=== PATIENT | female | born 1945 | race African-American/Black ===

== ENCOUNTER 2017-08-19 14:19 | Emergency (ER) | payer MEDICARE, MEDICAID ==
[2017-08-19 14:57] LABS: Bilirubin Negative (Negative); Blood, Urine Negative (Negative); Glucose, Urine (Dipstick) Negative (Negative); Ketone, Urine Trace mg/dL (Negative); Nitrite Negative (Negative); Protein, Urine (Dipstick) Negative (Neg-Trace); Urobilinogen 0.2 mg/dL (0.2-1.0)
[2017-08-19 14:58] LABS: Bacteria/HPF None Seen HPF (None Seen); Hyaline Casts/LPF 0-3 HYALINE CAST LPF (0-3 Hyaline); RBC/HPF 0-3 HPF (0-3); Squamous Epithelial 0-3 HPF (0-3)
[2017-08-19 15:06] LABS: Amphetamine Not Detected (NotDetected); Methadone Not Detected (NotDetected); Methamphetamine Not Detected (NotDetected)
[2017-08-19 15:55] LABS: #Eosinphils 0.1 thou/uL (0.0-0.7); #Lymphocytes 1.8 thou/uL (1.20-3.40); #Monocytes 0.4 thou/uL (0.11-0.59); #Neutrophils 5.1 thou/uL (1.40-6.50); %Basophils 0.2 % (0.0-1.0); %Eosinophils 0.9 % (0.0-10.0); %Lymphocytes 23.8 % (21.0-51.0); %Monocytes 5.8 % (0.0-10.0); Hematocrit 41.5 % (36.0-47.0); Red Blood Cell (RBC) Count 4.74 mill/uL (4.20-5.40); White Blood Cell (WBC) Count 7.3 thou/uL (4.8-10.8)
[2017-08-19 16:17] LABS: ALT (SGPT) 14 U/L (8-55); AST (SGOT) 18 U/L (5-34); Alkaline Phosphatase 111 U/L (40-150); Anion Gap 14 mmol/L (10-20); BUN (Urea Nitrogen) 24 mg/dL (9.8-20.1); Bilirubin, Total 0.3 mg/dL (0.2-1.2); Calc. Creatinine Clearance 0 mL/min (70-130); Calcium 9.4 mg/dL (7.8-10.44); Carbon Dioxide 25 mmol/L (23-31); Chloride 107 mmol/L (98-107); Estimated GFR-MDRD 85; Globulin 3.1 g/dL (2.4-3.5); Lipase 16 U/L (8-78); Protein, Total 7.2 g/dL (6.0-8.3)
== END 2017-08-19 18:54 | disposition home or self-care (01) ==
LOC: ERS 14:19
DX: R41.0 Disorientation, unspecified (principal); R44.3 Hallucinations, unspecified; I10 Essential (primary) hypertension; Z87.891 Personal history of nicotine dependence
CPT/HCPCS: 36415; 80053; 80306; 81003; 81015; 83690; 85025; 99284

== ENCOUNTER 2017-09-16 11:43 | Day surgery (SDC) | payer MEDICARE, MEDICAID ==
[2017-09-15 15:06] VITALS: BMI 28.3
[2017-09-16 12:58] LABS: Anion Gap 13 mmol/L (10-20); BUN (Urea Nitrogen) 19 mg/dL (9.8-20.1); Calc. Creatinine Clearance 90 mL/min (70-130); Calcium 9.7 mg/dL (7.8-10.44); Carbon Dioxide 26 mmol/L (23-31); Chloride 109 mmol/L (98-107); Estimated GFR-MDRD Greater than 90; Glucose 109 mg/dL (83-110); Potassium 3.5 mmol/L (3.5-5.1); Sodium 144 mmol/L (136-145)
--- NOTE | 2017-09-16 15:37 | MRI ---
BRAIN MRI WITH AND WITHOUT CONTRAST: DATE: 09/16/17. COMPARISON: None. HISTORY: Hallucinations. TECHNIQUE: Multiplanar, multisequence MR imaging of the brain obtained with and without contrast. FINDINGS: The diffusion weighted imaging demonstrates no evidence for acute infarction. The axial gradient echo imaging demonstrates no evidence for intracranial hemorrhage. There are numerous prominent Virchow-Robbin spaces noted throughout the supratentorial brain parenchy ma with a frontal predominance. There is associated diffuse mild degree of cerebral volume loss. Postcontrast imaging demonstrates no abnormal enhancement within the brain parenchyma. The imaged paranasal sinuses and mastoid air cells demonstrate normal T2 signal intensity. Arterial flow voids at axial level of skull base appear unremarkable. On the T2 weighted imaging. IMPRESSION: 1. Cerebral volume loss with numerous prominent Virchow-Robbin spaces seen throughout the supratento rial brain parenchyma. No intracranial hemorrhage, evidence of acute infarction, ventriculomegaly, m ass effect, or abnormal enhancement seen. 2. The prominence of the Virchow-Bull space is consistent with etat crible. POS: [facility]
[2017-09-16] MEDS ORDERED: Gadobenate Dimeglumine 529 MG/1 ML (20ML VIAL) ONE (15:59)
--- NOTE | 2017-09-18 00:50 | EKG ---
Test Reason : PREOP Blood Pressure : / mmHG Vent. Rate : 057 BPM Atrial Rate : 057 BPM P-R Int : 148 ms QRS Dur : 092 ms QT Int : 410 ms P-R-T Axes : 049 040 011 degrees QTc Int : 399 ms Sinus bradycardia Otherwise normal ECG No previous ECGs available Confirmed by POLLO AVALOS, DR. Ruggiero ([id number]) on 09/18/2017 12:49:46 AM Referred By: HUMBLE Confirmed By:DR. Bahman ABAD MD
== END 2017-09-16 15:55 | disposition home or self-care (01) ==
LOC: SDC/OP 11:43 → EDSTATUS 14:00 → SDC/OP 15:55
PROVIDERS: ATTEND Psychiatry & Neurology Neurology
DX: R44.3 Hallucinations, unspecified (principal); G31.83 Neurocognitive disorder with Lewy bodies; Z79.84 Long term (current) use of oral hypoglycemic drugs; Z79.899 Other long term (current) drug therapy; Z88.0 Allergy status to penicillin
CPT/HCPCS: 36415; 70553; 80048; 93005; 93010; A9579

== ENCOUNTER 2017-09-24 07:59 | Outpatient (CLI) | payer MEDICARE, MEDICAID ==
--- NOTE | 2017-09-24 15:25 | NM ---
NUCLEAR MEDICINE CHELSI SCAN: DATE: 09/24/17. 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 4.7 mCi of I-123 of Ioflupane injected IV 1 hour later. 3-hour delayed scintigraphy of the brain performed. FINDINGS: There is uptake in the bilateral caudate nuclei, but no uptake in the bilateral putamina. This patte rn is typically seen with Parkinsonism, such as idiopathic Parkinson's disease, multiple-system atrop hy (MSA), and progressive supranuclear palsy (PSP). This pattern can sometimes also be seen with Deyvi y body disease, although not consistently. 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 POS: [facility]
== END 2017-09-24 08:00 | disposition home or self-care (01) ==
LOC: NM 07:59
PROVIDERS: ATTEND Psychiatry & Neurology Neurology
DX: R44.3 Hallucinations, unspecified (principal); G31.89 Other specified degenerative diseases of nervous system; R94.09 Abnormal results of other function studies of central nervous system
CPT/HCPCS: 78607; A9584

== ENCOUNTER 2017-10-22 07:56 | Observation (INO) | payer MEDICARE, MEDICAID ==
[2017-10-22 08:34] LABS: #Monocytes 0.3 thou/uL (0.11-0.59); #Neutrophils 2.7 thou/uL (1.40-6.50); %Basophils 0.4 % (0.0-1.0); %Eosinophils 0.4 % (0.0-10.0); %Lymphocytes 24.8 % (21.0-51.0); %Monocytes 7.3 % (0.0-10.0); %Neutrophils 67.1 % (42.0-75.0); Hemoglobin 13.9 g/dL (12.0-16.0); Mean Corpuscular HGB CONC 33.4 g/dL (32.0-36.0); Mean Corpuscular Hemoglobin 28.5 pg (27.0-31.0); Mean Corpuscular Volume 85.3 fl (81.0-99.0); Mean Platelet Volume 7.3 fL (7.4-10.4); Platelet Count 166 thou/uL (130-400); RBC Distribution Width 13.2 % (11.5-14.5)
[2017-10-22 08:55] LABS: ALT (SGPT) 18 U/L (8-55); AST (SGOT) 19 U/L (5-34); Albumin 3.9 g/dL (3.4-4.8); Alkaline Phosphatase 118 U/L (40-150); Anion Gap 12 mmol/L (10-20); BUN (Urea Nitrogen) 12 mg/dL (9.8-20.1); Bilirubin, Total 0.8 mg/dL (0.2-1.2); CK (CPK) 94 U/L (29-168); Calc. Creatinine Clearance 0 mL/min (70-130); Calcium 9.4 mg/dL (7.8-10.44); Carbon Dioxide 29 mmol/L (23-31); Chloride 103 mmol/L (98-107); Estimated GFR-MDRD 88; Globulin 2.9 g/dL (2.4-3.5); Glucose 107 mg/dL (83-110); Potassium 3.6 mmol/L (3.5-5.1); Protein, Total 6.8 g/dL (6.0-8.3); Sodium 140 mmol/L (136-145)
[2017-10-22 09:02] LABS: CKMB 1.6 ng/mL (0-6.6); Troponin I Less than 0.010 ng/mL (< 0.028)
--- NOTE | 2017-10-22 09:35 | RAD ---
PORTABLE CHEST ONE VIEW: Date: 10-22-17 Time: 9:11 a.m. History: Syncope. FINDINGS/IMPRESSION: The heart size is normal. No confluent areas of consolidation, pneumothorax, or large effusions are s een. POS: [facility]
--- NOTE | 2017-10-22 09:42 | CT ---
CT BRAIN WITHOUT CONTRAST: HISTORY: Syncope. FINDINGS: No evidence of acute infarct, hemorrhage, midline shift, or abnormal extraaxial fluid collections are seen. The ventricular size is normal and the basilar cisterns patent. Findings in the supratentori al brain parenchyma with frontal predominance, consistent with numerous prominent Virchow-Keven space s seen on brain MRI of 09/16/17 are demonstrated. The bony calvarium is intact. IMPRESSION: No CT evidence of acute intracranial process. POS: [facility]
[2017-10-22] MEDS ORDERED: HumaLOG 300 UNITS/3 ML VIAL SC PRN ×2 (11:41)
[2017-10-22] MEDS ORDERED: Dextrose 50% Abboject 50 ML SYRINGE SLOW IVP PRN (11:41)
[2017-10-22] MEDS ORDERED: Dextrose 5% in Water 1,000 ML IV PRN (11:41)
[2017-10-22] MEDS ORDERED: Ondansetron ODT 4 MG TAB PO PRN (11:41)
[2017-10-22] MEDS ORDERED: Ondansetron HCl/PF 4 MG/2 ML Vial IVP PRN (11:41)
[2017-10-22] MEDS ORDERED: Loperamide HCl 2 MG CAP PO PRN (11:41)
[2017-10-22] MEDS ORDERED: Diabetic Tussin 200 MG/10 ML UDCUP PO PRN (11:41)
[2017-10-22] MEDS ORDERED: HYDROcodone/Acetaminophen 5/325 mg Tablet PO PRN ×2 (11:41)
[2017-10-22] MEDS ORDERED: Zolpidem Tartrate 5 MG TAB PO PRN (11:41)
[2017-10-22] MEDS ORDERED: Sodium Chloride 0.65% Nasal 44 ML BOT EA NARE PRN (11:41)
[2017-10-22] MEDS ORDERED: Senokot 8.6 MG TAB PO PRN (11:41)
[2017-10-22] MEDS ORDERED: Chloraseptic Spray 180 ml Bottle PO PRN (11:41)
[2017-10-22] MEDS ORDERED: Mag-Al 1200 mg/1200 mg/30 ML UDCUP PO PRN ×2 (11:41)
[2017-10-22] MEDS ORDERED: Milk Of Magnesia 30 ML UDCUP PO PRN (11:41)
[2017-10-22] MEDS ORDERED: Loratadine 10 MG TAB PO PRN (11:41)
[2017-10-22] MEDS ORDERED: hydrALAZINE 20 MG/ML VIAL SLOW IVP PRN (11:41)
[2017-10-22] MEDS ORDERED: Acetaminophen 325 MG TAB PO PRN ×2 (11:41)
[2017-10-22] MEDS ORDERED: Lorazepam 2 MG/ML VIAL ONE (12:20)
--- NOTE | 2017-10-22 13:27 | ULT ---
BILATERAL CAROTID DUPLEX ULTRASOUND: HISTORY: Syncope. TECHNIQUE: Sanchez scale ultrasound with color flow and spectral Doppler imaging of the extracranial carotid artery systems was performed bilaterally. FINDINGS: Mild plaque formation is seen. The peak systolic velocity in the right ICA measures 66 cm/s with an end-diastolic velocity of 13 cm/ s and a systolic ratio of 0.75. The peak systolic velocity in the left ICA measures 96 cm/s with an end-diastolic velocity of 19 cm/s and a systolic ratio of 1.11. Flow in both vertebral arteries remains antegrade. IMPRESSION: No evidence of hemodynamically significant stenosis. POS: [facility]
--- NOTE | 2017-10-22 13:28 | MRI ---
MRI BRAIN WITHOUT CONTRAST: HISTORY: Syncope. Weakness. COMPARISON: MRI from 09/16/2017. CORRELATION: CT scan from earlier today. FINDINGS: No restricted diffusion is seen. The numerous prominent Virchow-Keven spaces noted throughout the neri pratentorial brain parenchyma, with a frontal predominance on the previous exam, are redemonstrated. Associated diffuse mild degree of cerebral volume loss is stable. No evidence of infarct, hemorrhage, midline shift, or abnormal extraaxial fluid collections is seen. There is mild mucosal disease of the paranasal sinuses. IMPRESSION: No evidence of acute intracranial process. POS: [facility]
--- NOTE | 2017-10-22 14:14 | SS ---
PRIMARY CARE PHYSICIAN: Lashell Matthews M.D. REASON FOR ADMISSION: Unwitnessed fall. HISTORY OF PRESENT ILLNESS: A 72-year-old -[place] female with a history of Parkinson's dise ase who had yesterday fall which was unwitnessed. She reports that she felt weakness on her left low er extremity and she was feeling numb in both lower extremities below waist. She was not able to con trol herself and she fell down on the floor. She did not lose any consciousness. With help, she was able to stand up. She was not having any pain. She did not injure anywhere. She did not have any fever, chills, chest pain, palpitation, dizziness. She denies any orthopnea or PND, but she does hav e bilateral lower extremity pitting edema especially over foot. Patient also noticed that for last c ouple of days she was dragging her left lower extremity. Currently, patient is able to move all 4 limbs. She does not have any pain anywhere in her body. Wi th these symptoms, she presented in the emergency room and emergency room physician did CT brain whic h was normal, but there was concern of underlying stroke versus syncope that is why the ER physician decided to keep this patient in hospital for observation. After admission, we did MRI brain. MRI brain came back normal. Carotid Doppler came back normal wit hout any stenosis and when I saw this patient in the emergency room, patient did not have any focal n eurological deficit. She was normal. She denies any UTI symptoms. She denies any constipation, genet rrhea, melena, hematochezia. She denies any flu-like illness. ALLERGIES: PENICILLIN. CURRENT HOME MEDICATIONS: The patient does not have any medications with her at this point, so unabl e to review, but based on our previous hospitalization and discharge summary, patient is on the follo wing medications: Amlodipine 5 mg p.o. daily, Celexa 10 mg p.o. daily, Lasix 20 mg p.o. b.i.d., metf ormin 500 mg p.o. daily, oxybutynin 5 mg p.o. daily, potassium chloride 10 mEq p.o. daily, and Seroqu el 50 mg p.o. at bedtime. REVIEW OF SYSTEMS: The following complete review of systems was negative, unless otherwise mentioned in the HPI or below: Constitutional: Weight loss or gain, ability to conduct usual activities. Skin: Rash, itching. Eyes: Double vision, pain. ENT/Mouth: Nose bleeding, neck stiffness, pain, tenderness. Cardiovascular: Palpitations, dyspnea on exertion, orthopnea. Respiratory: Shortness of breath, wheezing, cough, hemoptysis, fever or night sweats. Gastrointestinal: Poor appetite, abdominal pain, heartburn, nausea, vomiting, constipation, or diarr hea. Genitourinary: Urgency, frequency, dysuria, nocturia. Musculoskeletal: Pain, swelling. Neurologic/Psychiatric: Anxiety, depression. Allergy/Immunologic: Skin rash, bleeding tendency. Please see my HPI for pertinent positive and negative. All other review of systems reviewed and nega tive except as mentioned in HPI. PAST MEDICAL HISTORY: Diabetes type 2, hypertension, Parkinson's disease, recurrent urinary tract in fection. PAST PSYCHIATRIC HISTORY: Anxiety and depression. PAST SURGICAL HISTORY: Recent colonoscopy and polypectomy. SOCIAL HISTORY: Patient drinks alcohol socially and occasionally. She is a former smoker. She quit smoking in 1974. She lives at home with her . FAMILY HISTORY: No strong family history of premature coronary artery disease, stroke or cancer. No family history of sudden cardiac . EMERGENCY ROOM COURSE: Reviewed. PHYSICAL EXAMINATION: VITAL SIGNS: On arrival, blood pressure 162/69, pulse 72, respiratory rate 16, temperature 99.3, sat uration 94% on room air, weight 72 kilograms. GENERAL: Patient is currently alert, awake, no obvious acute distress. HEAD: Normocephalic, atraumatic. EYES: Pupils round and reactive to light. Extraocular muscle intact. No nystagmus. ENT: Oropharynx within normal limits. Moist mucous membranes, no oral lesion, no pharyngeal erythem a, no exudate. NECK: Supple, no JVD, no thyromegaly, no carotid bruit. No jugular venous distention. LUNGS: Clear to auscultation without any rhonchi or rales. CARDIAC: S1 and S2 regular. No murmur, no gallop, no rub. ABDOMEN: Soft, bowel sounds present, nontender, nondistended. No organomegaly, no mass, no suprapub ic tenderness. BACK: Examination unremarkable. No CVA tenderness. EXTREMITIES: Upper extremity passive movements of all joints are normal. Lower extremity; patient i s slightly weak on the left side, but she is very hard to determine because she is not cooperative co mpletely with strength phipps. Sensation is intact. Reflexes symmetrical. No cerebellar sign. NEUROLOGIC: Patient is alert and oriented x3. Cranial nerves II-XII intact. I am not able to find any focal neurological deficit on neurologic examination. SKIN: No skin rash. PSYCHIATRIC: Normal affect. IMAGING DATA AND SIGNIFICANT LABORATORY DATA: 1. EKG showing normal sinus rhythm. 2. CT brain based on my review, no acute intracranial process. 3. Chest x-ray based on my review, no acute cardiopulmonary process. 4. MRI brain based on my review and reported as no acute CVA. 5. Carotid Doppler based on my review and reported as no stenosis. 6. CBC: WBC 4.0, hemoglobin 13.9, platelets 166. 7. BMP: Sodium 140, potassium 3.6, chloride 103, carbon dioxide 29, anion gap 12, BUN 12, creatinin e 0.78, glucose 107, calcium 9.4. 8. LFT: AST 19, ALT 18, alkaline phosphatase 118, and albumin 3.9. CK 94, CK-MB 1.6, troponin I le ss than 0.010. ASSESSMENT AND PLAN/IMPRESSION: 1. Unwitnessed mechanical fall. Based on history, I am not suspecting syncope given there is no los s of consciousness. I am not suspecting any acute CVA given symptoms started about 4 days ago of monique gging leg and fall yesterday and negative CT scan and MRI brain is also normal and carotid Doppler is also unremarkable. Her electrocardiogram was normal and monitor in the emergency room not showing a ny arrhythmia and patient does not have any palpitations, so arrhythmia unlikely. We will keep this patient in the hospital for few more hours and later on today we will consider discharging her home i f continued to be stable. 2. Hypertension. Continue amlodipine 5 mg p.o. daily and Lasix 20 mg p.o. b.i.d. 3. Diabetes type 2. Continue metformin 500 mg p.o. daily. Watch for hyperglycemia protocol treatme nt. 4. Recurrent urinary tract infection. I will check urinalysis just to make sure there is no urinary tract infection going on. If her urinalysis is suggestive of urinary tract infection, then I will g rissa her oral antibiotic therapy. We will continue Ditropan 5 mg p.o. daily. 5. Anxiety and depression. Continue Celexa 10 mg p.o. daily and Seroquel 50 mg p.o. at bedtime. 6. Parkinson's disease. The patient is not on any specific treatment for Parkinson's disease at thi s point. 7. Deep venous thrombosis prophylaxis not needed because we are expecting discharge maybe later on t . 8. Gastrointestinal prophylaxis, Pepcid 20 mg p.o. b.i.d. CODE STATUS: Patient is FULL CODE. Patient's is surrogate decision maker. Disposition plan based on clinical course. We may cancel echocardiography if it is not done today. DATE OF ADMISSION: 10/22/2017 DATE OF DISCHARGE: 10/22/2017 DISCHARGE DISPOSITION: Home. PRIMARY DISCHARGE DIAGNOSES: Mechanical fall, ruled out syncope, CVA and cardiac etiology. SECONDARY DISCHARGE DIAGNOSES: Hypertension, recurrent urinary tract infection, Parkinson's disease, diabetes type 2, anxiety and depression. PRIMARY PROCEDURES/OPERATIONS: None. RADIOLOGICAL INVESTIGATIONS: Chest x-ray, CT brain, MRI brain, carotid Doppler. SIGNIFICANT LABORATORY DATA: Please see above. CONTRAINDICATIONS: None. CODE STATUS: FULL CODE. INPATIENT CONSULTANTS: None. ALLERGIES: PENICILLIN. DISCHARGE PLAN: Post hospital, patient is advised to follow up with primary care physician in 1 week . HOSPITAL COURSE: The patient was having unwitnessed mechanical fall at home and subsequently we susp ected syncope versus CVA and that is why we are going to keep in hospital. She was admitted at 10:50 a.m. and we will observe for few more hours in hospital on telemetry floor. We have already ruled o ut CVA, cardiac etiology and arrhythmia so far. We will consider discharging this patient around 7:0 0 p.m. The patient is admitted and discharged on the same day.
[2017-10-22 16:03] VITALS: BMI 27.3
[2017-10-22 17:39] LABS: Bilirubin Negative (Negative); Blood, Urine Negative (Negative); Clarity CLEAR (Clear); Glucose, Urine (Dipstick) Negative (Negative); Leukocyte Negative (Negative); Nitrite Negative (Negative); Protein, Urine (Dipstick) Negative (Neg-Trace); Specific Gravity, Urine 1.016 (1.002-1.036); pH, Urine 5.5 (5.0-9.0)
[2017-10-22 17:48] LABS: Bacteria/HPF None Seen HPF (None Seen); Hyaline Casts/LPF 0-3 HYALINE CAST LPF (0-3 Hyaline); Squamous Epithelial None Seen HPF (0-3); WBC/HPF 0-3 HPF (0-3)
[2017-10-22] MEDS: Furosemide 20 MG TAB PO SCH ×2 (20:37→21:20)
[2017-10-22] MEDS: Famotidine 20 MG TAB PO SCH (20:37)
[2017-10-22] MEDS ORDERED: Non-Formulary Item 1 EACH (Quetiapine Fumarate [Seroquel] 50 MG) PO SCH (21:00)
[2017-10-22] MEDS ORDERED: Famotidine 20 MG TAB PO SCH (21:00)
[2017-10-23 04:47] LABS: Cardiac Risk 4.6 (Less than 4.5)
[2017-10-23] MEDS ORDERED: metFORMIN 500 MG TAB PO SCH (08:00)
[2017-10-23] MEDS: Furosemide 20 MG TAB PO SCH (08:43)
[2017-10-23] MEDS: Famotidine 20 MG TAB PO SCH (08:43)
[2017-10-23] MEDS ORDERED: Oxybutynin 5 MG TAB PO SCH (09:00)
[2017-10-23] MEDS ORDERED: Citalopram 10 MG TAB PO SCH (09:00)
[2017-10-23] MEDS ORDERED: Amlodipine 5 MG TAB PO SCH (09:00)
[2017-10-23] MEDS ORDERED: Potassium Chloride 10 MEQ TAB PO SCH (09:00)
[2017-10-23] MEDS ORDERED: Prevnar 13-Val Conj/PF 0.5 ML SYRINGE IM ONE (09:00)
--- NOTE | 2017-10-23 09:46 | PDOC.PN ---
- Subjective Encounter Start Date: 10/23/17 Encounter Start Time: 07:30 Patient seen and examined. No new complaints. No overnight events - Objective Resuscitation Status: Resuscitation Status FULL:Full Resuscitation MAR Reviewed: Yes Vital Signs & Weight: Vital Signs (12 hours) Temp Pulse Pulse Pulse Resp BP BP 10/23/17 08:42 70 10/23/17 08:15 64 68 133/60 10/23/17 07:55 98.8 F 70 18 10/23/17 07:39 98.8 F 70 18 10/23/17 04:01 98.9 F 68 16 151/67 H 10/22/17 23:52 98.8 F 62 20 BP BP Pulse Ox 10/23/17 08:42 10/23/17 08:15 115/57 L 10/23/17 07:55 10/23/17 07:39 153/67 H 94 L 10/23/17 04:01 94 L 10/22/17 23:52 151/67 H 96 Weight Weight 164 lb I&O: 10/22/17 10/23/17 10/24/17 06:59 06:59 06:59 Intake Total 240 Output Total 500 300 Balance -500 -60 Result Diagrams: 10/22/17 08:19 10/22/17 08:19 Additional Labs: Accuchecks 10/23/17 10/22/17 10/22/17 05:47 20:44 17:15 POC Glucose 95 150 H 104 Radiology Reviewed by me: Yes (mri and carotid us) EKG Reviewed by me: Yes (nsr) Phys Exam - Physical Examination Constitutional: NAD HEENT: PERRLA, moist MMs, sclera anicteric Neck: no JVD, supple Respiratory: no wheezing, no rales, no rhonchi Cardiovascular: RRR, no significant murmur, no rub Gastrointestinal: soft, non-tender, no distention, positive bowel sounds Musculoskeletal: no edema, pulses present Neurological: non-focal, normal sensation Lymphatic: no nodes Psychiatric: normal affect, A&O x 3 Skin: no rash, normal turgor Dx/Plan (1) Fall Code(s): W19.XXXA - UNSPECIFIED FALL, INITIAL ENCOUNTER Status: Acute (2) Anxiety and depression Code(s): F41.8 - OTHER SPECIFIED ANXIETY DISORDERS Status: Chronic (3) Diabetes type 2, controlled Code(s): E11.9 - TYPE 2 DIABETES MELLITUS WITHOUT COMPLICATIONS Status: Chronic (4) Hypertension Code(s): I10 - ESSENTIAL (PRIMARY) HYPERTENSION Status: Chronic - Plan cont current plan of care, plan discussed w/ family, PT/OT, psychosocial rehabilitation counselor * CVA and cardiac etiology ruled out * needs rehab * so once rehab accept will consider discharge * medication reviewed as below * symptomatic treatment. Review of Systems - Review of Systems Constitutional: negative: fever, chills, sweats, weakness, malaise, other ENT: negative: Ear Pain, Ear Discharge, Nose Pain, Nose Discharge, Nose Congestion, Mouth Pain, Mouth Swelling, Throat Pain, Throat Swelling, Other Respiratory: negative: Cough, Dry, Shortness of Breath, Hemoptysis, SOB with Excertion, Pleuritic Pain, Sputum, Wheezing Cardiovascular: negative: chest pain, palpitations, orthopnea, paroxysmal nocturnal dyspnea, edema, light headedness, other Gastrointestinal: negative: Nausea, Vomiting, Abdominal Pain, Diarrhea, Constipation, Melena, Hematochezia, Other Genitourinary: negative: Dysuria, Frequency, Incontinence, Hematuria, Retention , Other Musculoskeletal: negative: Neck Pain, Shoulder Pain, Arm Pain, Back Pain, Hand Pain, Leg Pain, Foot Pain, Other Skin: negative: Rash, Lesions, May[place], Bruising, Other - Medications/Allergies Allergies/Adverse Reactions: Allergies Allergy/AdvReac Type Severity Reaction Status Date / Time Penicillins Allergy Intermediate Rash Verified 09/15/17 14:51 Medications: Current Medications Acetaminophen (Tylenol) 650 mg PO Q4H PRN PRN Reason: Headache/Fever or Pain Hydrocodone Bitart/Acetaminophen (Sachse 5/325) 1 tab PO Q4H PRN PRN Reason: Moderate Pain (4-6) Al Hydroxide/Mg Hydroxide (Maalox) 30 ml PO Q6H PRN PRN Reason: Heartburn or Indigestion Al Hydroxide/Mg Hydroxide (Maalox) 15 ml PO Q4H PRN PRN Reason: Heartburn or Indigestion Amlodipine Besylate (Norvasc) 5 mg PO DAILY [facility] Last Admin: 10/23/17 08:42 Dose: 5 mg Aspirin (Aspirin Chewable) 81 mg PO DAILY [facility] Last Admin: 10/23/17 08:42 Dose: 81 mg Citalopram Hydrobromide (Celexa) 10 mg PO DAILY [facility] Last Admin: 10/23/17 08:43 Dose: 10 mg Dextrose/Water (Dextrose 50%) 25 gm SLOW IVP PRN PRN PRN Reason: Hypoglycemia Famotidine (Pepcid) 20 mg PO BID [facility] Last Admin: 10/23/17 08:43 Dose: 20 mg Furosemide (Lasix) 20 mg PO BID [facility] Last Admin: 10/23/17 08:43 Dose: 20 mg Glucagon (Glucagon) 1 mg IM PRN PRN PRN Reason: Hypoglycemia Guaifenesin (Robitussin Sf) 200 mg PO Q4H PRN PRN Reason: Cough Hydralazine HCl (Apresoline) 10 mg SLOW IVP Q4H PRN PRN Reason: Systolic BP > 180 Dextrose/Water (D5w) 1,000 mls @ 0 mls/hr IV .Q0M PRN; As Directed PRN Reason: Hypoglycemia Insulin Human Lispro (Humalog) 0 units SC .MODERATE SLIDING SC PRN PRN Reason: Moderate Correctional Scale Insulin Human Lispro (Humalog) 0 units SC .BEDTIME SLIDING SC PRN PRN Reason: Bedtime Correctional Scale Loperamide HCl (Imodium) 2 mg PO PRN PRN PRN Reason: Diarrhea/Loose Stools Loratadine (Claritin) 10 mg PO DAILYPRN PRN PRN Reason: Sinus Symptoms Magnesium Hydroxide (Milk Of Magnesium) 30 ml PO DAILYPRN PRN PRN Reason: Constipation Metformin HCl (Glucophage) 500 mg PO [facility] Last Admin: 10/23/17 08:42 Dose: 500 mg Ondansetron HCl (Zofran Odt) 4 mg PO Q6H PRN PRN Reason: Nausea/Vomiting Ondansetron HCl (Zofran) 4 mg IVP Q6H PRN PRN Reason: Nausea/Vomiting Oxybutynin Chloride (Ditropan) 5 mg PO DAILY [facility] Last Admin: 10/23/17 08:43 Dose: 5 mg Phenol (Chloraseptic [place] 180 Ml Bot) 0 ml PO PRN PRN PRN Reason: Sore Throat Potassium Chloride (Klor-Con 10) 10 meq PO DAILY [facility] Last Admin: 10/23/17 08:43 Dose: 10 meq Quetiapine Fumarate (Seroquel) 50 mg PO [facility] Last Admin: 10/22/17 20:37 Dose: 50 mg Senna (Senokot) 2 tab PO HSPRN PRN PRN Reason: Constipation Sodium Chloride ([place] Nasal [place] 0.65%) 0 ml EA NARE QIDPRN PRN PRN Reason: Nasal Congestion Sodium Chloride (Flush - Normal Saline) 10 ml IVF Q12HR [facility] Last Admin: 10/23/17 08:43 Dose: 10 ml Sodium Chloride (Flush - Normal Saline) 10 ml IVF PRN PRN PRN Reason: Saline Flush Zolpidem Tartrate (Ambien) 5 mg PO HSPRN PRN PRN Reason: Insomnia
--- NOTE | 2017-10-23 10:59 | DIS ---
PRIMARY CARE PHYSICIAN: Lashell Matthews M.D. DATE OF ADMISSION: 10/22/2017 DATE OF DISCHARGE: 10/23/2017 DISCHARGE DISPOSITION: Rehabilitation if accepted. PRIMARY DISCHARGE DIAGNOSES: 1. Mechanical fall. 2. Physical deconditioning. 3. Cerebrovascular accident and cardiac etiology ruled out. SECONDARY DISCHARGE DIAGNOSES: Anxiety, depression, diabetes type 2, hypertension. PRIMARY PROCEDURE/OPERATION: None. RADIOLOGICAL INVESTIGATION: MRI brain normal. Carotid Doppler normal. CT brain normal. Chest x-ra y normal. SIGNIFICANT LABS: WBC 4.0, hemoglobin 13.9, platelets 166, sodium 140, creatinine 0.78. Electrolyte s and LFT normal. Cardiac enzymes negative. LDL 93. Urinalysis normal. DISCHARGE MEDICATIONS: Amlodipine 5 mg p.o. daily, Celexa 20 mg p.o. daily, Glucophage 500 mg p.o. d aily, Ditropan 5 mg p.o. daily, potassium chloride 10 mEq p.o. daily, Seroquel 50 mg p.o. at bedtime. CONTRAINDICATIONS: None. CODE STATUS: FULL CODE. INPATIENT CONSULTANTS: None. ALLERGIES: PENICILLIN. DISCHARGE PLAN: Post hospital, the patient is planned for discharge to rehab if accepted. HOSPITAL COURSE: A 72-year-old female with above-mentioned medical problems who had a mechanical fal l at home and subsequently she was feeling weak. She was brought to the ER. There was concern of st roke and that is why we did a CT brain in the emergency room which was normal. Subsequently, after a dmission, we did MRI brain and carotid Doppler that was also normal. All routine blood tests were un remarkable. The patient was experiencing generalized weakness and that is why we kept this patient i n the hospital overnight and we started PT, OT and rehab screen. If this patient is accepted for fazal abilitation, then we will consider this patient is discharged to rehab later on today. So far, echocardiography was ordered, but was not done. We will follow up on it if it is done. The patient was seen and examined at bedside today. The patient and her requesting rehab jonathan cement and that is why we have rehab screen today. Please see my progress note from today for furthe r details.
[2017-10-23 15:40] VITALS: BP 146/66; TEMP 98.4
== END 2017-10-23 18:25 ==
LOC: ERS 07:56 → ERHOLD 10:50 → 2SW 15:35
PROVIDERS: ADMIT Internal Medicine; ATTEND Internal Medicine
DX: R53.81 Other malaise (principal); F32.9 Major depressive disorder, single episode, unspecified; F41.9 Anxiety disorder, unspecified; R55 Syncope and collapse; E11.9 Type 2 diabetes mellitus without complications; I10 Essential (primary) hypertension; Z88.0 Allergy status to penicillin; Z79.84 Long term (current) use of oral hypoglycemic drugs; Z79.899 Other long term (current) drug therapy; W19.XXXA Unspecified fall, initial encounter
CPT/HCPCS: 70450; 70551; 71045; 80053; 80061; 81001; 82550; 82553; 82962 ×2; 84484; 85025; 93005; 93880; 94760; 96374; 97116; 97139 ×2; 97530; 99285; G0378 ×2; G8978; G8979; G8987; G8988; 36415; 36416; A4216; J2060

== ENCOUNTER 2019-09-28 17:34 | Inpatient (IN) | payer MEDICARE, MEDICAID ==
[2019-09-28 18:07] LABS: Bacteria/HPF None Seen HPF (None Seen); Bilirubin Negative (Negative); Blood, Urine Trace (Negative); Clarity Clear (Clear); Glucose, Urine (Dipstick) Normal (Negative); Leukocyte Negative Leu/uL (Negative); Nitrite Negative (Negative); Protein, Urine (Dipstick) 10 mg/dL (Neg-Trace); RBC/HPF 0-3 HPF (0-3); Squamous Epithelial 0-3 HPF (0-3); Urobilinogen Normal mg/dL (Less than 2); WBC/HPF 0-3 HPF (0-3)
[2019-09-28 18:46] LABS: #Basophils 0.1 thou/uL (0.0-0.2); #Lymphocytes 1.1 thou/uL (1.20-3.40); #Monocytes 0.6 thou/uL (0.11-0.59); #Neutrophils 9.3 thou/uL (1.40-6.50); %Basophils 0.6 % (0.0-1.0); %Eosinophils 0.2 % (0.0-10.0); %Lymphocytes 9.9 % (21.0-51.0); %Monocytes 5.7 % (0.0-10.0); %Neutrophils 83.6 % (42.0-75.0); Hemoglobin 14.7 g/dL (12.0-16.0); Mean Corpuscular HGB CONC 32.6 g/dL (32.0-36.0); Mean Corpuscular Hemoglobin 27.5 pg (27.0-31.0); Mean Corpuscular Volume 84.3 fL (78.0-98.0); Mean Platelet Volume 7.2 fL (7.4-10.4); Platelet Count 265 thou/uL (130-400); RBC Distribution Width 12.6 % (11.5-14.5); Red Blood Cell (RBC) Count 5.36 mill/uL (4.20-5.40); White Blood Cell (WBC) Count 11.1 thou/uL (4.8-10.8)
--- NOTE | 2019-09-28 18:51 | RAD ---
PORTABLE CHEST: 09/28/19 HISTORY: Fever. COMPARISON: 10/27/17 study. The film is of suboptimal inspiration. The heart size is within normal limits concerning the portable technique. There is some linear changes in the lung bases probably related to atelectasis or scarrin g. IMPRESSION: Subsegmental atelectatic changes in the lung bases. POS: [facility]
--- NOTE | 2019-09-28 19:00 | CT ---
CT OF BRAIN PERFORMED WITHOUT CONTRAST ENHANCEMENT: 09/28/19 HISTORY: Altered mental status with fever. History of Parkinson's and dementia. COMPARISON: A 10/22/17 study. Ventricular and cisternal system shows some fairly age appropriate change. There is decreased attenua tion of the periventricular white matter consistent with chronic white matter change. This is similar to the previous exam. No hemorrhage or mass effect. Mastoid air cells and visualized sinuses are cl ear. IMPRESSION: No acute intracranial abnormalities. POS: [facility]
[2019-09-28 19:02] LABS: ALT (SGPT) 7 U/L (8-55); AST (SGOT) 12 U/L (5-34); Albumin 4.2 g/dL (3.4-4.8); Alkaline Phosphatase 145 U/L (40-110); Anion Gap 16 mmol/L (10-20); BUN (Urea Nitrogen) 25 mg/dL (9.8-20.1); Bilirubin, Total 0.7 mg/dL (0.2-1.2); Calc. Creatinine Clearance 0 mL/min (70-130); Calcium 9.9 mg/dL (7.8-10.44); Carbon Dioxide 28 mmol/L (23-31); Chloride 99 mmol/L (98-107); Estimated GFR-MDRD 67; Globulin 3.4 g/dL (2.4-3.5); Glucose 126 mg/dL (83-110); Potassium 4.5 mmol/L (3.5-5.1); Protein, Total 7.6 g/dL (6.0-8.3); Sodium 138 mmol/L (136-145)
[2019-09-29 00:19] VITALS: BMI 24.5
[2019-09-29] MEDS: Acetaminophen 650 MG Suppository PR PRN (00:40)
[2019-09-29 01:26] LABS: Lactic Acid 1.5 mmol/L (0.5-2.2)
[2019-09-29] MEDS ORDERED: Dextrose 5% in Water 1,000 ML IV PRN (07:42)
[2019-09-29] MEDS ORDERED: Dextrose 50% Abboject 50 ML SYRINGE SLOW IVP PRN (07:42)
[2019-09-29] MEDS: Sodium Chloride 0.9% 1,000 ML IV SCH ×3 (08:33→22:00)
[2019-09-29] MEDS ORDERED: Prevnar 13-Val Conj/PF 0.5 ML SYRINGE IM ONE (09:00)
[2019-09-29] MEDS ORDERED: FLU VACC TS2019-20(65YR UP)/PF 180 MCG/0.5 ML SYRINGE IM ONE (09:00)
[2019-09-29] MEDS: Enoxaparin Sodium 40 MG/0.4 ML SYRINGE SC SCH (09:40)
[2019-09-29] MEDS: cefTRIAXone\\ROCEPHIN 2 GM in Sodium Chloride 0.9% 100 ML IVPB SCH (11:30)
--- NOTE | 2019-09-29 12:18 | HP ---
CHIEF COMPLAINT: Altered mental status and fever. HISTORY OF PRESENT ILLNESS: The patient is a 74-year-old female, who is admitted to the hospital with 2-day history of altered mental status, not taking her medications properly, not eating properly. Apparently, she was brought to the emergency room, found that she has fever of 101. She does not complain of anything, but she has Parkinson disease and she is quite severely demented. There was no fever or chills at home. There is no cough. PAST MEDICAL HISTORY: Positive for; 1. Hypertension. 2. Parkinson disease. 3. Diabetes mellitus type 2. 4. Dementia. 5. Frequent UTIs. PAST SURGICAL HISTORY: Unable to obtain. SOCIAL HISTORY: No history of cigarette smoking or alcohol intake as far as we know. No illicit drug user. FAMILY HISTORY: Unobtainable secondary to the patient's mental status. MEDICATIONS: 1. Spironolactone 25 mg once a day. 2. Amlodipine 5 mg once a day. 3. Aspirin 81 mg once a day. 4. Citalopram 10 mg once a day. 5. Aricept 5 mg once a day. 6. Namenda 20 mg once a day. 7. Furosemide 20 mg twice a day. 8. Metformin 500 mg twice a day. 9. Oxybutynin 5 mg once a day. 10. Risperidone 1 mg twice a day. REVIEW OF SYSTEMS: Unobtainable secondary to the patient's mental condition. PHYSICAL EXAMINATION: VITAL SIGNS: Temperature 98.6, pulse is 80, respiratory rate is 16, O2 saturations is 98% on room air, blood pressure is 139/62. GENERAL: The patient is calm and quiet. She is communicating with me in a very limited form. She follows my commands sporadically. She says that she knows that she is in the hospital, but she does not know the time or any other questions. She is not able to answer. She speaks sporadically. HEENT: Her pupils are very narrow and not very responsive to light. Oral mucosa is somewhat dry. NECK: Supple. LUNGS: Clear. HEART: S1 and S2 normal. No S3. No S4. ABDOMEN: Soft, nontender, nondistended. EXTREMITIES: 1+ peripheral edema similar bilaterally on both lower extremities. NEUROLOGIC: She tries to follow my simple commands, but this is just a sporadic response, most of the time she does not follow. She is able to move her all 4 extremities. There are no any focal deficits. LABORATORY DATA: Labs showed white count of 11.1, hemoglobin of 14.7, hematocrit 45.2, platelet count is 265,000. Normal electrolytes. BUN of 25, creatinine 0.98, glucose 126. Lactic acid 1.5, ALT 7, alkaline phosphatase 145. Procalcitonin 0.07. Urine showed trace of ketone and trace of blood. Otherwise, urinalysis within normal limits. IMAGING STUDIES: Electrocardiogram personally reviewed by me showed normal sinus rhythm, no ischemic changes. Brain CT personally reviewed by me showed no acute intracranial abnormalities. Chest x-ray personally reviewed by me showed some subsegmental atelectatic changes in the lung bases. IMPRESSION: 1. Altered mental status with fever, unclear etiology. 2. Dehydration. 3. Parkinson disease. 4. Diabetes mellitus type 2. 5. History of frequent urinary tract infections. 6. Dementia. 7. Hypertension. PLAN: Admission, full. Condition is guarded. Full code. IV fluids, normal saline at 100 mL/hour, and Tylenol p.r.n. for fever. LP. Consult with ID, Dr. Rodarte, case was discussed with him. Coverage with an acyclovir IV, vancomycin, and Rocephin for possible meningitis/encephalitis. We are going to hold her home medications for now. DVT prophylaxis with SCDs and Lovenox, and we will do Accu-Cheks q.6 hours. Job ID: [id number]
[2019-09-29] MEDS: Vancomycin HCl 1 GM in Premix Bag 1 BAG IVPB SCH (14:22)
--- NOTE | 2019-09-29 16:25 | CON ---
DATE OF CONSULTATION: 09/29/2019 REASON FOR CONSULTATION: Altered mental state. HISTORY OF PRESENT ILLNESS: A 74-year-old, who has a history of striatonigral degeneration, associated with Lewy body dementia according to , who had been followed by Dr. Mesa. She was on donepezil, Namenda, and Risperdal, and was staying at home, and according to the , she still was able to walk from time to time, but for the past 2 days, there was worsening of her functional state and he brought her in for evaluation. He did not notice any fever or chills. No respiratory symptoms. She did not complain of any pain. PAST MEDICAL HISTORY: Includes: 1. Lewy body dementia. 2. Parkinson disease. 3. Type 2 diabetes. 4. UTIs. 5. Hypertension. SOCIAL HISTORY: Lives with in [place]. Former smoker, quit in 1974. ALLERGIES: PENICILLIN WITH RASH. CURRENT MEDICATIONS: 1. Vancomycin. 2. Aldactone. 3. Risperidal. 4. Ditropan. 5. Glucophage. 6. Namenda. 7. Insulin. 8. Glucose. 9. Lasix. 10. Lovenox. 11. Aricept. 12. Ceftriaxone. 13. Ecotrin. PHYSICAL EXAMINATION: VITAL SIGNS: T-max 101 on arrival and she is now 98.3, blood pressure 140/60, pulse 70, respirations 16 to 25, and O2 saturation 93. SKIN: With a ridge of ulceration along the intergluteal area with surrounding hyperpigmentation and shallow blistering, probably from pressure damage. The patient has a peripheral IV access and is voiding in the diaper. No lymphadenopathy. HEENT: Ocular movements appeared to be conjugate. She has generalized hypomotility and rigidity. The pupils are equal. Conjunctivae normal. She does open her mouth. There are some white patches in the dorsum of her tongue, probably from bacterial colonization. She has quite a few teeth still remaining in place. NECK: Diffuse stiffness including the neck in all directions. No jugular vein distention. LUNGS: Symmetric. Clear breath sounds. CARDIAC: S1 and S2. Regular rate without murmurs. ABDOMEN: Not distended or tender. No organomegaly. No ascites. Question of bladder distention. EXTREMITIES: No joint inflammatory process. NEUROLOGIC: Again, she has rigidity with resting tremor in the upper extremities. Plantar responses are indifferent. No clonus. She is able to establish eye contact after a while and she will follow commands with a very delayed onset of response. She did know she was in the hospital, but it took quite a while for her to verbally reply to our question, probably from the Parkinson disease. She denies she had pain when I asked her. LABORATORY DATA: White cell count 11.1, hemoglobin 14.7, and platelets 265 with 82% neutrophils. Sodium 138, creatinine 0.98, alkaline phosphatase 145, transaminases normal, and albumin 4.2. Urinalysis with 0 wbc's. IMAGING STUDIES: A chest x-ray, which did not show any obvious infiltrates, but there are some atelectatic changes in the lung bases. Brain CT with no acute intracranial abnormalities noted. ASSESSMENT: 1. Lewy body disease with Parkinson disease with worsening mental state changes. 2. Diabetes. 3. Fever with mild leukocytosis. DISCUSSION: Differential diagnosis includes early respiratory tract infection including viral versus bacterial or an alternate site, for example urinary tract, that appears to be less likely in view of the normal urinalysis. An intraabdominal inflammatory process is less likely. 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 I do not think there is evidence to suggest bacterial meningitis or encephalitis at this point in time. She may benefit from additional Parkinson's treatment, but that would require a consultation with her neurologist, Dr. Mesa, and I will go ahead and place a consult for him. Continue antimicrobial therapy as treatment for presumptive early respiratory tract infection. Monitor blood cultures and urine culture. In view of the above, we will go ahead and cancel the spinal fluid evaluation and MRI of the brain. Job ID: [id number]
[2019-09-29] MEDS: Furosemide 20 MG TAB PO SCH (20:27)
[2019-09-29] MEDS: metFORMIN 500 MG TAB PO SCH (20:27)
[2019-09-29] MEDS: RisperDAL M-TAB 1 MG TAB PO SCH (20:27)
[2019-09-29] MEDS: Carbidopa/Levodopa 25-100 mg Tablet PO SCH (20:43)
[2019-09-30 04:14] LABS: #Lymphocytes 1.4 thou/uL (1.20-3.40); #Monocytes 0.6 thou/uL (0.11-0.59); #Neutrophils 6.1 thou/uL (1.40-6.50); %Basophils 0.2 % (0.0-1.0); %Eosinophils 0.2 % (0.0-10.0); %Lymphocytes 17.4 % (21.0-51.0); %Monocytes 6.9 % (0.0-10.0); %Neutrophils 75.3 % (42.0-75.0); Hemoglobin 13.2 g/dL (12.0-16.0); Mean Corpuscular HGB CONC 32.5 g/dL (32.0-36.0); Mean Corpuscular Hemoglobin 27.5 pg (27.0-31.0); Mean Corpuscular Volume 84.6 fL (78.0-98.0); Mean Platelet Volume 7.4 fL (7.4-10.4); Platelet Count 228 thou/uL (130-400); RBC Distribution Width 12.5 % (11.5-14.5); White Blood Cell (WBC) Count 8.1 thou/uL (4.8-10.8)
[2019-09-30 04:36] LABS: Anion Gap 11 mmol/L (10-20); BUN (Urea Nitrogen) 13 mg/dL (9.8-20.1); Calc. Creatinine Clearance 66 mL/min (70-130); Calcium 8.8 mg/dL (7.8-10.44); Carbon Dioxide 24 mmol/L (23-31); Chloride 105 mmol/L (98-107); Estimated GFR-MDRD Greater than 90; Glucose 94 mg/dL (83-110); Sodium 136 mmol/L (136-145)
[2019-09-30] MEDS: Spironolactone 25 MG TAB PO SCH ×2 (08:10→08:47)
[2019-09-30] MEDS: Aspirin 81 mg Enteric Coated Tablet PO SCH ×2 (08:46→09:10)
[2019-09-30] MEDS: Furosemide 20 MG TAB PO SCH ×3 (08:46→20:02)
[2019-09-30] MEDS: Oxybutynin 5 MG TAB PO SCH ×2 (08:46→09:11)
[2019-09-30] MEDS: metFORMIN 500 MG TAB PO SCH ×3 (08:46→20:01)
[2019-09-30] MEDS: Donepezil HCl 5 MG TAB PO SCH ×2 (08:47→09:11)
[2019-09-30] MEDS: RisperDAL M-TAB 1 MG TAB PO SCH ×3 (08:47→20:02)
[2019-09-30] MEDS: Carbidopa/Levodopa 25-100 mg Tablet PO SCH ×2 (08:47→17:27)
[2019-09-30] MEDS: Enoxaparin Sodium 40 MG/0.4 ML SYRINGE SC SCH ×2 (08:47→09:07)
[2019-09-30] MEDS: Sodium Chloride 0.9% 1,000 ML IV SCH ×2 (10:05→15:35)
[2019-09-30] MEDS: cefTRIAXone\\ROCEPHIN 2 GM in Sodium Chloride 0.9% 100 ML IVPB SCH (10:05)
[2019-09-30] MEDS: Vancomycin HCl 1 GM in Premix Bag 1 BAG IVPB SCH (11:38)
--- NOTE | 2019-09-30 14:31 | PRG ---
DATE OF SERVICE: 09/30/2019 SUBJECTIVE: The patient is seen and examined at bedside. Her is present in the room during my visit. He fed her. She did not take any medications this morning from the nurse. She asked the nurse to leave the room. OBJECTIVE: VITAL SIGNS: Blood pressure is 137/62, pulse is 66, temperature is 98.4, respirations 22, O2 saturation is 93% on room air. GENERAL: She does not follow my commands. She keeps her eyes closed. LUNGS: Breath sounds somewhat diminished at both bases. HEART: S1, S2 normal. No S3. No S4. ABDOMEN: Soft, nontender, nondistended. EXTREMITIES: No clubbing, cyanosis, or edema. NEUROLOGICAL: She keeps her eyes closed. She does not follow my commands. LABORATORY DATA: Normal CBC, normal chemistry. Glycemia is ranging from 96 to 138. Microbiology, two blood cultures negative. IMPRESSION: 1. Altered mental status with fever. The fever is improved. She was found to be dehydrated and she received fluids. 2. Dehydration, resolved. 3. Parkinson disease. Neuro consult pending. 4. Diabetes mellitus type 2. 5. Fever, unclear etiology, resolved. 6. History of frequent urinary tract infection with normal UA. 7. Dementia. 8. Hypertension. PLAN: We will continue her Rocephin. We will stop her vancomycin and acyclovir was stopped yesterday per Dr. Rodarte. Also he stopped MRI and LP. We are waiting for neurologist to come and see her. came to feed her and she eats. She ate some lunch as we speak. We will continue caring for this lady for the next 24 hours and tomorrow we will make decision whether she can be sent back home. We started on PT and OT if she will participate in those session. Job ID: [id number]
[2019-09-30] MEDS: HumaLOG 300 UNITS/3 ML VIAL SC PRN (16:39)
--- NOTE | 2019-09-30 17:02 | PRG ---
DATE OF SERVICE: 09/30/2019 Ms. Savage has a history of Lewy body dementia. She has had some progressive decline in her gait. She was getting around with the use of a walker prior to admission. Since admission, she has been very obstinate. She for the most part refused food and medication. They were only able to get one dose of medication down this morning. Try to start her on Sinemet yesterday. She might benefit from physical therapy and occupational therapy consultation. Overall, the situation is difficult. She continues to refuse food and we could consider a PEG tube placement. There are no other options for improving her mobility other than the Sinemet. Job ID: [id number]
[2019-09-30] MEDS: Acetaminophen 650 MG Suppository PR PRN (17:27)
[2019-10-01 04:49] LABS: #Basophils 0.1 thou/uL (0.0-0.2); #Eosinphils 0.1 thou/uL (0.0-0.7); #Lymphocytes 1.9 thou/uL (1.20-3.40); #Monocytes 0.5 thou/uL (0.11-0.59); #Neutrophils 4.2 thou/uL (1.40-6.50); %Basophils 0.8 % (0.0-1.0); %Eosinophils 1.2 % (0.0-10.0); %Lymphocytes 28.5 % (21.0-51.0); %Neutrophils 61.6 % (42.0-75.0); Hemoglobin 11.9 g/dL (12.0-16.0); Mean Corpuscular HGB CONC 32.4 g/dL (32.0-36.0); Mean Corpuscular Hemoglobin 27.9 pg (27.0-31.0); Mean Corpuscular Volume 86.1 fL (78.0-98.0); Mean Platelet Volume 7.8 fL (7.4-10.4); Platelet Count 206 thou/uL (130-400); RBC Distribution Width 12.6 % (11.5-14.5); Red Blood Cell (RBC) Count 4.25 mill/uL (4.20-5.40); White Blood Cell (WBC) Count 6.8 thou/uL (4.8-10.8)
[2019-10-01 05:09] LABS: Anion Gap 9 mmol/L (10-20); BUN (Urea Nitrogen) 9 mg/dL (9.8-20.1); Calc. Creatinine Clearance 74 mL/min (70-130); Calcium 8.5 mg/dL (7.8-10.44); Carbon Dioxide 25 mmol/L (23-31); Chloride 109 mmol/L (98-107); Estimated GFR-MDRD Greater than 90; Glucose 75 mg/dL (83-110); Potassium 3.7 mmol/L (3.5-5.1); Sodium 139 mmol/L (136-145)
[2019-10-01] MEDS: Sodium Chloride 0.9% 1,000 ML IV SCH (05:42)
[2019-10-01] MEDS: Aspirin 81 mg Enteric Coated Tablet PO SCH (08:38)
[2019-10-01] MEDS: metFORMIN 500 MG TAB PO SCH ×2 (08:38→20:40)
[2019-10-01] MEDS: Spironolactone 25 MG TAB PO SCH (08:38)
[2019-10-01] MEDS: Oxybutynin 5 MG TAB PO SCH (08:39)
[2019-10-01] MEDS: Enoxaparin Sodium 40 MG/0.4 ML SYRINGE SC SCH (08:39)
[2019-10-01] MEDS: RisperDAL M-TAB 1 MG TAB PO SCH ×2 (08:39→20:40)
[2019-10-01] MEDS: Carbidopa/Levodopa 25-100 mg Tablet PO SCH ×2 (08:39→20:40)
[2019-10-01] MEDS: Furosemide 20 MG TAB PO SCH (08:39)
[2019-10-01] MEDS: Donepezil HCl 5 MG TAB PO SCH (08:39)
[2019-10-01] MEDS: cefTRIAXone\\ROCEPHIN 2 GM in Sodium Chloride 0.9% 100 ML IVPB SCH (10:16)
--- NOTE | 2019-10-01 13:10 | PRG ---
DATE OF SERVICE: 10/01/2019 SUBJECTIVE: The patient is seen and examined at the bedside. She seems to be improving. She is able to talk to me first time since the time of admission. She opens her eyes and communicate with me in limited way. OBJECTIVE: VITAL SIGNS: Blood pressure is 160/68, pulse is 50, respiratory rate is 16, and O2 saturation is 94% on room air. HEENT: Her head is atraumatic and normocephalic. Sclerae are nonicteric. Pupils are responding to light properly. Oral mucosa is moist. NECK: Supple. LUNGS: Clear. HEART: S1 and S2 normal. No S3. No S4. ABDOMEN: Soft and nontender. Bowel sounds are present. EXTREMITIES: No clubbing, cyanosis, or edema. NEUROLOGIC: She is alert and oriented x1 only to place. She is able to follow my commands. She moves her all 4 extremities. She is slow in response. She does not have any tremor. LABORATORY DATA: Labs showed normal CBC. Sodium of 139, potassium 3.7, chloride 109, CO2 of 25, BUN 9, creatinine 0.66. Glycemia is ranging from 78 to 171, calcium is 8.5. Microbiology; 1/2 cultures growing coagulase-negative Staphylococcus, which is most likely contamination. IMPRESSION: 1. Altered mental status with fever, improved. The fever is gone. Her mental status improved. She is able to communicate with me now. 2. Lewy body dementia. 3. Parkinson disease. The patient was seen by Dr. Mesa. He recommends to start her on Sinemet and put the PEG tube in case she does not start eating. 4. Diabetes mellitus type 2, controlled. 5. Fever, unclear etiology. 1/2 cultures on her blood samples are positive for Staphylococcus coagulase negative, which is most likely contamination. 6. History of frequent urinary tract infections with normal UA during this admission. 7. Hypertension. PLAN: Plan to continue her Rocephin at this point. Continue very gentle hydration with fluids at 50 mL/h since she has not been eating for few days. Also, we will continue PT and OT and she agreed to take medications and participate with PT and OT sessions. We will continue her aspirin. We will continue DVT prophylaxis. Job ID: [id number]
[2019-10-02] MEDS: Sodium Chloride 0.9% 1,000 ML IV SCH (00:44)
[2019-10-02 04:24] LABS: #Basophils 0.1 thou/uL (0.0-0.2); #Eosinphils 0.1 thou/uL (0.0-0.7); #Lymphocytes 1.7 thou/uL (1.20-3.40); #Monocytes 0.5 thou/uL (0.11-0.59); #Neutrophils 4.5 thou/uL (1.40-6.50); %Basophils 0.8 % (0.0-1.0); %Eosinophils 1.3 % (0.0-10.0); %Lymphocytes 24.6 % (21.0-51.0); %Monocytes 6.8 % (0.0-10.0); %Neutrophils 66.5 % (42.0-75.0); Hemoglobin 11.8 g/dL (12.0-16.0); Mean Corpuscular HGB CONC 31.8 g/dL (32.0-36.0); Mean Corpuscular Hemoglobin 27.5 pg (27.0-31.0); Mean Corpuscular Volume 86.5 fL (78.0-98.0); Mean Platelet Volume 7.5 fL (7.4-10.4); Platelet Count 232 thou/uL (130-400); RBC Distribution Width 12.5 % (11.5-14.5); Red Blood Cell (RBC) Count 4.29 mill/uL (4.20-5.40); White Blood Cell (WBC) Count 6.7 thou/uL (4.8-10.8)
[2019-10-02 04:40] LABS: Anion Gap 13 mmol/L (10-20); BUN (Urea Nitrogen) 9 mg/dL (9.8-20.1); Calc. Creatinine Clearance 73 mL/min (70-130); Calcium 8.4 mg/dL (7.8-10.44); Carbon Dioxide 21 mmol/L (23-31); Chloride 110 mmol/L (98-107); Estimated GFR-MDRD Greater than 90; Glucose 103 mg/dL (83-110); Potassium 3.7 mmol/L (3.5-5.1); Sodium 140 mmol/L (136-145)
[2019-10-02] MEDS: cefTRIAXone\\ROCEPHIN 2 GM in Sodium Chloride 0.9% 100 ML IVPB SCH (08:55)
[2019-10-02] MEDS: RisperDAL M-TAB 1 MG TAB PO SCH ×2 (09:15→20:19)
[2019-10-02] MEDS: Enoxaparin Sodium 40 MG/0.4 ML SYRINGE SC SCH (09:15)
[2019-10-02] MEDS: Aspirin 81 mg Enteric Coated Tablet PO SCH (09:16)
[2019-10-02] MEDS: metFORMIN 500 MG TAB PO SCH ×2 (09:16→20:18)
[2019-10-02] MEDS: Spironolactone 25 MG TAB PO SCH (09:16)
[2019-10-02] MEDS: Carbidopa/Levodopa 25-100 mg Tablet PO SCH ×2 (09:16→20:19)
[2019-10-02] MEDS: Oxybutynin 5 MG TAB PO SCH (09:16)
[2019-10-02] MEDS: Donepezil HCl 5 MG TAB PO SCH (09:16)
--- NOTE | 2019-10-02 13:16 | PRG ---
DATE OF SERVICE: 10/02/2019 SUBJECTIVE: The patient is seen and examined at the bedside. She looks significantly better, and she feels better. She is able to communicate with me in full sentences. OBJECTIVE: VITAL SIGNS: Blood pressure is 169/72, pulse is 52, respiratory rate is 18, O2 saturation is 94% on room air, and temperature is 98.3. HEENT: Head is atraumatic and normocephalic. Eyes are PERRLA. Sclerae are nonicteric. Conjunctivae are reddish. Oral mucosa is moist. NECK: Supple. LUNGS: Breath sounds diminished at both bases. HEART: S1 and S2 normal. No S3. No S4. ABDOMEN: Soft, nontender, nondistended. EXTREMITIES: No clubbing, cyanosis, or edema. NEUROLOGICAL: She follows my commands. She moves her all 4 extremities. She has some generalized weakness in upper and lower extremities. LABORATORY DATA: Labs showed white count of 6.7, hemoglobin 11.8, hematocrit 37.1, and platelet count is 232,000. Chemistry showed sodium of 140, potassium 3.7, chloride 110, CO2 of 21, BUN 9, and creatinine 0.69. Glycemia is ranging from 108 to 136, calcium is 8.4. Microbiology, no new findings. Still 1/2 blood cultures positive for coagulase-negative Staphylococcus, which is most likely contamination. IMPRESSION: 1. Altered mental status with fever, improved. 2. Lewy body dementia. 3. Parkinson disease. 4. Diabetes mellitus, type 2, controlled. 5. Fever of unclear etiology. 6. History of frequent urinary tract infection with normal UA during this admission. 7. Hypertension. PLAN: The patient will continue on Rocephin. She started eating, and her mental condition improved to the point that she is participating in care. She takes medications, and she does PT and OT. The [facility], and we will continue her aspirin. We will continue her DVT prophylaxis, and we will stop her IV fluids. Job ID: [id number]
[2019-10-03] MEDS: cefTRIAXone\\ROCEPHIN 2 GM in Sodium Chloride 0.9% 100 ML IVPB SCH (08:48)
[2019-10-03] MEDS: Oxybutynin 5 MG TAB PO SCH (08:49)
[2019-10-03] MEDS: Donepezil HCl 5 MG TAB PO SCH (08:49)
[2019-10-03] MEDS: Aspirin 81 mg Enteric Coated Tablet PO SCH (08:49)
[2019-10-03] MEDS: Enoxaparin Sodium 40 MG/0.4 ML SYRINGE SC SCH (08:49)
[2019-10-03] MEDS: RisperDAL M-TAB 1 MG TAB PO SCH ×2 (08:49→20:12)
[2019-10-03] MEDS: metFORMIN 500 MG TAB PO SCH ×2 (08:49→20:13)
[2019-10-03] MEDS: Carbidopa/Levodopa 25-100 mg Tablet PO SCH ×2 (08:49→20:13)
[2019-10-03] MEDS: Spironolactone 25 MG TAB PO SCH (08:49)
--- NOTE | 2019-10-03 11:47 | PRG ---
DATE OF SERVICE: 10/03/2019 SUBJECTIVE: The patient is seen and examined at the bedside. Her is at the bedside feeding her. She is very responsive. She looks good. She is taking her medications, and she is participating in PT sessions. OBJECTIVE: VITAL SIGNS: Blood pressure is 163/68, pulse is 53, temperature is 98.4, respirations 18, O2 saturation is 94% on room air. HEENT: Head is atraumatic and normocephalic. Eyes are PERRLA. Sclerae are nonicteric. Oral mucosa is moist. NECK: Supple. LUNGS: Clear. HEART: S1 and S2 normal. ABDOMEN: Soft, nontender, nondistended. EXTREMITIES: No clubbing, cyanosis, or edema. NEUROLOGIC: She follows my commands. She moves her all 4 extremities, but there is generalized weakness in upper and lower extremities present. There is some dementia and mild tremor of the left upper extremity. LABORATORY DATA: Glycemia is ranging from 93 to 133. Microbiology, nothing new. IMPRESSION: 1. Fever of unclear etiology, resolved. 2. Altered mental status, improved. 3. Lewy body dementia. 4. Parkinson disease. 5. Diabetes mellitus, type 2, controlled. 6. History of frequent urinary tract infection with normal UA during this admission. 7. Hypertension. PLAN: We will stop Rocephin. Switch her to Cipro. She will continue PT and OT. She will continue current regimen, and she will be transferred to care home facility for PT and OT as soon as this is arranged and the bed is available. Job ID: [id number]
[2019-10-03] MEDS: HumaLOG 300 UNITS/3 ML VIAL SC PRN (13:07)
[2019-10-04] MEDS: cefTRIAXone\\ROCEPHIN 2 GM in Sodium Chloride 0.9% 100 ML IVPB SCH (08:45)
[2019-10-04] MEDS: Enoxaparin Sodium 40 MG/0.4 ML SYRINGE SC SCH (08:45)
[2019-10-04] MEDS: Aspirin 81 mg Enteric Coated Tablet PO SCH (08:45)
[2019-10-04] MEDS: metFORMIN 500 MG TAB PO SCH ×2 (08:45→20:04)
[2019-10-04] MEDS: RisperDAL M-TAB 1 MG TAB PO SCH ×2 (08:46→20:04)
[2019-10-04] MEDS: Donepezil HCl 5 MG TAB PO SCH (08:46)
[2019-10-04] MEDS: Spironolactone 25 MG TAB PO SCH (08:46)
[2019-10-04] MEDS: Oxybutynin 5 MG TAB PO SCH (08:46)
[2019-10-04] MEDS: Carbidopa/Levodopa 25-100 mg Tablet PO SCH ×2 (08:46→20:04)
--- NOTE | 2019-10-04 14:20 | PDOC.HOSPP ---
- Subjective Encounter Date: 10/04/19 Encounter Time: 14:15 Subjective: f/u for deconditioning, Parkinson's with dementia awaiting disposition for SNF vs . Received Rocephin for suspected UTI but no cx available. - Objective Vital Signs & Weight: Vital Signs (12 hours) Temp Pulse Resp BP Pulse Ox 10/04/19 08:44 160/68 H 10/04/19 08:15 98.3 F 69 18 189/100 H 96 Weight Admit Weight 138 lb 5 oz Weight 138 lb 5 oz I&O: 10/03/19 10/04/19 10/05/19 06:59 06:59 06:59 Intake Total 3351 500 Output Total 1250 750 Balance 2101 -250 Result Diagrams: 10/02/19 03:50 10/02/19 03:50 Additional Labs: Accuchecks 10/04/19 10/04/19 10/03/19 12:04 05:37 21:01 POC Glucose 89 86 116 H Microbiology 09/29/19 00:58 Venous blood - Left Arm Blood Culture - Final NO GROWTH IN 5 DAYS 09/29/19 00:48 Venous blood - Right Arm Blood Culture - Final Coagulase Neg Staphylococcus Hospitalist ROS - Medication Medications: Active Medications Generic Name Dose Route Start Last Admin Trade Name Freq PRN Reason Stop Dose Admin Acetaminophen 650 mg 09/29/19 00:32 09/30/19 17:27 Tylenol [place] 650 mg Q4H PRN Administration Headache/Fever/Mild Pain (1-3) Aspirin 81 mg 09/30/19 09:00 10/04/19 08:45 Ecotrin PO 81 mg DAILY CARLOS Administration Carbidopa/Levodopa 1 tab 09/29/19 21:00 10/04/19 08:46 Sinemet 25-100 PO 1 tab BID CARLOS Administration Donepezil HCl 5 mg 09/30/19 09:00 10/04/19 08:46 Aricept PO 5 mg DAILY CARLOS Administration Enoxaparin Sodium 40 mg 09/29/19 09:00 10/04/19 08:45 Lovenox SC 40 mg 0900 CARLOS Administration Ceftriaxone Sodium 2 gm/ 100 mls @ 200 mls/hr 09/29/19 09:00 10/04/19 08:45 Sodium Chloride IVPB 100 mls Q24HR CARLOS Administration Insulin Human Lispro 0 units 09/29/19 07:42 10/03/19 13:07 Humalog SC 2 unit .MILD SLIDING SCALE PRN Administration Mild Correctional Scale Memantine 20 mg 09/30/19 09:00 10/04/19 08:46 Namenda PO 20 mg DAILY CARLOS Administration Metformin HCl 500 mg 09/29/19 21:00 10/04/19 08:45 Glucophage PO 500 mg BID CARLOS Administration Oxybutynin Chloride 5 mg 09/30/19 09:00 10/04/19 08:46 Ditropan PO 5 mg DAILY CARLOS Administration Risperidone 1 mg 09/29/19 21:00 10/04/19 08:46 Risperdal M-Tab PO 1 mg BID CARLOS Administration Spironolactone 25 mg 09/30/19 08:00 10/04/19 08:46 Aldactone PO 25 mg QAM-WM CARLOS Administration - Exam General - other findings: lethargic, stares blankly Eye: PERRL, anicteric sclera ENT: normocephalic atraumatic, no oropharyngeal lesions Neck: supple, symmetric, no JVD, no thyromegaly Heart: RRR, no gallops, no rubs, normal peripheral pulses Respiratory: CTAB, no wheezes, no rales, no ronchi Gastrointestinal: soft, non-tender, non-distended, normal bowel sounds Extremities: no cyanosis, no clubbing Skin: normal turgor, no lesions Neurological - other findings: resting tremor, pill rolling Musculoskeletal: generalized weakness Psychiatric: oriented to person, oriented to place, flat affect, lethargic Hosp A/P (1) UTI (urinary tract infection) Status: Acute Plan: Suspected, completed Rocephin course (2) Dementia Code(s): F03.90 - UNSPECIFIED DEMENTIA WITHOUT BEHAVIORAL DISTURBANCE Status: Chronic Qualifiers: Dementia type: Alzheimer's disease Plan: Continue supportive mgmt, re-orientation techniques (3) Parkinson disease Code(s): G20 - PARKINSON'S DISEASE Status: Chronic Plan: Continue Sinemet, PT/OT (4) Physical deconditioning Code(s): R53.81 - OTHER MALAISE Status: Chronic Plan: PT/OT, SNF options pending (5) Hypertension Code(s): I10 - ESSENTIAL (PRIMARY) HYPERTENSION Status: Chronic Qualifiers: Hypertension type: essential hypertension Qualified Code(s): I10 - Essential (primary) hypertension Plan: Labile, resume Amlodipine 5mg daily, serial BP monitoring - Plan PT/OT, social services technician, out of bed/ambulate, DVT proph w/SCDs Stable currently D/C Rocephin Continue Sinemet CM for SNF options Continue Namenda/Aricept
[2019-10-04] MEDS ORDERED: Amlodipine 5 MG TAB PO SCH (14:30)
[2019-10-05] MEDS: Spironolactone 25 MG TAB PO SCH (09:40)
[2019-10-05] MEDS: Amlodipine 5 MG TAB PO SCH (09:40)
[2019-10-05] MEDS: Aspirin 81 mg Enteric Coated Tablet PO SCH (09:40)
[2019-10-05] MEDS: metFORMIN 500 MG TAB PO SCH ×2 (09:41→20:03)
[2019-10-05] MEDS: Enoxaparin Sodium 40 MG/0.4 ML SYRINGE SC SCH (09:41)
[2019-10-05] MEDS: Oxybutynin 5 MG TAB PO SCH (09:41)
[2019-10-05] MEDS: Donepezil HCl 5 MG TAB PO SCH (09:42)
[2019-10-05] MEDS: Carbidopa/Levodopa 25-100 mg Tablet PO SCH ×2 (09:42→20:03)
[2019-10-05] MEDS: RisperDAL M-TAB 1 MG TAB PO SCH ×2 (09:50→20:03)
--- NOTE | 2019-10-05 19:00 | PDOC.HOSPP ---
- Subjective Encounter Date: 10/05/19 Encounter Time: 18:50 Subjective: f/u for UTI tx with Rocephin completing therapy. Advanced Parkinson's on Sinemet. Awaiting SNF options. - Objective Vital Signs & Weight: Vital Signs (12 hours) Temp Pulse Pulse Pulse Resp BP BP 10/05/19 14:14 58 L 62 131/61 10/05/19 09:40 52 L 147/61 H 10/05/19 08:13 97.9 F 52 L 16 10/05/19 08:00 BP BP Pulse Ox 10/05/19 14:14 116/56 L 10/05/19 09:40 10/05/19 08:13 147/61 H 94 L 10/05/19 08:00 94 L Weight Admit Weight 138 lb 5 oz Weight 138 lb 5 oz I&O: 10/04/19 10/05/19 10/06/19 06:59 06:59 06:59 Intake Total 500 650 300 Output Total 750 450 250 Balance -250 200 50 Result Diagrams: 10/02/19 03:50 10/02/19 03:50 Additional Labs: Accuchecks 10/05/19 10/05/19 10/05/19 18:03 11:42 05:46 POC Glucose 119 H 98 92 10/05/19 00:15 POC Glucose 95 Microbiology 09/29/19 00:58 Venous blood - Left Arm Blood Culture - Final NO GROWTH IN 5 DAYS 09/29/19 00:48 Venous blood - Right Arm Blood Culture - Final Coagulase Neg Staphylococcus Hospitalist ROS - Medication Medications: Active Medications Generic Name Dose Route Start Last Admin Trade Name Robbieq PRN Reason Stop Dose Admin Acetaminophen 650 mg 09/29/19 00:32 09/30/19 17:27 Tylenol [place] 650 mg Q4H PRN Administration Headache/Fever/Mild Pain (1-3) Amlodipine Besylate 5 mg 10/05/19 09:00 10/05/19 09:40 Norvasc PO 5 mg DAILY CARLOS Administration Aspirin 81 mg 09/30/19 09:00 10/05/19 09:40 Ecotrin PO 81 mg DAILY CARLOS Administration Carbidopa/Levodopa 1 tab 09/29/19 21:00 10/05/19 09:42 Sinemet 25-100 PO 1 tab BID CARLOS Administration Donepezil HCl 5 mg 09/30/19 09:00 10/05/19 09:42 Aricept PO 5 mg DAILY CARLOS Administration Enoxaparin Sodium 40 mg 09/29/19 09:00 10/05/19 09:41 Lovenox SC 40 mg 0900 CARLOS Administration Insulin Human Lispro 0 units 09/29/19 07:42 10/03/19 13:07 Humalog SC 2 unit .MILD SLIDING SCALE PRN Administration Mild Correctional Scale Memantine 20 mg 09/30/19 09:00 10/05/19 09:41 Namenda PO 20 mg DAILY CARLOS Administration Metformin HCl 500 mg 09/29/19 21:00 10/05/19 09:41 Glucophage PO 500 mg BID CARLOS Administration Oxybutynin Chloride 5 mg 09/30/19 09:00 10/05/19 09:41 Ditropan PO 5 mg DAILY CARLOS Administration Risperidone 1 mg 09/29/19 21:00 10/05/19 09:50 Risperdal M-Tab PO 1 mg BID CARLOS Administration Spironolactone 25 mg 09/30/19 08:00 10/05/19 09:40 Aldactone PO 25 mg QAM-WM CARLOS Administration - Exam General Appearance: NAD Eye: PERRL, anicteric sclera ENT: normocephalic atraumatic, no oropharyngeal lesions Neck: supple, symmetric, no JVD, no thyromegaly Heart: RRR, no gallops, no rubs, normal peripheral pulses Respiratory: CTAB, no wheezes, no rales, no ronchi Gastrointestinal: soft, non-tender, non-distended, normal bowel sounds, no palpable masses Extremities: no cyanosis, no clubbing Skin: normal turgor, no lesions Neurological: no new deficit Neurological - other findings: resting tremor in hands Musculoskeletal: generalized weakness Psychiatric: oriented to person, flat affect, somnolent Hosp A/P (1) UTI (urinary tract infection) Status: Acute Plan: Completed course of Rocephin (2) Dementia Code(s): F03.90 - UNSPECIFIED DEMENTIA WITHOUT BEHAVIORAL DISTURBANCE Status: Chronic Qualifiers: Dementia type: Alzheimer's disease Plan: Continue medical therapy, re-orientation techniques (3) Parkinson disease Code(s): G20 - PARKINSON'S DISEASE Status: Chronic Plan: Continue Sinemet BID (4) Physical deconditioning Code(s): R53.81 - OTHER MALAISE Status: Chronic (5) Hypertension Code(s): I10 - ESSENTIAL (PRIMARY) HYPERTENSION Status: Chronic Qualifiers: Hypertension type: essential hypertension Qualified Code(s): I10 - Essential (primary) hypertension - Plan PT/OT, renal social worker, DVT proph w/SCDs Stable currently D/C Rocephin Continue Sinemet CM for SNF options Continue Namenda/Aricept
[2019-10-06] MEDS: Amlodipine 5 MG TAB PO SCH (08:40)
[2019-10-06] MEDS: Spironolactone 25 MG TAB PO SCH (08:40)
[2019-10-06] MEDS: metFORMIN 500 MG TAB PO SCH ×2 (08:40→20:38)
[2019-10-06] MEDS: Oxybutynin 5 MG TAB PO SCH (08:41)
[2019-10-06] MEDS: Carbidopa/Levodopa 25-100 mg Tablet PO SCH ×2 (08:41→20:38)
[2019-10-06] MEDS: Enoxaparin Sodium 40 MG/0.4 ML SYRINGE SC SCH (08:41)
[2019-10-06] MEDS: Donepezil HCl 5 MG TAB PO SCH (08:42)
[2019-10-06] MEDS: RisperDAL M-TAB 1 MG TAB PO SCH ×2 (08:42→20:38)
[2019-10-06] MEDS: Aspirin 81 mg Enteric Coated Tablet PO SCH (09:05)
--- NOTE | 2019-10-06 17:15 | PDOC.HOSPP ---
- Subjective Encounter Date: 10/06/19 Encounter Time: 16:05 Subjective: f/u for AMS, deconditioning, dementia and Parkinson's dz. Remains weak and frail , needs assistance with eating. - Objective Vital Signs & Weight: Vital Signs (12 hours) Temp Pulse Resp BP Pulse Ox 10/06/19 08:40 60 10/06/19 08:00 98.4 F 60 16 136/61 94 L Weight Admit Weight 138 lb 5 oz Weight 138 lb 5 oz I&O: 10/05/19 10/06/19 10/07/19 06:59 06:59 06:59 Intake Total 650 420 360 Output Total 450 850 Balance 200 -430 360 Result Diagrams: 10/02/19 03:50 10/02/19 03:50 Additional Labs: Accuchecks 10/06/19 10/06/19 10/06/19 16:10 11:16 05:16 POC Glucose 83 139 H 83 10/06/19 10/05/19 01:36 18:03 POC Glucose 87 119 H Microbiology 09/29/19 00:58 Venous blood - Left Arm Blood Culture - Final NO GROWTH IN 5 DAYS 09/29/19 00:48 Venous blood - Right Arm Blood Culture - Final Coagulase Neg Staphylococcus Hospitalist ROS - Medication Medications: Active Medications Generic Name Dose Route Start Last Admin Trade Name Freq PRN Reason Stop Dose Admin Acetaminophen 650 mg 09/29/19 00:32 09/30/19 17:27 Tylenol KS 650 mg Q4H PRN Administration Headache/Fever/Mild Pain (1-3) Amlodipine Besylate 5 mg 10/05/19 09:00 10/06/19 08:40 Norvasc PO 5 mg DAILY CARLOS Administration Carbidopa/Levodopa 1 tab 09/29/19 21:00 10/06/19 08:41 Sinemet 25-100 PO 1 tab BID CARLOS Administration Donepezil HCl 5 mg 09/30/19 09:00 10/06/19 08:42 Aricept PO 5 mg DAILY CARLOS Administration Enoxaparin Sodium 40 mg 09/29/19 09:00 10/06/19 08:41 Lovenox SC 40 mg 0900 CARLOS Administration Insulin Human Lispro 0 units 09/29/19 07:42 10/03/19 13:07 Humalog SC 2 unit .MILD SLIDING SCALE PRN Administration Mild Correctional Scale Memantine 20 mg 09/30/19 09:00 10/06/19 08:41 Namenda PO 20 mg DAILY CARLOS Administration Metformin HCl 500 mg 09/29/19 21:00 10/06/19 08:40 Glucophage PO 500 mg BID CARLOS Administration Oxybutynin Chloride 5 mg 09/30/19 09:00 10/06/19 08:41 Ditropan PO 5 mg DAILY CARLOS Administration Risperidone 1 mg 09/29/19 21:00 10/06/19 08:42 Risperdal M-Tab PO 1 mg BID CARLOS Administration Spironolactone 25 mg 09/30/19 08:00 10/06/19 08:40 Aldactone PO 25 mg QAM-WM CARLOS Administration - Exam General Appearance: NAD, ill appearing General - other findings: opens eyes and speaks one word response Eye: PERRL, anicteric sclera ENT: normocephalic atraumatic, no oropharyngeal lesions Neck: supple, symmetric, no JVD, no thyromegaly Heart: RRR, no gallops, no rubs, normal peripheral pulses Respiratory: CTAB, no wheezes, no rales, no ronchi Gastrointestinal: soft, non-tender, non-distended, normal bowel sounds Extremities: no cyanosis, no clubbing Skin: normal turgor, no lesions Neurological: cranial nerve grossly intact, no new deficit Neurological - other findings: + resting tremors Musculoskeletal: generalized weakness Psychiatric: oriented to person, oriented to place Hosp A/P (1) UTI (urinary tract infection) Status: Acute Plan: Completed therapy with Rocephin (2) Dementia Code(s): F03.90 - UNSPECIFIED DEMENTIA WITHOUT BEHAVIORAL DISTURBANCE Status: Chronic Qualifiers: Dementia type: Alzheimer's disease (3) Parkinson disease Code(s): G20 - PARKINSON'S DISEASE Status: Chronic Plan: Continue Sinemet, fall risk precautions, PT/OT (4) Physical deconditioning Code(s): R53.81 - OTHER MALAISE Status: Chronic Plan: See above, SNF options pending (5) Hypertension Code(s): I10 - ESSENTIAL (PRIMARY) HYPERTENSION Status: Chronic Qualifiers: Hypertension type: essential hypertension Qualified Code(s): I10 - Essential (primary) hypertension - Plan PT/OT, clinical social work therapist, out of bed/ambulate, DVT proph w/SCDs Stable currently D/C Rocephin Continue Sinemet CM for SNF option Continue Namenda/Aricept Likely d/c to [facility] 10/07/19
[2019-10-07 07:13] VITALS: BP 152/67; TEMP 98.3
[2019-10-07] MEDS: RisperDAL M-TAB 1 MG TAB PO SCH (08:40)
[2019-10-07] MEDS: Enoxaparin Sodium 40 MG/0.4 ML SYRINGE SC SCH (08:40)
[2019-10-07] MEDS: Oxybutynin 5 MG TAB PO SCH (08:40)
[2019-10-07] MEDS: metFORMIN 500 MG TAB PO SCH (08:41)
[2019-10-07] MEDS: Spironolactone 25 MG TAB PO SCH (08:42)
[2019-10-07] MEDS: Amlodipine 5 MG TAB PO SCH (08:42)
[2019-10-07] MEDS: Aspirin 81 mg Enteric Coated Tablet PO SCH (08:42)
[2019-10-07] MEDS: Carbidopa/Levodopa 25-100 mg Tablet PO SCH (08:53)
[2019-10-07] MEDS: Donepezil HCl 5 MG TAB PO SCH (08:53)
[2019-10-07] MEDS ORDERED: Magnesium Citrate 300 ML BOT PO SCH (09:15)
--- NOTE | 2019-10-07 13:06 | DIS ---
DATE OF ADMISSION: 09/28/2019 DATE OF DISCHARGE: 10/07/2019 DISCHARGE DIAGNOSES: 1. Urinary tract infection without identified organism, resolved. 2. Advanced dementia, likely Alzheimer's type. 3. Parkinson disease, chronic. 4. Physical deconditioning. 5. Hypertension stable. 6. Diabetes mellitus, type 2, stable. CONSULTATIONS: 1. Dr. Jovani Mesa with Neurology Service. 2. Dr. Ravinder Rodarte with Infectious Disease Service. PERTINENT LABORATORY AND X-RAY FINDINGS: Lactic acid level 1.5. Procalcitonin 0.07. CBC showed white blood cell count ranging between 6.7 to 11.1, hemoglobin ranged between 11.8 to 14.7. Blood cultures x2 dated 09/29/2019, showed 1/2 positive for coagulase-negative Staphylococcus skin contaminant. CT of the brain without contrast dated 09/28/2019, showed no acute intracranial process. Portable chest x-ray dated 09/28/2019, showed atelectasis at lung bases. HOSPITAL COURSE: The patient was initially admitted after presenting with altered mental status and fever with concern for underlying infectious process. The patient with history of recurrent urinary tract infections, initially treated with IV Rocephin, vancomycin, and acyclovir. The patient was initially managed for potential meningitis/encephalitis picture, however, no specific evidence to corroborate this theory. The patient was evaluated by the Infectious Disease Service during her hospital course with recommendations for general supportive management in addition to Rocephin for suspected urinary tract infection. The patient completed IV Rocephin during her hospital course and all antibiotics have since been discontinued. The patient was also initiated on treatment for her Parkinson's disease and given general supportive management including physical therapy. Due to the patient's overall comorbid status and deconditioning with limited mobility, the patient was deemed an appropriate candidate for ongoing half-way care. The patient has been approved to transfer to [facility] [place] on 10/07/2019. I have examined the patient at the time of discharge and discussed followup instructions. The patient verbalized understanding and in agreement and ready for discharge on 10/07/2019. DISCHARGE MEDICATIONS: 1. Amlodipine 5 mg p.o. daily. 2. Metformin 500 mg p.o. b.i.d. 3. Oxybutynin 5 mg p.o. daily. 4. Enteric-coated aspirin 81 mg p.o. daily. 5. Carbidopa/levodopa 25/100 mg one tablet p.o. b.i.d. 6. Aricept 5 mg p.o. daily. 7. Namenda 20 mg p.o. daily. 8. Risperdal 1 mg p.o. b.i.d. 9. Aldactone 25 mg p.o. q.a.m. FOLLOWUP: The patient to follow up with Dr. Lashell Matthews after discharge. The patient may follow up with Dr. Jovani Mesa with Urology Service. CONDITION ON DISCHARGE: Fair. ACTIVITY: Ad danie, rolling walker with contact guard assistance. High fall risk precautions. DIET: ADA. CODE STATUS: Full. DISPOSITION: Discharged to [facility] on 10/07/2019. TIME SPENT: Total time preparing and coordinating discharge is 33 minutes. Job ID: [id number]
== END 2019-10-07 12:44 | DRG 690 ==
LOC: ERS 17:34 → OBSVTOIN 23:47 → ONC 23:47
PROVIDERS: ADMIT Internal Medicine; ATTEND Internal Medicine
DX: N39.0 Urinary tract infection, site not specified (principal); J98.11 Atelectasis; G30.9 Alzheimer's disease, unspecified; F02.80 Dementia in other diseases classified elsewhere, unspecified severity, without behavioral disturbance, psychotic disturbance, mood disturbance, and anxiety; G20 Parkinson's disease; R53.81 Other malaise; I10 Essential (primary) hypertension; E11.9 Type 2 diabetes mellitus without complications; E86.0 Dehydration; G31.83 Neurocognitive disorder with Lewy bodies; Z79.82 Long term (current) use of aspirin; Z79.84 Long term (current) use of oral hypoglycemic drugs; Z88.0 Allergy status to penicillin; Z87.891 Personal history of nicotine dependence
CPT/HCPCS: 36415; 36416; 51701; 70450; 71045; 80048; 80053; 81003; 81015; 83605; 84145; 84484; 85025; 87040; 87149; 93005; J0133; J0696; J1650; J3370; J3490

== ENCOUNTER 2019-12-14 18:11 | Inpatient (IN) | payer MEDICARE, MEDICAID ==
[2019-12-14 19:10] LABS: #Lymphocytes 1.7 thou/uL (1.20-3.40); #Monocytes 0.5 thou/uL (0.11-0.59); #Neutrophils 4.6 thou/uL (1.40-6.50); %Eosinophils 0.2 % (0.0-10.0); %Lymphocytes 25.2 % (21.0-51.0); %Monocytes 7.7 % (0.0-10.0); Hemoglobin 16.3 g/dL (12.0-16.0); Mean Corpuscular HGB CONC 31.1 g/dL (32.0-36.0); Mean Corpuscular Hemoglobin 27.5 pg (27.0-31.0); Mean Corpuscular Volume 88.3 fL (78.0-98.0); Mean Platelet Volume 8.8 fL (7.4-10.4); Platelet Count 173 thou/uL (130-400); RBC Distribution Width 13.4 % (11.5-14.5); Red Blood Cell (RBC) Count 5.95 mill/uL (4.20-5.40); White Blood Cell (WBC) Count 6.9 thou/uL (4.8-10.8)
[2019-12-14 19:23] LABS: ALT (SGPT) 39 U/L (8-55); AST (SGOT) 27 U/L (5-34); Albumin 3.9 g/dL (3.4-4.8); Alkaline Phosphatase 130 U/L (40-110); Anion Gap 19 mmol/L (10-20); BUN (Urea Nitrogen) 33 mg/dL (9.8-20.1); Bilirubin, Total 0.8 mg/dL (0.2-1.2); Calc. Creatinine Clearance 0 mL/min (70-130); Calcium 9.8 mg/dL (7.8-10.44); Carbon Dioxide 26 mmol/L (23-31); Chloride 119 mmol/L (98-107); Estimated GFR-MDRD 84; Globulin 3.7 g/dL (2.4-3.5); Glucose 113 mg/dL (83-110); Potassium 4.5 mmol/L (3.5-5.1); Protein, Total 7.6 g/dL (6.0-8.3); Sodium 159 mmol/L (136-145)
[2019-12-14 20:30] LABS: Bacteria/HPF 4+ HPF (None Seen); Bilirubin Negative (Negative); Blood, Urine Trace (Negative); Clarity Turbid (Clear); Glucose, Urine (Dipstick) Normal (Negative); Leukocyte 500 Leu/uL (Negative); Nitrite Negative (Negative); Protein, Urine (Dipstick) 30 mg/dL (Neg-Trace); RBC/HPF 0-3 HPF (0-3); Squamous Epithelial 0-3 HPF (0-3)
[2019-12-14] MEDS ORDERED: Vancomycin 1 GM/200 ML BAG ONE (21:14)
[2019-12-14] MEDS ORDERED: Ondansetron ODT 4 MG TAB PO PRN (22:48)
[2019-12-14] MEDS ORDERED: Dextrose 50% Abboject 50 ML SYRINGE SLOW IVP PRN (22:48)
[2019-12-14] MEDS ORDERED: HumaLOG 300 UNITS/3 ML VIAL SC PRN ×2 (22:48)
[2019-12-14] MEDS ORDERED: Acetaminophen 325 MG TAB PO PRN (22:48)
[2019-12-14] MEDS ORDERED: Senokot S 8.6-50 MG TAB PO PRN (22:48)
[2019-12-14] MEDS ORDERED: Dextrose 5% in Water 1,000 ML IV PRN (22:48)
[2019-12-14] MEDS ORDERED: Guaifenesin DM 100-10/5 ML UDCUP PO PRN (22:48)
[2019-12-14] MEDS ORDERED: Ondansetron PF 4 MG/2 ML Vial IVP PRN (22:48)
[2019-12-14] MEDS ORDERED: Acetaminophen 650 MG Suppository PR PRN (22:48)
[2019-12-14] MEDS: cefTRIAXone\\ROCEPHIN 2 GM in Sodium Chloride 0.9% 100 ML IVPB SCH (23:26)
[2019-12-14] MEDS: Sodium Chloride 0.9% 1,000 ML IV SCH (23:27)
[2019-12-14] MEDS: Sodium Chloride 0.45% 1,000 ML IV SCH (23:27)
[2019-12-14 23:45] LABS: Lactic Acid 3.2 mmol/L (0.5-2.2)
--- NOTE | 2019-12-15 00:07 | HP ---
PRIMARY CARE PHYSICIAN: Hammad Bailey MD REASON FOR ADMISSION: Hypernatremia and UTI. HISTORY OF PRESENT ILLNESS: This is a 74-year-old female with a history of advanced Parkinson's dementia, nonverbal, who has been a prison resident for the last 3 months since she was admitted here for UTI. The patient reportedly had abnormal labs when she was sent out from the prison, but there was another history included. She was found to be hypernatremic, unknown level at the prison and there was some question about if she had been recently pre-diagnosed with UTI or if her diagnosis was just left over from her previous admission. She is not on any antibiotics. The patient presented to the emergency room and was found to be hypernatremic at 159. She appeared clinically dry, did have evidence of urinary tract infection versus chronic bacteriuria in her urine. No elevated white blood cell count. She did have an elevated lactic acid mildly to 2.5. She was given IV antibiotics and fluids down in the emergency room and is being admitted to the hospital. REVIEW OF SYSTEMS: Unable to obtain secondary to the patient's dementia and altered mental status. PAST MEDICAL HISTORY: All history taken from the chart. 1. Parkinson's with dementia. 2. Hypertension. 3. Diabetes mellitus type 2, on oral hypoglycemics. 4. Frequent UTIs. PAST SURGICAL HISTORY: Previous colonoscopy. SOCIAL HISTORY: The patient currently a resident at [facility]. Previous tobacco user. Smoked cigarettes and quit in the . Rare alcohol intake, none currently. No illicit drug use. FAMILY HISTORY: Unable to obtain secondary to the patient's mental status. ALLERGIES: PENICILLINS, CAN TOLERATE CEPHALOSPORINS. CURRENT MEDICATIONS: 1. Amlodipine 5 mg daily. 2. Aspirin 81 mg daily. 3. Sinemet 1 tablet twice a day. 4. Aricept 5 mg daily. 5. Namenda 20 mg daily. 6. Metformin 500 mg twice a day. 7. Oxybutynin 5 mg daily. 8. Risperdal 1 mg twice a day. 9. Spironolactone 25 mg daily. 10. Enoxaparin 40 mg subcu daily. PHYSICAL EXAMINATION: VITAL SIGNS: Blood pressure 188/75, pulse 79, respirations 18, temperature 100.4, O2 saturation 100% on room air. GENERAL: This is a well-developed, well-nourished white female, who is somnolent, will open her eyes to stimulation, but does not talk or follow commands. HEENT: Pupils are equal, round, and reactive to light. Oropharynx with some dry mucous membranes and excoriated lesion to the left lower lip that has a clotted blood on it. NECK: Supple. No lymphadenopathy. No thyroid nodules or enlargement. HEART: Regular rate and rhythm. No murmurs, rubs, or gallops. LUNGS: Clear to auscultation bilaterally. No wheezes, crackles, or rhonchi. ABDOMEN: Soft. Normoactive bowel sounds. No hepatosplenomegaly or other masses. EXTREMITIES: No clubbing, cyanosis, or edema. She does have some increased warmth and mild increased erythema to the left leg versus the right leg, not cellulitic at all, but just some mildly increased redness and warmth at the right leg compared to the left leg. No tears or lesions noted. The patient is not reactive in pain to palpation of the calf or manipulation of the joints. SKIN: No rashes or lesions noted. NEUROLOGIC: The patient moves minimally, is somnolent, did not appear to have any focal deficits though. LABORATORY DATA: CBC with a white blood cell count 6.9, hemoglobin 16.3, hematocrit 52.5, platelet count 173. Complete metabolic panel is notable for a sodium of 159, chloride of 119, BUN of 33, glucose of 113, alkaline phosphatase of 130. The rest was normal. Lactic acid was 2.5. Urinalysis did show some ketones, trace blood , positive leukocyte esterase, no RBCs, but 11-20 white blood cells, and 4+ bacteria. EKG, I did review the EKG done in the emergency room. It does show normal sinus rhythm with some nonspecific ST and T-wave changes, but no evidence for acute ischemia or arrhythmia. ASSESSMENT: 1. Hypernatremia due to free water deficit. The patient does appear dehydrated on exam, receiving 1 L of lactated Ringer's and 1 L of normal saline in the emergency room. I am going to start her on half-normal saline after that and recheck labs in the morning. This may be due to poor p.o. intake due to progression of her dementia. 2. Urinary tract infection with low-grade fever, but no elevated white blood cell count. She does not currently meet criteria for sepsis. We will treat with Rocephin as she has tolerated that well before and she did get a dose of vancomycin in the emergency room. Cultures are pending and if her cultures grows back mixed sorin, it is likely that she does have some bacteremia from poor bladder emptying. We can reassess the antibiotics at that time. The patient does not have any clinical symptoms or evidence of COVID infection and there was no known COVID infections from her prison, so no indication to send a test at this time. 3. Mild lactic acidosis, likely from volume depletion. We will recheck after fluids. 4. Hypertension. We will resume the patient's home medications. 5. Diabetes mellitus type 2. We will put the patient on low insulin sliding scale. She is not usually on a diabetic diet. We will just monitor blood sugars on a regular diet with low sodium for now. 6. Gastrointestinal prophylaxis. We will put the patient on Pepcid twice a day. 7. Deep venous thrombosis prophylaxis. We will put the patient on Lovenox subcu. 8. Right leg warmth. Will check ultrasound to rule out DVT CODE STATUS: At this point, the patient is a full resuscitation. We will need to identify the patient's medical power of document review attorney. There is some question about this as she is listed as single on her prison chart. There is also listing for her . We will have palliative care workout the medical power of document review attorney tomorrow. Job ID: [id number] MTDD
[2019-12-15 06:32] LABS: #Lymphocytes 1.4 thou/uL (1.20-3.40); #Monocytes 0.5 thou/uL (0.11-0.59); #Neutrophils 4.3 thou/uL (1.40-6.50); %Basophils 0.3 % (0.0-1.0); %Eosinophils 0.5 % (0.0-10.0); %Lymphocytes 22.6 % (21.0-51.0); %Monocytes 7.4 % (0.0-10.0); %Neutrophils 69.1 % (42.0-75.0); Mean Corpuscular HGB CONC 31.1 g/dL (32.0-36.0); Mean Corpuscular Hemoglobin 27.4 pg (27.0-31.0); Platelet Count 172 thou/uL (130-400); RBC Distribution Width 13.2 % (11.5-14.5); White Blood Cell (WBC) Count 6.2 thou/uL (4.8-10.8)
[2019-12-15 06:55] LABS: Anion Gap 12 mmol/L (10-20); BUN (Urea Nitrogen) 25 mg/dL (9.8-20.1); Calc. Creatinine Clearance 63 mL/min (70-130); Carbon Dioxide 27 mmol/L (23-31); Chloride 121 mmol/L (98-107); Estimated GFR-MDRD Greater than 90; Glucose 107 mg/dL (83-110); Potassium 3.5 mmol/L (3.5-5.1); Sodium 156 mmol/L (136-145)
[2019-12-15] MEDS: Sodium Chloride 0.9% 1,000 ML IV SCH (07:44)
--- NOTE | 2019-12-15 07:55 | ULT ---
Exam: Right lower extremity venous ultrasound with Doppler HISTORY: Intermittent erythema. TECHNIQUE: Grayscale, color flow, Doppler imaging and spectral waveform analysis performed the right lower extremity venous system FINDINGS: There is compressibility, presence of flow and augmentation in the common femoral vein, femoral vein and popliteal vein. There is flow and augmentation posterior tibial vein. There is flow in the greater saphenous vein and profunda femoral vein IMPRESSION: No evidence of thrombus in the right lower extremity deep venous system
[2019-12-15] MEDS: Enoxaparin Sodium 40 MG/0.4 ML SYRINGE SC SCH (09:06)
[2019-12-15] MEDS: Sodium Chloride 0.45% 1,000 ML IV SCH (09:06)
--- NOTE | 2019-12-15 10:24 | PDOC.PALFU ---
Palliative Care Follow-up Note Patient has a spouse Dallas Mancilla [phone]. He is currently in dialysis , requested we call back at 3pm.
--- NOTE | 2019-12-15 10:40 | PDOC.PALCO ---
Palliative Care Consult - Consult Details Requesting Physician: Dr Hunter Reason for Consult: advance directives assistance, family support Family Members Present: Spoke with Grover Mancilal over the phone - Pertinent HPI 74 year old female who resides at [facility]. Dependent for all ADL' s, progressing Parkinsons dementia. Recent discharge from hospital, with readmission secondary to UTI. Aphagic, incontinent. - Pertinent PMH Parkinson's dementia, Recurrent UTI, HTN, Diabetes - Social History Smoking Status: Former smoker Smoking: quit greater than 1 year Alcohol Use: none Drug Use History: none Living Situation: , jail resident - Medications MAR Reviewed: Yes - Allergies Allergies/Adverse Reactions: Allergies Allergy/AdvReac Type Severity Reaction Status Date / Time Penicillins Allergy Intermediate Rash Verified 09/29/19 00:38 - Subjective Somnolent, non verbal. Difficult to arouse - ROS Non Response: due to mental status - Objective Vital Signs: Vital Signs - Most Recent Temp Pulse Resp BP Pulse Ox 98.1 F 57 L 16 152/57 H 100 12/15/19 07:58 12/15/19 07:58 12/15/19 07:58 12/15/19 07:58 12/15/19 08:00 Palliative Performance Scale: 30 - Physical Exam Constitutional: encephalitic, ill appearing HEENT: poor dentition Deviation from normal: Dry oral mucous membranes Respiratory: no wheezing, unlabored breathing Cardiovascular: RRR Gastrointestinal: soft, non-tender Genitourinary: sanches catheter Musculoskeletal: no clubbing, diffuse muscle atrophy Neurology: no focal deficits Skin: cap refill <2 seconds, fragile Deviation from normal: Pallor - Problem List (1) Palliative care encounter Code(s): Z51.5 - ENCOUNTER FOR PALLIATIVE CARE Current Visit: Yes Status: Acute (2) UTI (urinary tract infection) Current Visit: No Status: Acute (3) Dementia Code(s): F03.90 - UNSPECIFIED DEMENTIA WITHOUT BEHAVIORAL DISTURBANCE Current Visit: No Status: Chronic Qualifiers: Dementia type: Alzheimer's disease (4) Diabetes type 2, controlled Code(s): E11.9 - TYPE 2 DIABETES MELLITUS WITHOUT COMPLICATIONS Current Visit : No Status: Chronic (5) Parkinson disease Code(s): G20 - PARKINSON'S DISEASE Current Visit: No Status: Chronic (6) Physical deconditioning Code(s): R53.81 - OTHER MALAISE Current Visit: No Status: Chronic - Plan/Recommendations Plan: Assessed patient and reviewed records. Communicated with patient , Dallas Mancilla [phone]. He was in dialysis and requested a return phone call after 3pm. Discuss Goal of Care, if Mrs Savage expressed her wishes and further decisions secondary to decline. Communicated with Dr Kent [] minutes spent on this encounter with >50% of the time in counseling and coordination of care. Thank you for this very appropriate consult.
[2019-12-15] MEDS: metFORMIN 500 MG TAB PO SCH ×2 (10:56→20:04)
[2019-12-15] MEDS: Dextrose 5% in Water 1,000 ML IV SCH ×2 (11:05→23:00)
[2019-12-15 13:12] VITALS: BMI 19.5
[2019-12-15] MEDS: Aspirin 81 mg Enteric Coated Tablet PO SCH (14:24)
[2019-12-15] MEDS: Spironolactone 25 MG TAB PO SCH (14:24)
[2019-12-15] MEDS: Amlodipine 5 MG TAB PO SCH (14:24)
[2019-12-15] MEDS: Donepezil HCl 5 MG TAB PO SCH (14:24)
[2019-12-15] MEDS: Carbidopa/Levodopa 25-100 mg Tablet PO SCH ×2 (14:24→20:04)
[2019-12-15] MEDS: Oxybutynin 5 MG TAB PO SCH (14:25)
[2019-12-15] MEDS: Famotidine 20 MG TAB PO SCH ×2 (14:25→20:04)
[2019-12-15] MEDS: RisperDAL M-TAB 1 MG TAB PO SCH ×2 (14:26→20:04)
--- NOTE | 2019-12-15 15:56 | PDOC.PALFU ---
Palliative Care Follow-up Note Spoke with patient Dallas Mancilla in relation to resuscitation status and goal of care. He is requesting a family meeting via the phone tomorrow. He will communicate time in the morning and we will relay information to Dr Kent.
--- NOTE | 2019-12-15 17:05 | PQF ---
CATRACHITO HONEYCUTT, [facility] [id number] CLINICAL DOCUMENTATION IMPROVEMENT CLARIFICATION FORM: ICD-10 Updated PLEASE DO AN ADDENDUM TO THE PROGRESS NOTE WITH ANY DOCUMENTATION UPDATES OR ADDITIONS AND CARRY THROUGH TO DC SUMMARY. THANK YOU. DATE: 12/15/2019 ATTN: Dr. Kent Please exercise your independent, professional judgment in responding to the clarification form. 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 * H&P 12/13 ([facility]): Physical Examination: Neurologic: The patient moves minimally , is somnolent * Palliative Care Consult 12/14 ([facility]) * care home. Dependent for all ADL's, progressing Parkinson's Dementia ... Aphagic, incontinent * Physical exam: encephalic, ill appearing * Physical deconditioning-chronic * Nursing Assessment 12/13: Musculoskeletal comment- Bedrest with stiffness of extremities * PT Discharge Summary 12/14: Pt was non-verbal and unable to follow commands throughout entire eval * OT Discharge Summary 12/14: ... Pt is requiring total with all aspects of care including basics ADLs and functional mobility/transfers. Pt. appears to be functioning at her baseline level ... RISK FACTORS / RESULTS AND LOCATION IN MR * H&P 12/13 ([facility]): Advanced Parkinsons Dementia, nonverbal, who has been a [facility] for the last 3 months. TREATMENT / RESULTS AND LOCATION IN MR * Consult OT 12/13 ([facility]) * Consult PT 12/13 ([facility] * Consult Speech 12/14 ([facility]) * Ramírez Catheter Order 12/14 ([facility]) * Fall Risk Intervention (High) 12/14: High Fall Risk Intervention Near Nurse Station Patient Safety Alarm Thank you, Irish (This form is maintained as a part of the permanent medical record) 2014 [employer]. All Rights Reserved Irish Griffiths RN, CDS [email or web address] cell phone: [phone] [facility] STATE HOSPITALKarla
--- NOTE | 2019-12-15 17:18 | PDOC.HOSPP ---
- Subjective Encounter Date: 12/15/19 Encounter Time: 12:00 Subjective: The patient is lethargic and not following any commands - Objective Vital Signs & Weight: Vital Signs (12 hours) Temp Pulse Resp BP Pulse Ox 12/15/19 16:26 98.5 F 54 L 16 157/66 H 100 12/15/19 11:50 98.4 F 59 L 16 155/65 H 100 12/15/19 08:00 100 12/15/19 07:58 98.1 F 57 L 16 152/57 H 100 Weight Admit Weight 117 lb 12.8 oz Weight 117 lb 12.8 oz I&O: 12/14/19 12/15/19 12/16/19 06:59 06:59 06:59 Intake Total 800 Output Total 350 800 Balance 450 -800 Result Diagrams: 12/15/19 06:20 12/15/19 06:20 Additional Labs: Accuchecks 12/15/19 12/15/19 12/15/19 16:27 11:59 04:49 POC Glucose 129 H 115 H 117 H Hospitalist ROS - Review of Systems ROS unobtainable: due to mental status Constitutional: denies: fever, chills Respiratory: denies: cough, dry, shortness of breath - Medication Medications: Active Medications Generic Name Dose Route Start Last Admin Trade Name Shay PRN Reason Stop Dose Admin Amlodipine Besylate 5 mg 12/15/19 09:00 12/15/19 14:24 Norvasc PO Not Given DAILY [facility] Aspirin 81 mg 12/15/19 09:00 12/15/19 14:24 Ecotrin PO Not Given DAILY [facility] Carbidopa/Levodopa 1 tab 12/15/19 09:00 12/15/19 14:24 Sinemet 25-100 PO Not Given BID [facility] Donepezil HCl 5 mg 12/15/19 09:00 12/15/19 14:24 Aricept PO Not Given DAILY [facility] Enoxaparin Sodium 40 mg 12/15/19 09:00 12/15/19 09:06 Lovenox SC 40 mg 0900 CARLOS Administration Famotidine 20 mg 12/15/19 09:00 12/15/19 14:25 Pepcid PO Not Given BID [facility] Ceftriaxone Sodium 2 gm/ 100 mls @ 200 mls/hr 12/14/19 22:48 12/14/19 23:26 Sodium Chloride IVPB 100 mls Q24HR CARLOS Administration Dextrose/Water 1,000 mls @ 75 mls/hr 12/15/19 10:15 12/15/19 11:05 D5w IV 1,000 mls .[id number] CARLOS Administration Memantine 20 mg 12/15/19 09:00 12/15/19 14:25 Namenda PO Not Given DAILY CARLOS Metformin HCl 500 mg 12/15/19 09:00 12/15/19 10:56 Glucophage PO Not Given BID CARLOS Oxybutynin Chloride 5 mg 12/15/19 09:00 12/15/19 14:25 Ditropan PO Not Given DAILY CARLOS Risperidone 1 mg 12/15/19 09:00 12/15/19 14:26 Risperdal M-Tab PO Not Given BID CARLOS Spironolactone 25 mg 12/15/19 08:00 12/15/19 14:24 Aldactone PO Not Given QAM-WM CARLOS - Exam General - other findings: patient lethargy, does not follow commands Eye: PERRL, anicteric sclera ENT: normocephalic atraumatic, no oropharyngeal lesions Neck: supple, symmetric, no JVD, no thyromegaly, no lymphadenopathy, no carotid bruit Heart: RRR, no murmur, no gallops, no rubs Respiratory: CTAB, no wheezes, no rales, no ronchi Gastrointestinal: soft, non-tender, non-distended, normal bowel sounds Extremities: no cyanosis, no clubbing, no edema Skin: normal turgor, no lesions, no rashes Neurological: cranial nerve grossly intact, normal sensation to touch, no focal deficits, no new deficit Hosp A/P - Plan Vascular ultrasound: no evidence of thrombus This is a 74 year old male with past medical history of Parkinsons disease, hypertension, diabetes who presented with hypernatremia Acute encephalopathy likely secondary to hypernatremia and UTi - UA showed turbid urine, on IV ceftriaxone, pending urine culture - sodium 156. Will switch to D5W. Repeat BMP #Dehydration #Lactic acidosis - lactic acid 2.6, will repeat Diabetes - continue metformin Hypertension- continue spironolactone and amlodipine Code status: full code
[2019-12-15 18:34] LABS: Anion Gap 13 mmol/L (10-20); BUN (Urea Nitrogen) 19 mg/dL (9.8-20.1); Calc. Creatinine Clearance 61 mL/min (70-130); Calcium 8.9 mg/dL (7.8-10.44); Carbon Dioxide 28 mmol/L (23-31); Chloride 116 mmol/L (98-107); Estimated GFR-MDRD Greater than 90; Glucose 126 mg/dL (83-110); Potassium 3.5 mmol/L (3.5-5.1); Sodium 153 mmol/L (136-145)
[2019-12-15 18:37] LABS: Lactic Acid 2.2 mmol/L (0.5-2.2)
[2019-12-15] MEDS: cefTRIAXone\\ROCEPHIN 2 GM in Sodium Chloride 0.9% 100 ML IVPB SCH (22:58)
[2019-12-16 06:40] LABS: Hemoglobin 12.8 g/dL (12.0-16.0); Mean Corpuscular HGB CONC 31.1 g/dL (32.0-36.0); Mean Corpuscular Hemoglobin 27.8 pg (27.0-31.0); Mean Corpuscular Volume 89.5 fL (78.0-98.0); Mean Platelet Volume 8.6 fL (7.4-10.4); Platelet Count 149 thou/uL (130-400); RBC Distribution Width 13.2 % (11.5-14.5); Red Blood Cell (RBC) Count 4.59 mill/uL (4.20-5.40)
[2019-12-16 06:56] LABS: Anion Gap 9 mmol/L (10-20); BUN (Urea Nitrogen) 13 mg/dL (9.8-20.1); Calc. Creatinine Clearance 61 mL/min (70-130); Calcium 8.7 mg/dL (7.8-10.44); Carbon Dioxide 27 mmol/L (23-31); Chloride 114 mmol/L (98-107); Estimated GFR-MDRD Greater than 90; Glucose 147 mg/dL (83-110); Potassium 3.2 mmol/L (3.5-5.1); Sodium 147 mmol/L (136-145)
[2019-12-16] MEDS: Spironolactone 25 MG TAB PO SCH ×2 (07:27→10:47)
[2019-12-16] MEDS: Amlodipine 5 MG TAB PO SCH ×2 (07:28→10:47)
[2019-12-16] MEDS: Aspirin 81 mg Enteric Coated Tablet PO SCH ×2 (07:28→10:47)
[2019-12-16] MEDS: Donepezil HCl 5 MG TAB PO SCH ×2 (07:28→10:47)
[2019-12-16] MEDS: Carbidopa/Levodopa 25-100 mg Tablet PO SCH ×3 (07:28→22:07)
[2019-12-16] MEDS: Famotidine 20 MG TAB PO SCH ×3 (07:29→22:08)
[2019-12-16] MEDS: RisperDAL M-TAB 1 MG TAB PO SCH ×3 (07:29→22:08)
[2019-12-16] MEDS: metFORMIN 500 MG TAB PO SCH ×3 (07:29→22:08)
[2019-12-16] MEDS: Oxybutynin 5 MG TAB PO SCH ×2 (07:29→10:48)
[2019-12-16] MEDS: Enoxaparin Sodium 40 MG/0.4 ML SYRINGE SC SCH (08:18)
[2019-12-16] MEDS ORDERED: Potassium Chloride 20 MEQ TAB PO SCH (09:15)
--- NOTE | 2019-12-16 10:02 | PDOC.PALPN ---
Palliative Progress Note - Subjective Awake, soft verbal response, confused. Verbal response was 1-3 words. "Fidgety " with hands, would not follow commands during assessment. Intermittent purposeful gaze. - Objective Vital Signs: Vital Signs - Most Recent Temp Pulse Resp BP Pulse Ox 98.4 F 51 L 16 177/72 H 100 12/16/19 07:44 12/16/19 07:44 12/16/19 07:44 12/16/19 07:44 12/16/19 08:10 - Physical Exam Constitutional: NAD, confusion, ill appearing HEENT: EOMI, sclera anicteric Respiratory: no wheezing, unlabored breathing Cardiovascular: RRR Gastrointestinal: soft, non-tender, incontinent Genitourinary: sanches catheter Musculoskeletal: no cyanosis, pulses present, diffuse muscle atrophy Neurology: moves all 4 limbs Skin: cap refill <2 seconds, bruising, fragile Deviation from normal: Wounds to sacrum Psychiatric: flat affect Deviation from normal: Unable to determine orientation - Assessment (1) Palliative care encounter Code(s): Z51.5 - ENCOUNTER FOR PALLIATIVE CARE Current Visit: Yes Status: Acute (2) UTI (urinary tract infection) Current Visit: No Status: Acute (3) Dementia Code(s): F03.90 - UNSPECIFIED DEMENTIA WITHOUT BEHAVIORAL DISTURBANCE Current Visit: No Status: Chronic Qualifiers: Dementia type: Alzheimer's disease (4) Diabetes type 2, controlled Code(s): E11.9 - TYPE 2 DIABETES MELLITUS WITHOUT COMPLICATIONS Current Visit : No Status: Chronic (5) Parkinson disease Code(s): G20 - PARKINSON'S DISEASE Current Visit: No Status: Chronic (6) Physical deconditioning Code(s): R53.81 - OTHER MALAISE Current Visit: No Status: Chronic - Plan Plan: Reviewed records, assessed patient. Lengthy discussion with patient and daughter. Addressed disease process and trajectory. Discussed decline and Goal of Care. Daughter states her mom is a "fighter" and "feisty". Initiated conversation in relation to resuscitation status. Family asked several questions. Therapeutic listening and emotional support offered. Suggested "Laminated pictures for patient on a plastic ring for cognitive engagement as well as Ipod with her favorite music. Provided information on "Music Memory" resource. *Continue with all aggressive measures *Requesting CM call Mr Mancilla (patient ) at discharge. *Spiritual Care consult Notified BRII and Dr Kent Palliative care will sign off as MPOA and resuscitation status addressed as well as discussion in relation to disease processes and trajectory toward continued decline. [60] minutes spent on this encounter with >50% of the time in counseling and coordination of care. - ROS Non Response: due to mental status
--- NOTE | 2019-12-16 11:17 | PDOC.HOSPP ---
- Subjective Encounter Date: 12/16/19 Encounter Time: 11:15 Subjective: the patient is sitting up in bed. She doesn't follow commands. She is more alert. Per speech can advance to pureed diet. - Objective Vital Signs & Weight: Vital Signs (12 hours) Temp Pulse Resp BP BP Pulse Ox 12/16/19 08:10 100 12/16/19 07:44 98.4 F 51 L 16 177/72 H 100 12/16/19 05:00 98.5 F 100 20 173/82 H 100 12/16/19 03:13 100 12/15/19 23:27 97.5 F L 76 20 156/81 H 100 Weight Admit Weight 117 lb 12.8 oz Weight 117 lb 12.8 oz I&O: 12/15/19 12/16/19 12/17/19 06:59 06:59 06:59 Intake Total 800 1825 Output Total 350 1200 Balance 450 625 Result Diagrams: 12/16/19 06:28 12/16/19 06:28 Additional Labs: Accuchecks 12/16/19 12/15/19 12/15/19 05:22 20:09 16:27 POC Glucose 139 H 145 H 129 H 12/15/19 11:59 POC Glucose 115 H Hospitalist ROS - Review of Systems Constitutional: reports: fever. denies: chills - Medication Medications: Active Medications Generic Name Dose Route Start Last Admin Trade Name Freq PRN Reason Stop Dose Admin Amlodipine Besylate 5 mg 12/15/19 09:00 12/16/19 10:47 Norvasc PO 5 mg DAILY CARLOS Administration Aspirin 81 mg 12/15/19 09:00 12/16/19 10:47 Ecotrin PO 81 mg DAILY CARLOS Administration Carbidopa/Levodopa 1 tab 12/15/19 09:00 12/16/19 10:46 Sinemet 25-100 PO 1 tab BID CARLOS Administration Donepezil HCl 5 mg 12/15/19 09:00 12/16/19 10:47 Aricept PO 5 mg DAILY CARLOS Administration Enoxaparin Sodium 40 mg 12/15/19 09:00 12/16/19 08:18 Lovenox SC 40 mg 0900 CARLOS Administration Famotidine 20 mg 12/15/19 09:00 12/16/19 10:46 Pepcid PO 20 mg BID CARLOS Administration Ceftriaxone Sodium 2 gm/ 100 mls @ 200 mls/hr 12/14/19 22:48 12/15/19 22:58 Sodium Chloride IVPB 100 mls Q24HR CARLOS Administration Dextrose/Water 1,000 mls @ 75 mls/hr 12/15/19 10:15 12/15/19 23:00 D5w IV 1,000 mls .[id number] CARLOS Administration Memantine 20 mg 12/15/19 09:00 12/16/19 10:46 Namenda PO 20 mg DAILY CARLOS Administration Metformin HCl 500 mg 12/15/19 09:00 12/16/19 10:47 Glucophage PO 500 mg BID CARLOS Administration Oxybutynin Chloride 5 mg 12/15/19 09:00 12/16/19 10:48 Ditropan PO 5 mg DAILY CARLOS Administration Risperidone 1 mg 12/15/19 09:00 12/16/19 10:47 Risperdal M-Tab PO 1 mg BID CARLOS Administration Spironolactone 25 mg 12/15/19 08:00 12/16/19 10:47 Aldactone PO 25 mg QAM-WM CARLOS Administration - Exam General Appearance: NAD (nonverbal) General - other findings: alopecia Eye: PERRL, anicteric sclera ENT: normocephalic atraumatic, no oropharyngeal lesions ENT - other findings: dry lips Neck: no JVD Heart: RRR, no murmur, no gallops, no rubs Respiratory: CTAB, no wheezes, no rales, no ronchi Gastrointestinal: soft, non-tender, non-distended Extremities: no cyanosis, no clubbing, no edema Hosp A/P - Plan Vascular ultrasound: no evidence of thrombus This is a 74 year old male with past medical history of Parkinsons disease, hypertension, diabetes who presented with hypernatremia Acute encephalopathy likely secondary to hypernatremia and UTi - UA showed turbid urine, on IV ceftriaxone, urine culture showed no growth however still suspicious of UTI - will switch to oral cefdinir - sodium down to 147, will discontinue fluids - speech consulted, advance to puree nectar thick diet Hypokalemia - potassium 3.2, will replace #Dehydration #Lactic acidosis - lactic acidosis resolved - discontinue fluids Diabetes - continue metformin Hypertension- continue spironolactone and amlodipine Code status: full code
[2019-12-16] MEDS ORDERED: Cefdinir 300 MG CAP PO SCH (11:30)
[2019-12-16] MEDS: Cefdinir 300 MG CAP PO SCH (22:08)
[2019-12-17 06:21] LABS: Hemoglobin 13.1 g/dL (12.0-16.0); Mean Corpuscular HGB CONC 31.3 g/dL (32.0-36.0); Mean Corpuscular Hemoglobin 27.7 pg (27.0-31.0); Mean Corpuscular Volume 88.6 fL (78.0-98.0); Mean Platelet Volume 9.3 fL (7.4-10.4); Platelet Count 155 thou/uL (130-400); Red Blood Cell (RBC) Count 4.72 mill/uL (4.20-5.40); White Blood Cell (WBC) Count 6.5 thou/uL (4.8-10.8)
[2019-12-17 06:37] LABS: Anion Gap 13 mmol/L (10-20); BUN (Urea Nitrogen) 11 mg/dL (9.8-20.1); Calc. Creatinine Clearance 64 mL/min (70-130); Calcium 8.7 mg/dL (7.8-10.44); Carbon Dioxide 21 mmol/L (23-31); Chloride 116 mmol/L (98-107); Estimated GFR-MDRD Greater than 90; Glucose 87 mg/dL (83-110); Potassium 3.7 mmol/L (3.5-5.1); Sodium 146 mmol/L (136-145)
[2019-12-17] MEDS: Famotidine 20 MG TAB PO SCH ×2 (08:43→21:24)
[2019-12-17] MEDS: Aspirin 81 mg Enteric Coated Tablet PO SCH (08:43)
[2019-12-17] MEDS: Amlodipine 5 MG TAB PO SCH (08:43)
[2019-12-17] MEDS: Cefdinir 300 MG CAP PO SCH ×2 (08:43→21:24)
[2019-12-17] MEDS: Donepezil HCl 5 MG TAB PO SCH (08:43)
[2019-12-17] MEDS: Enoxaparin Sodium 40 MG/0.4 ML SYRINGE SC SCH (08:43)
[2019-12-17] MEDS: Oxybutynin 5 MG TAB PO SCH (08:44)
[2019-12-17] MEDS: Spironolactone 25 MG TAB PO SCH (08:44)
[2019-12-17] MEDS: metFORMIN 500 MG TAB PO SCH ×2 (08:44→21:25)
[2019-12-17] MEDS: RisperDAL M-TAB 1 MG TAB PO SCH ×2 (08:44→21:25)
[2019-12-17] MEDS: Carbidopa/Levodopa 25-100 mg Tablet PO SCH ×2 (08:44→21:25)
--- NOTE | 2019-12-17 10:24 | PQF ---
CATRACHITO HONEYCUTT, [facility] [id number] T4-A- [id number] CLINICAL DOCUMENTATION IMPROVEMENT CLARIFICATION FORM: ICD-10 Updated PLEASE DO AN ADDENDUM TO THE PROGRESS NOTE WITH ANY DOCUMENTATION UPDATES OR ADDITIONS AND CARRY THROUGH TO DC SUMMARY. THANK YOU. DATE: 12/17/2019 ATTN: Dr. Kent Please exercise your independent, professional judgment in responding to the clarification form. Clinical indicators are provided on the bottom of this form for your review Please check appropriate box(s): Acute Encephalopathy: Etiology: [X ] Metabolic [ ] Toxic [ ] Hypertensive [ ] Unspecified [ ] In the setting of underlying dementia [ ] Other (please specify) [ ] Other diagnosis [ ] Unable to determine In addition, please specify: Present on Admission (POA): [ ] Yes [ ] No [ ] Unable to determine For continuity of documentation, please document condition throughout progress notes and discharge summary. Thank You. CLINICAL INDICATORS - SIGNS / SYMPTOMS / LABS / RESULTS AND LOCATION IN EMR *ED 12/13: - Patient presents to the ED with altered mental status and severe intravascular volume depletion causing significant hypernatremia. - Vital Signs: BP 172/112 - 188/75 Tmax 100.4(R) *H&P 12/13 (Dale): - Review of Systems: Unable to obtain secondary to the patient's dementia and altered mental status - Somnolent, will open her eyes to stimulation, but does not talk or follow commands. - Hypernatremia due to free water deficit. - Urinary tract infection with low-grade fever - Mild lactic acidosis, likely from volume depletion. - Hypertension *PN 12/14 (Donte): The patient is lethargic and not following any commands ... Acute encephalopathy likely secondary to hypernatremia and UTI. *PN 12/15 (Donte): The patient is sitting up in bed ... She doesn't follow commands. She is more alert. Per speech can advance to pureed diet. RISK FACTORS / RESULTS AND LOCATION IN EMR *H&P 12/13 (Dale): - Past Medical history: Parkinson's with dementia ... Hypertension ... Frequent UTIs - Urinary tract infection with low-grade fever TREATMENTS / RESULTS AND LOCATION IN EMR *ED 12/13: NS IV IL, Lactated Ringers IV 1L, Vancomycin IV *Microbiology: Urine Culture 12/13 *H&P 12/13 (Dale): - I am going to start her on half-normal saline ... recheck labs in the morning. - We will treat with Rocephin ... - Hypertension. We will resume the patient's home medications. *PN 12/15 (Donte): Will switch to oral cefdinir Thank you, Irish (This form is maintained as a part of the permanent medical record) 2015 [employer]. All Rights Reserved Irish Griffiths RN, CDS [email or web address] cell phone: [facility]
--- NOTE | 2019-12-17 10:50 | PQF ---
CATRACHITO HONEYCUTT, [facility] [id number] T4-A- 4406 [id number] CLINICAL DOCUMENTATION IMPROVEMENT CLARIFICATION FORM: ICD-10 Updated PLEASE DO AN ADDENDUM TO THE PROGRESS NOTE WITH ANY DOCUMENTATION UPDATES OR ADDITIONS AND CARRY THROUGH TO DC SUMMARY. THANK YOU. Date: 12/17/2019 ATTN: Dr. Kent Please exercise your independent, professional judgment in responding to the clarification form. Clinical indicators are provided on the bottom of this form for your review Please check appropriate box(s): [ ] Protein Calorie Malnutrition: [ ] Mild [ ] Moderate [ ] Severe [ ] Other Malnutrition (please specify) __ [ ] Underweight without malnutrition [ ] Cachexia [ ] Other diagnosis [ ] Unable to determine In addition, please specify: Present on Admission (POA): [ ] Yes [ ] No [ ] Unable to determine CLINICAL INDICATORS - SIGNS / SYMPTOMS / LABS / RESULTS AND LOCATION IN MR *Palliative Care Consult 12/14 (Gonzalo): - Physical Exam: Musculoskeletal: Diffuse muscle atrophy *Speech Therapy Assessment 12/14: - Expressive Language Summary Comments: Pt was not able to expressively communicate ... will require total care at this time. - Functional Impairment: Swallowing Severe Functional Impairment *Food and Nutrition Services Assessment 12/14: - BMI 19.5 - Malnutrition: Related to dementia, potentially dysphagia/poor dentition - -15% wt loss x~3 months per EMR; mild to moderate temporalis muscle wasting suggesting severe malnutrition in the context of chronic disease RISK FACTORS / RESULTS AND LOCATION IN MR *H&P 12/13 (Dale): - Advanced Parkinson's Dementia - Hypernatremia ... This may be due to poor p.o. intake due to progression of her dementia. TREATMENT / RESULTS AND LOCATION IN MR *Speech Consult 12/14 *Food and Nutrition Services Assessment 12/14 *PN 12/15 (Donte): Per Speech can advance to pureed diet. *Nutrition Orders: 12/16 Regular Diet-diet w/ risk of admiration 12/16 Supplement: Glucerna Shake PRN, Supplement: Mighty Shake TID with meals Thank you, Irish Moderate Malnutrition (in acute illness) Energy Intake: <75% of estimated energy requirement for > 7 days Weight Loss: 1-2%/1 week; 5%/ 1 month; 7.5%/3 months Other: mild body fat loss; mild muscle mass loss; mild fluid accumulation; Severe Malnutrition (in acute illness) Energy Intake: < 50% of estimated energy requirement for > 5 days Weight Loss: >1-2%/1 week; >5%/1 month; >7.5%/3 months Other: moderate body fat loss; moderate muscle mass loss; moderate- severe fluid accumulation; measurably reduced carton inspector strength Moderate Malnutrition (in chronic illness) Energy Intake: <75% of estimated energy requirement for >1 month Weight Loss: 5%/1 month; 7.5%/3 months; 10%/6 months; 20%/1 year Other: mild body fat loss; mild muscle mass loss; mild fluid accumulation Severe Malnutrition (in chronic illness) Energy Intake: <75% of estimated energy requirement for >1 month Weight Loss: >5%/1 month; >7.5%/3 months; >10%/6 months; >20%/1 year Other: severe body fat loss; severe muscle mass loss; severe fluid accumulation ; measurably reduced carton inspector strength (This form is maintained as a part of the permanent medical record) 2014 [employer]. All Rights Reserved Irish Griffiths RN, VI [email or web address] cell phone: [email or web address]
--- NOTE | 2019-12-17 17:11 | PDOC.HOSPP ---
- Subjective Encounter Date: 12/17/19 Encounter Time: 11:00 Subjective: patient is sitting up in bed . she is refusing to eat per nursing staff . i discussed with the son they would like to proceed with feeding tube placement . i did discuss this would not prolong life - Objective Vital Signs & Weight: Vital Signs (12 hours) Temp Pulse Resp BP BP Pulse Ox 12/17/19 11:00 97.9 F 66 18 115/64 97 12/17/19 08:00 98 12/17/19 07:26 97.5 F L 53 L 18 146/59 H 98 Weight Admit Weight 117 lb 12.8 oz Weight 117 lb 12.8 oz I&O: 12/16/19 12/17/19 12/18/19 06:59 06:59 06:59 Intake Total 1825 420 120 Output Total 1200 450 Balance 625 -30 120 Result Diagrams: 12/17/19 06:12 12/18/19 14:00 Additional Labs: Accuchecks 12/17/19 12/17/19 12/16/19 11:24 04:37 19:47 POC Glucose 97 88 97 12/16/19 16:37 POC Glucose 80 Hospitalist ROS - Review of Systems ROS unobtainable: due to mental status - Medication Medications: Active Medications Generic Name Dose Route Start Last Admin Trade Name Shay PRN Reason Stop Dose Admin Amlodipine Besylate 5 mg 12/15/19 09:00 12/17/19 08:43 Norvasc PO 5 mg DAILY CARLOS Administration Aspirin 81 mg 12/15/19 09:00 12/17/19 08:43 Ecotrin PO 81 mg DAILY CARLOS Administration Carbidopa/Levodopa 1 tab 12/15/19 09:00 12/17/19 08:44 Sinemet 25-100 PO 1 tab BID CARLOS Administration Cefdinir 300 mg 12/16/19 21:00 12/17/19 08:43 Omnicef PO 300 mg BID CARLOS Administration Donepezil HCl 5 mg 12/15/19 09:00 12/17/19 08:43 Aricept PO 5 mg DAILY CARLOS Administration Enoxaparin Sodium 40 mg 12/15/19 09:00 12/17/19 08:43 Lovenox SC 40 mg 0900 CARLOS Administration Famotidine 20 mg 12/15/19 09:00 12/17/19 08:43 Pepcid PO 20 mg BID CARLOS Administration Memantine 20 mg 12/15/19 09:00 12/17/19 08:44 Namenda PO 20 mg DAILY CARLOS Administration Metformin HCl 500 mg 12/15/19 09:00 12/17/19 08:44 Glucophage PO 500 mg BID CARLOS Administration Oxybutynin Chloride 5 mg 12/15/19 09:00 12/17/19 08:44 Ditropan PO 5 mg DAILY CARLOS Administration Risperidone 1 mg 12/15/19 09:00 12/17/19 08:44 Risperdal M-Tab PO 1 mg BID CARLOS Administration Spironolactone 25 mg 12/15/19 08:00 12/17/19 08:44 Aldactone PO 25 mg QAM-WM CARLOS Administration - Exam General Appearance: NAD, awake alert General - other findings: nonverbal Eye: PERRL, anicteric sclera ENT: normocephalic atraumatic, no oropharyngeal lesions Neck: no JVD Heart: RRR, no murmur, no gallops, no rubs Respiratory: CTAB, no wheezes, no rales, no ronchi Gastrointestinal: soft, non-tender, non-distended, normal bowel sounds Extremities: no cyanosis, no clubbing, no edema Skin: normal turgor, no lesions, no rashes Neurological: cranial nerve grossly intact, normal sensation to touch, no focal deficits, no new deficit Hosp A/P - Plan Vascular ultrasound: no evidence of thrombus This is a 74 year old male with past medical history of Parkinsons disease, hypertension, diabetes who presented with hypernatremia Acute encephalopathy secondary to hypernatremia and UTi - UA showed turbid urine, on IV ceftriaxone, urine culture showed Pseudomonas and lactobacillus - continue oral cefdinir. Await urine sensitivities. She has no fever or WBC - spoke to family about patient not willing to eat and they wanted to proceed with feeding tube - will trial another day of ensure shakes and pureed diet. Consider NG feeds tomorrow if no improvement Hypokalemia - resolved #Dehydration #Lactic acidosis - lactic acidosis resolved - discontinue fluids Diabetes - continue metformin Hypertension- continue spironolactone and amlodipine Code status: full code
[2019-12-18] MEDS: Amlodipine 5 MG TAB PO SCH (09:00)
[2019-12-18] MEDS: Spironolactone 25 MG TAB PO SCH (09:00)
[2019-12-18] MEDS: Aspirin 81 mg Enteric Coated Tablet PO SCH (09:00)
[2019-12-18] MEDS: Enoxaparin Sodium 40 MG/0.4 ML SYRINGE SC SCH (09:01)
[2019-12-18] MEDS: Cefdinir 300 MG CAP PO SCH ×2 (09:01→21:34)
[2019-12-18] MEDS: Donepezil HCl 5 MG TAB PO SCH (09:01)
[2019-12-18] MEDS: RisperDAL M-TAB 1 MG TAB PO SCH ×2 (09:01→21:35)
[2019-12-18] MEDS: metFORMIN 500 MG TAB PO SCH ×2 (09:01→21:34)
[2019-12-18] MEDS: Famotidine 20 MG TAB PO SCH ×2 (09:01→21:34)
[2019-12-18] MEDS: Oxybutynin 5 MG TAB PO SCH (09:01)
[2019-12-18] MEDS: Carbidopa/Levodopa 25-100 mg Tablet PO SCH ×2 (09:01→21:34)
[2019-12-18] MEDS ORDERED: RisperDAL M-TAB 1 MG TAB PO SCH (14:15)
[2019-12-18 14:42] LABS: Anion Gap 19 mmol/L (10-20); Calcium 8.9 mg/dL (7.8-10.44); Carbon Dioxide 16 mmol/L (23-31); Chloride 114 mmol/L (98-107); Potassium 3.6 mmol/L (3.5-5.1); Sodium 145 mmol/L (136-145)
--- NOTE | 2019-12-18 15:48 | PDOC.HOSPP ---
- Subjective Subjective: Seen and examined. Patient lethargic, did not eat much or drink much per nursing staff. Case was discussed with RN, recommendations appreciated. She has been somnolent for days. My will decrease her Risperdal. Encourage oral intake. If we cannot wake her up and have adequate oral intake the family state that they are open to a feeding tube. Palliative care has been involved in the patient's family wishes full and aggressive measures including feeding tubes and intubation if needed. Sodium correcting nicely, high end of normal now. - Objective Vital Signs & Weight: Vital Signs (12 hours) Temp Pulse Resp BP BP Pulse Ox 12/18/19 11:30 97.9 F 56 L 20 115/64 99 12/18/19 09:00 49 L 160/77 H 98 12/18/19 07:18 98.4 F 49 L 18 167/77 H 98 Weight Admit Weight 117 lb 12.8 oz Weight 117 lb 12.8 oz I&O: 12/17/19 12/18/19 12/19/19 06:59 06:59 06:59 Intake Total 420 120 180 Output Total 450 50 Balance -30 70 180 Result Diagrams: 12/17/19 06:12 12/18/19 14:00 Additional Labs: Accuchecks 12/18/19 12/18/19 12/17/19 11:21 04:08 19:18 POC Glucose 101 83 93 12/17/19 17:06 POC Glucose 105 Radiology Reviewed by me: Yes Hospitalist ROS - Review of Systems All other systems reviewed; all pertinent +/- noted in HPI/Subj - Medication Medications: Active Medications Generic Name Dose Route Start Last Admin Trade Name Shay PRN Reason Stop Dose Admin Amlodipine Besylate 5 mg 12/15/19 09:00 12/18/19 09:00 Norvasc PO 5 mg DAILY CARLOS Administration Aspirin 81 mg 12/15/19 09:00 12/18/19 09:00 Ecotrin PO 81 mg DAILY CARLOS Administration Carbidopa/Levodopa 1 tab 12/15/19 09:00 12/18/19 09:01 Sinemet 25-100 PO 1 tab BID CARLOS Administration Cefdinir 300 mg 12/16/19 21:00 12/18/19 09:01 Omnicef PO 300 mg BID CARLOS Administration Donepezil HCl 5 mg 12/15/19 09:00 12/18/19 09:01 Aricept PO 5 mg DAILY CARLOS Administration Enoxaparin Sodium 40 mg 12/15/19 09:00 12/18/19 09:01 Lovenox SC 40 mg 09 CARLOS Administration Famotidine 20 mg 12/15/19 09:00 12/18/19 09:01 Pepcid PO 20 mg BID CARLOS Administration Memantine 20 mg 12/15/19 09:00 12/18/19 09:01 Namenda PO 20 mg DAILY CARLOS Administration Metformin HCl 500 mg 12/15/19 09:00 12/18/19 09:01 Glucophage PO 500 mg BID CARLOS Administration Oxybutynin Chloride 5 mg 12/15/19 09:00 12/18/19 09:01 Ditropan PO 5 mg DAILY CARLOS Administration Spironolactone 25 mg 12/15/19 08:00 12/18/19 09:00 Aldactone PO 25 mg QAM-WM CARLOS Administration - Exam General Appearance: NAD Eye: PERRL, anicteric sclera ENT: normocephalic atraumatic, moist mucosa Neck: supple, symmetric, no lymphadenopathy Heart: no murmur, no gallops, no rubs Respiratory: CTAB, no wheezes, no rales, no ronchi, normal chest expansion Gastrointestinal: soft, non-tender, no guarding, no rigidity Extremities: no edema Skin: no lesions, no rashes Neurological: cranial nerve grossly intact, no focal deficits Neurological - other findings: Withdraws from noxious stimuli in all extremities. Makes new words Musculoskeletal: generalized weakness Psychiatric: flat affect, lethargic Hosp A/P (1) UTI (urinary tract infection) Status: Acute (2) Anxiety and depression Code(s): F41.8 - OTHER SPECIFIED ANXIETY DISORDERS Status: Chronic (3) Dementia Code(s): F03.90 - UNSPECIFIED DEMENTIA WITHOUT BEHAVIORAL DISTURBANCE Status: Chronic Qualifiers: Dementia type: Alzheimer's disease (4) Diabetes type 2, controlled Code(s): E11.9 - TYPE 2 DIABETES MELLITUS WITHOUT COMPLICATIONS Status: Chronic (5) Hypertension Code(s): I10 - ESSENTIAL (PRIMARY) HYPERTENSION Status: Chronic Qualifiers: Hypertension type: essential hypertension Qualified Code(s): I10 - Essential (primary) hypertension (6) Parkinson disease Code(s): G20 - PARKINSON'S DISEASE Status: Chronic (7) Physical deconditioning Code(s): R53.81 - OTHER MALAISE Status: Chronic (8) Hypernatremia Code(s): E87.0 - HYPEROSMOLALITY AND HYPERNATREMIA Status: Acute (9) AMS (altered mental status) Code(s): R41.82 - ALTERED MENTAL STATUS, UNSPECIFIED Status: Acute - Plan Plan: medical unit patient admitted with altered mental status which was partially contributed to hypernatremia, which has been correcting nicely sodium is now at the high end of normal continue to restrict free water intake will decrease Risperdal to 0.5 mg b.i.d., Will try to wake her up An accurate calorie count would be helpfull encourage oral intake nutritional supplements dietary consultation, recommendations appreciated continue other home medications is able blood pressure control blood sugar control G.I. prophylaxis DVT prophylaxis
[2019-12-18 22:24] LABS: BUN (Urea Nitrogen) 14 mg/dL (9.8-20.1); Calc. Creatinine Clearance 66 mL/min (70-130); Estimated GFR-MDRD Greater than 90; Glucose 104 mg/dL (83-110)
[2019-12-19] MEDS: RisperDAL M-TAB 1 MG TAB PO SCH ×2 (08:52→21:14)
[2019-12-19] MEDS: metFORMIN 500 MG TAB PO SCH ×2 (08:54→21:15)
[2019-12-19] MEDS: Cefdinir 300 MG CAP PO SCH ×2 (08:54→21:15)
[2019-12-19] MEDS: Donepezil HCl 5 MG TAB PO SCH (08:54)
[2019-12-19] MEDS: Oxybutynin 5 MG TAB PO SCH (08:55)
[2019-12-19] MEDS: Carbidopa/Levodopa 25-100 mg Tablet PO SCH ×2 (08:55→21:14)
[2019-12-19] MEDS: Famotidine 20 MG TAB PO SCH ×2 (08:55→21:14)
[2019-12-19] MEDS: Aspirin 81 mg Enteric Coated Tablet PO SCH (08:55)
[2019-12-19] MEDS: Spironolactone 25 MG TAB PO SCH (08:55)
[2019-12-19] MEDS: Enoxaparin Sodium 40 MG/0.4 ML SYRINGE SC SCH (08:56)
[2019-12-19] MEDS: Amlodipine 5 MG TAB PO SCH (09:04)
--- NOTE | 2019-12-19 11:55 | PDOC.HOSPP ---
- Subjective Subjective: Seen and examined. More awake and alert. Eyes open and will track around the room. Makes no words. She is having some spontaneous uncontrolled movements on the right side of her body. Masked face without expression. Flat affect. - Objective Vital Signs & Weight: Vital Signs (12 hours) Temp Pulse Resp BP BP Pulse Ox 12/19/19 11:23 97.5 F L 56 L 17 103/66 98 12/19/19 09:04 57 L 126/81 12/19/19 08:00 99 12/19/19 07:05 97.5 F L 51 L 15 126/81 99 Weight Admit Weight 117 lb 12.8 oz Weight 117 lb 12.8 oz I&O: 12/18/19 12/19/19 12/20/19 06:59 06:59 06:59 Intake Total 120 275 Output Total 50 400 Balance 70 -125 Result Diagrams: 12/17/19 06:12 12/18/19 14:00 Additional Labs: Accuchecks 12/19/19 12/18/19 12/18/19 05:08 19:34 16:44 POC Glucose 101 98 93 12/18/19 11:21 POC Glucose 101 Radiology Reviewed by me: Yes Hospitalist ROS - Review of Systems All other systems reviewed; all pertinent +/- noted in HPI/Subj - Medication Medications: Active Medications Generic Name Dose Route Start Last Admin Trade Name Freq PRN Reason Stop Dose Admin Amlodipine Besylate 5 mg 12/15/19 09:00 12/19/19 09:04 Norvasc PO 5 mg DAILY CARLOS Administration Aspirin 81 mg 12/15/19 09:00 12/19/19 08:55 Ecotrin PO 81 mg DAILY CARLOS Administration Carbidopa/Levodopa 1 tab 12/15/19 09:00 12/19/19 08:55 Sinemet 25-100 PO 1 tab BID CARLOS Administration Cefdinir 300 mg 12/16/19 21:00 12/19/19 08:54 Omnicef PO 300 mg BID CARLOS Administration Donepezil HCl 5 mg 12/15/19 09:00 12/19/19 08:54 Aricept PO 5 mg DAILY CARLOS Administration Enoxaparin Sodium 40 mg 12/15/19 09:00 12/19/19 08:56 Lovenox SC 40 mg 0900 CARLOS Administration Famotidine 20 mg 12/15/19 09:00 12/19/19 08:55 Pepcid PO 20 mg BID CARLOS Administration Memantine 20 mg 12/15/19 09:00 12/19/19 08:54 Namenda PO 20 mg DAILY CARLOS Administration Metformin HCl 500 mg 12/15/19 09:00 12/19/19 08:54 Glucophage PO 500 mg BID CARLOS Administration Oxybutynin Chloride 5 mg 12/15/19 09:00 12/19/19 08:55 Ditropan PO 5 mg DAILY CARLOS Administration Risperidone 0.5 mg 12/18/19 21:00 12/19/19 08:52 Risperdal M-Tab PO 0.5 mg BID CARLOS Administration Spironolactone 25 mg 12/15/19 08:00 12/19/19 08:55 Aldactone PO 25 mg QAM-WM CARLOS Administration - Exam General Appearance: NAD, awake alert Eye: PERRL, anicteric sclera ENT: normocephalic atraumatic, moist mucosa Neck: supple, symmetric, no lymphadenopathy Heart: no murmur, no gallops, no rubs Respiratory: CTAB, no wheezes, no rales, no ronchi, normal chest expansion Gastrointestinal: soft, non-tender, non-distended, no guarding, no rigidity Extremities: no edema Skin: no rashes Neurological: cranial nerve grossly intact, no focal deficits Neurological - other findings: Spontaneous spacicity of limb. Cogwheel rigidity , masked faces Musculoskeletal: generalized weakness, diffuse muscle atrophy Psychiatric: not oriented, flat affect Hosp A/P (1) UTI (urinary tract infection) Status: Acute (2) Anxiety and depression Code(s): F41.8 - OTHER SPECIFIED ANXIETY DISORDERS Status: Chronic (3) Dementia Code(s): F03.90 - UNSPECIFIED DEMENTIA WITHOUT BEHAVIORAL DISTURBANCE Status: Chronic Qualifiers: Dementia type: Alzheimer's disease (4) Diabetes type 2, controlled Code(s): E11.9 - TYPE 2 DIABETES MELLITUS WITHOUT COMPLICATIONS Status: Chronic (5) Hypertension Code(s): I10 - ESSENTIAL (PRIMARY) HYPERTENSION Status: Chronic Qualifiers: Hypertension type: essential hypertension Qualified Code(s): I10 - Essential (primary) hypertension (6) Parkinson disease Code(s): G20 - PARKINSON'S DISEASE Status: Chronic (7) Physical deconditioning Code(s): R53.81 - OTHER MALAISE Status: Chronic (8) Hypernatremia Code(s): E87.0 - HYPEROSMOLALITY AND HYPERNATREMIA Status: Acute (9) AMS (altered mental status) Code(s): R41.82 - ALTERED MENTAL STATUS, UNSPECIFIED Status: Acute - Plan Plan: medical unit patient admitted with altered mental status which was partially contributed to hypernatremia, which has been correcting nicely sodium is now at the high end of normal, will re check in the AM continue to restrict free water intake More awake with decrease Risperdal to 0.5 mg b.i.d. An accurate calorie count would be helpfull encourage oral intake nutritional supplements dietary consultation, recommendations appreciated continue other home medications is able blood pressure control blood sugar control G.I. 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
[2019-12-20] MEDS: Spironolactone 25 MG TAB PO SCH (07:45)
[2019-12-20] MEDS: Amlodipine 5 MG TAB PO SCH (07:45)
[2019-12-20] MEDS: Cefdinir 300 MG CAP PO SCH ×2 (07:45→21:40)
[2019-12-20] MEDS: metFORMIN 500 MG TAB PO SCH ×2 (07:45→21:40)
[2019-12-20] MEDS: Aspirin 81 mg Enteric Coated Tablet PO SCH (07:46)
[2019-12-20] MEDS: Donepezil HCl 5 MG TAB PO SCH (07:46)
[2019-12-20] MEDS: Carbidopa/Levodopa 25-100 mg Tablet PO SCH ×2 (07:46→21:40)
[2019-12-20] MEDS: RisperDAL M-TAB 1 MG TAB PO SCH ×2 (07:46→21:40)
[2019-12-20] MEDS: Oxybutynin 5 MG TAB PO SCH (07:46)
[2019-12-20] MEDS: Famotidine 20 MG TAB PO SCH ×2 (07:46→21:40)
[2019-12-20] MEDS: Enoxaparin Sodium 40 MG/0.4 ML SYRINGE SC SCH (07:55)
--- NOTE | 2019-12-20 10:50 | PDOC.HOSPP ---
- Subjective Encounter Date: 12/20/19 Encounter Time: 10:49 Subjective: Non-verbal today. - Objective Vital Signs & Weight: Vital Signs (12 hours) Temp Pulse Resp BP Pulse Ox 12/20/19 08:00 97 12/20/19 07:45 51 L 12/20/19 07:44 98.6 F 51 L 16 150/79 H 97 Weight Admit Weight 117 lb 12.8 oz Weight 117 lb 12.8 oz I&O: 12/19/19 12/20/19 12/21/19 06:59 06:59 06:59 Intake Total 275 222 Output Total 400 200 Balance -125 22 Result Diagrams: 12/17/19 06:12 12/18/19 14:00 Additional Labs: Accuchecks 12/20/19 12/19/19 12/19/19 05:18 19:27 15:37 POC Glucose 100 140 H 95 12/19/19 11:26 POC Glucose 103 Hospitalist ROS - Medication Medications: Active Medications Generic Name Dose Route Start Last Admin Trade Name Shay PRN Reason Stop Dose Admin Amlodipine Besylate 5 mg 12/15/19 09:00 12/20/19 07:45 Norvasc PO 5 mg DAILY CARLOS Administration Aspirin 81 mg 12/15/19 09:00 12/20/19 07:46 Ecotrin PO 81 mg DAILY CARLOS Administration Carbidopa/Levodopa 1 tab 12/15/19 09:00 12/20/19 07:46 Sinemet 25-100 PO 1 tab BID CARLOS Administration Cefdinir 300 mg 12/16/19 21:00 12/20/19 07:45 Omnicef PO 300 mg BID CARLOS Administration Donepezil HCl 5 mg 12/15/19 09:00 12/20/19 07:46 Aricept PO 5 mg DAILY CARLOS Administration Enoxaparin Sodium 40 mg 12/15/19 09:00 12/20/19 07:55 Lovenox SC 40 mg 09 CARLOS Administration Famotidine 20 mg 12/15/19 09:00 12/20/19 07:46 Pepcid PO 20 mg BID CARLOS Administration Memantine 20 mg 12/15/19 09:00 12/20/19 07:45 Namenda PO 20 mg DAILY CARLOS Administration Metformin HCl 500 mg 12/15/19 09:00 12/20/19 07:45 Glucophage PO 500 mg BID CARLOS Administration Oxybutynin Chloride 5 mg 12/15/19 09:00 12/20/19 07:46 Ditropan PO 5 mg DAILY CARLOS Administration Risperidone 0.5 mg 12/18/19 21:00 12/20/19 07:46 Risperdal M-Tab PO 0.5 mg BID CARLOS Administration Spironolactone 25 mg 12/15/19 08:00 12/20/19 07:45 Aldactone PO 25 mg QAM-WM CARLOS Administration - Exam General Appearance: NAD, awake alert Heart: RRR, no murmur, no gallops, no rubs, normal peripheral pulses Respiratory: CTAB, no wheezes, no rales, no ronchi, normal chest expansion, no tachypnea, normal percussion Gastrointestinal: soft, non-tender, non-distended, normal bowel sounds, no palpable masses, no hepatomegaly, no splenomegaly, no bruit Extremities: no cyanosis, no clubbing, no edema Musculoskeletal: generalized weakness Psychiatric: lethargic Hosp A/P (1) Acute metabolic encephalopathy Code(s): G93.41 - METABOLIC ENCEPHALOPATHY Status: Acute (2) Hypernatremia Code(s): E87.0 - HYPEROSMOLALITY AND HYPERNATREMIA Status: Acute (3) Anxiety and depression Code(s): F41.8 - OTHER SPECIFIED ANXIETY DISORDERS Status: Chronic (4) Dementia Code(s): F03.90 - UNSPECIFIED DEMENTIA WITHOUT BEHAVIORAL DISTURBANCE Status: Chronic Qualifiers: Dementia type: Alzheimer's disease (5) Diabetes type 2, controlled Code(s): E11.9 - TYPE 2 DIABETES MELLITUS WITHOUT COMPLICATIONS Status: Chronic (6) Hypertension Code(s): I10 - ESSENTIAL (PRIMARY) HYPERTENSION Status: Chronic Qualifiers: Hypertension type: essential hypertension Qualified Code(s): I10 - Essential (primary) hypertension (7) Parkinson disease Code(s): G20 - PARKINSON'S DISEASE Status: Chronic (8) Physical deconditioning Code(s): R53.81 - OTHER MALAISE Status: Chronic (9) UTI (urinary tract infection) Status: Acute - Plan Sodium has improved. Will recheck now. Not taking po's. Family wants PEG. Consult GI. Machine Tool Technician Instructor has seen patient and has tube feeding recs on chart. Once PEG placed will initiate feeds and check lytes.
[2019-12-20 11:19] LABS: INR-International Normal Ratio 1.1; PTT 34.2 SEC (22.9-36.1); Prothrombin Time 13.8 SEC (12.0-14.7)
[2019-12-20 11:53] LABS: Chloride 111 mmol/L (98-107); Potassium 3.5 mmol/L (3.5-5.1); Sodium 146 mmol/L (136-145)
[2019-12-20 11:54] LABS: Calcium 9.3 mg/dL (7.8-10.44); Glucose 93 mg/dL (83-110)
[2019-12-20 11:56] LABS: Anion Gap 17 mmol/L (10-20); Carbon Dioxide 22 mmol/L (23-31)
[2019-12-20 11:58] LABS: Calc. Creatinine Clearance 63 mL/min (70-130); Estimated GFR-MDRD Greater than 90
[2019-12-20 11:59] LABS: BUN (Urea Nitrogen) 15 mg/dL (9.8-20.1)
[2019-12-20] MEDS: Dextrose 5 %-0.45 % NaCl 1,000 ML IV SCH (19:00)
--- NOTE | 2019-12-20 19:46 | CON ---
DATE OF CONSULTATION: 12/20/2019 CHIEF COMPLAINT: Inability to swallow. HISTORY OF PRESENT ILLNESS: Ms. Savage is a 74-year-old woman who was admitted with altered mental status and hypernatremia. She was very dehydrated on presentation and received IV fluids. She has been nonverbal and not interactive. She apparently will hold some food in her mouth and swallow small amounts, but mostly has just been holding the food. She has not been able to meet nutritional needs by mouth and she has been deemed an aspiration risk as well. GI was consulted for gastrostomy tube placement. The patient is unable to provide history. When I spoke to the patient's , he states that she has not been interactive and has been prison bound. He has discussed options with his [id number] and they have decided to proceed with gastrostomy tube placement. PAST MEDICAL HISTORY: 1. Parkinson disease. 2. Dementia. 3. Hypertension. 4. Diabetes mellitus, type 2. 5. Urinary tract infection. PAST SURGICAL HISTORY: She had colonoscopy with polypectomy in 2017. She had 4 adenomatous polyps removed. FAMILY HISTORY: Negative for GI malignancy. SOCIAL HISTORY: The patient is a prison bound. No alcohol, tobacco, or drugs. ALLERGIES: PENICILLIN. CURRENT INPATIENT MEDICATIONS: Include: 1. Amlodipine. 2. Aspirin. 3. Carbidopa/levodopa. 4. Cefdinir. 5. Donepezil. 6. Enoxaparin. 7. Famotidine. 8. Memantine. 9. Metformin. 10. Risperidone. 11. Spironolactone. REVIEW OF SYSTEMS: Unobtainable due to the patient's mental status. PHYSICAL EXAMINATION: VITAL SIGNS: Temperature is 98.6, pulse 51, and blood pressure 150/79. GENERAL: She is in no acute distress. She is not responsive. She will open her eyes on gentle physical stimulation. HEENT: Her eyes have no scleral icterus. Oropharynx is clear without lesions. No cervical or supraclavicular lymphadenopathy. LUNGS: Clear to auscultation bilaterally. HEART: Regular rate and rhythm without murmur. ABDOMEN: Soft, nontender, and nondistended. Bowel sounds are present. There are no scars of the left upper quadrant. EXTREMITIES: No lower extremity edema. LABORATORY DATA: White blood cell count 6.5, hemoglobin is 13.1 down from 16.3 when she was first admitted, and platelets 155. INR 1.1. Sodium is down to 146 from 159 on admission, creatinine 0.66, bilirubin 0.8, AST 27, ALT 39, alkaline phosphatase 130, and albumin 3.9. IMPRESSION: 1. Oropharyngeal dysphagia with inability to meet nutritional needs by mouth. She has been deemed an aspiration risk by Speech Pathology. She has been taking a very little in by mouth and has been holding the food in her mouth. 2. Severe dehydration with hypernatremia on presentation. The hypernatremia has improved; however, her mental status has not. 3. History of Parkinson disease and dementia. RECOMMENDATIONS: 1. I discussed the risks and benefits of endoscopy and gastrostomy tube placement with the patient's , Dallas Mancilla. His contact number is [phone]. The patient's has decided to follow through with percutaneous endoscopic gastrostomy tube placement after discussion of the risks and benefits. He has also discussed this with his [id number]. 2. Preprocedure antibiotics. 3. The patient is currently on an oral diet; however, taking a very little by mouth. She was admitted with hypernatremia. The nursing staff will discuss IV fluid status with the hospitalists while she will be n.p.o. awaiting her gastrostomy tube. Job ID: [id number]
[2019-12-21] MEDS: Amlodipine 5 MG TAB PO SCH (07:18)
[2019-12-21] MEDS: Dextrose 5 %-0.45 % NaCl 1,000 ML IV SCH ×2 (07:18→20:22)
[2019-12-21] MEDS: Spironolactone 25 MG TAB PO SCH (07:18)
[2019-12-21] MEDS: Carbidopa/Levodopa 25-100 mg Tablet PO SCH ×2 (07:19→20:02)
[2019-12-21] MEDS: Aspirin 81 mg Enteric Coated Tablet PO SCH (07:19)
[2019-12-21] MEDS: Donepezil HCl 5 MG TAB PO SCH (07:19)
[2019-12-21] MEDS: Cefdinir 300 MG CAP PO SCH ×2 (07:19→20:03)
[2019-12-21] MEDS: metFORMIN 500 MG TAB PO SCH ×2 (07:20→20:03)
[2019-12-21] MEDS: Famotidine 20 MG TAB PO SCH ×2 (07:20→20:03)
[2019-12-21] MEDS: Oxybutynin 5 MG TAB PO SCH (07:20)
[2019-12-21] MEDS: RisperDAL M-TAB 1 MG TAB PO SCH ×2 (07:20→20:04)
[2019-12-21 08:49] LABS: BUN (Urea Nitrogen) 11 mg/dL (9.8-20.1); Calc. Creatinine Clearance 65 mL/min (70-130); Calcium 8.9 mg/dL (7.8-10.44); Carbon Dioxide 19 mmol/L (23-31); Chloride 111 mmol/L (98-107); Estimated GFR-MDRD Greater than 90; Glucose 122 mg/dL (83-110); Potassium 4.1 mmol/L (3.5-5.1); Sodium 141 mmol/L (136-145)
[2019-12-21 08:56] LABS: Anion Gap 15 mmol/L (10-20)
[2019-12-21] MEDS ORDERED: PROPOFOL 200 MG/20 ML VIAL ONE (11:13)
[2019-12-21] MEDS ORDERED: Lidocaine 1% PF 5 ML VIAL ONE (11:13)
[2019-12-21] MEDS ORDERED: Levofloxacin 500 mg/D5W 100 ml Premix Bag ONE (12:45)
[2019-12-21] MEDS ORDERED: Fentanyl 100 MCG/2 ML VIAL ONE (12:46)
[2019-12-21] MEDS ORDERED: Meperidine HCl/PF 25 MG/ML VIAL SLOW IVP PRN (13:23)
[2019-12-21] MEDS ORDERED: Promethazine HCl 25 MG/ML VIAL IM PRN (13:23)
[2019-12-21] MEDS ORDERED: Promethazine HCl 25 MG/ML VIAL SLOW IVP PRN (13:23)
[2019-12-21] MEDS ORDERED: Ondansetron HCl/PF 4 MG/2 ML Vial IVP PRN (13:23)
--- NOTE | 2019-12-21 14:48 | PQF ---
CATRACHITO HONEYCUTT, NOHELIA Clifton MD [id number] CLINICAL DOCUMENTATION IMPROVEMENT CLARIFICATION FORM: ICD-10 Updated PLEASE DO AN ADDENDUM TO THE PROGRESS NOTE WITH ANY DOCUMENTATION UPDATES OR ADDITIONS AND CARRY THROUGH TO DC SUMMARY. THANK YOU. Date: 12/21/2019 ATTN: Dr. Whitney Please exercise your independent, professional judgment in responding to the clarification form. Clinical indicators are provided on the bottom of this form for your review Please check appropriate box(s): [ x ] Protein Calorie Malnutrition: [ ] Mild [ ] Moderate [x ] Severe [ ] Other Malnutrition (please specify) __ [ ] Underweight without malnutrition [ ] Cachexia [ ] Other diagnosis [ ] Unable to determine In addition, please specify: Present on Admission (POA): [ x ] Yes [ ] No [ ] Unable to determine CLINICAL INDICATORS - SIGNS / SYMPTOMS / LABS / RESULTS AND LOCATION IN MR *Palliative Care Consult 12/14 (Gonzalo): Physical Exam: Musculoskeletal: Diffuse muscle atrophy *Speech Therapy Assessment 12/14: - Expressive Language Summary Comments: Pt was not able to expressively communicate ... will require total care at this time. - Functional Impairment: Swallowing Severe Functional Impairment *Food and Nutrition Services Assessment 12/14: - BMI 19.5 - Malnutrition: Related to dementia, potentially dysphagia/poor dentition - -15% wt loss x~3 months per EMR; mild to moderate temporalis muscle wasting suggesting severe malnutrition in the context of chronic disease. *Consult 12/19 (Jared): Oropharangeal dysphagia with inability to meet nutritional needs by mouth ... severe dehydration with hypernatremia on presentation. RISK FACTORS / RESULTS AND LOCATION IN MR *H&P 12/13 (Dale): Advanced Parkinson's Dementia .... Hypernatremia ... This may be due to poor p.o. intake due to progression of her dementia. TREATMENT / RESULTS AND LOCATION IN MR *Speech Consult 12/14 *Food and Nutrition Services Assessment 12/14 *Nutrition Orders: 12/16 Regular Diet-diet w/ risk of aspiration 12/16 Supplement: Glucerna Shake PRN, Supplement: Rudy Anton TID with meals *Consultation GI 12/19: Gastrostomy tube Thank you, Irish (This form is maintained as a part of the permanent medical record) 2014 [employer]. All Rights Reserved Irish Griffiths RN, CDS [email or web address] cell phone: Moderate Malnutrition (in acute illness) Energy Intake: <75% of estimated energy requirement for > 7 days Weight Loss: 1-2%/1 week; 5%/ 1 month; 7.5%/3 months Other: mild body fat loss; mild muscle mass loss; mild fluid accumulation; Severe Malnutrition (in acute illness) Energy Intake: < 50% of estimated energy requirement for > 5 days Weight Loss: >1-2%/1 week; >5%/1 month; >7.5%/3 months Other: moderate body fat loss; moderate muscle mass loss; moderate- severe fluid accumulation; measurably reduced manager business process strength Moderate Malnutrition (in chronic illness) Energy Intake: <75% of estimated energy requirement for >1 month Weight Loss: 5%/1 month; 7.5%/3 months; 10%/6 months; 20%/1 year Other: mild body fat loss; mild muscle mass loss; mild fluid accumulation Severe Malnutrition (in chronic illness) Energy Intake: <75% of estimated energy requirement for >1 month Weight Loss: >5%/1 month; >7.5%/3 months; >10%/6 months; >20%/1 year Other: severe body fat loss; severe muscle mass loss; severe fluid accumulation; measurably reduced manager business process strength MTDD
--- NOTE | 2019-12-21 18:57 | OP ---
DATE OF PROCEDURE: 12/21/2019 PREPROCEDURE DIAGNOSES: Oropharyngeal dysphagia, altered mental status, dementia. POSTPROCEDURE DIAGNOSIS: PEG tube placement by Ponsky pull technique. ANESTHESIA: TIVA, antibiotics, and Levaquin. RECOMMENDATIONS: 1. Okay to use PEG tube for feeding in 3 hours. Consider decreasing amount of sedation to see if the patient wakes up so that maybe she can eat a little bit on her own. She is on b.i.d. Risperdal. It is unclear what her baseline is. She is on also oxybutynin which may be making her more sleepy. The Namenda can probably be discontinued. She has pretty advanced with dementia and this is not going to probably add very much. 2. We will follow from a distance. Please call for further assistance. PROCEDURE IN DETAIL: After the patient was informed of the risks, benefits, possible complications, Dr. Coleman got consent from the family for the PEG tube. She is brought to endoscopy suite, where she was sedated. A bite block was placed in the orifices. The endoscope was advanced through the esophagus, stomach, and second and third portions of the duodenum. The scope was then removed. The duodenum, stomach, and esophagus were normal. Retroflexed views in the stomach were normal. The PEG tube was placed by Ponsky pull technique after abdomen was prepped and draped in sterile fashion. There was good transillumination and finger indentation prior to placing the tube. After the tube was placed, there was good appearance, both endoscopically and externally. Abdominal binder was placed to prevent the patient from removing the tube inadvertently. Job ID: [id number]
[2019-12-22] MEDS: Famotidine 20 MG TAB PO SCH (08:42)
[2019-12-22] MEDS: Amlodipine 5 MG TAB PO SCH (08:42)
[2019-12-22] MEDS: Carbidopa/Levodopa 25-100 mg Tablet PO SCH (08:42)
[2019-12-22] MEDS: Cefdinir 300 MG CAP PO SCH (08:42)
[2019-12-22] MEDS: Oxybutynin 5 MG TAB PO SCH (08:43)
[2019-12-22] MEDS: Aspirin 81 mg Enteric Coated Tablet PO SCH (08:43)
[2019-12-22] MEDS: Spironolactone 25 MG TAB PO SCH (08:43)
[2019-12-22] MEDS: metFORMIN 500 MG TAB PO SCH (08:43)
[2019-12-22] MEDS: Donepezil HCl 5 MG TAB PO SCH (08:43)
[2019-12-22] MEDS: RisperDAL M-TAB 1 MG TAB PO SCH (08:44)
[2019-12-22] MEDS: Enoxaparin Sodium 40 MG/0.4 ML SYRINGE SC SCH (10:24)
[2019-12-22] MEDS: Dextrose 5 %-0.45 % NaCl 1,000 ML IV SCH (10:27)
[2019-12-22 12:07] VITALS: BP 119/72; TEMP 97.9
--- NOTE | 2019-12-22 12:37 | PRG ---
DATE OF SERVICE: 12/22/2019 SUBJECTIVE: Tube feeds were started, undergoing in, appears to be tolerating them well. OBJECTIVE: VITAL SIGNS: Temperature 97.9, pulse 56, blood pressure 119/72, 100% oxygen saturation on room air. GENERAL: In no acute distress. Somnolent, but arousable, does not communicate meaningfully. HEART: Regular rate and rhythm. LUNGS: Clear to auscultation bilaterally. ABDOMEN: Bowel sounds are present. Nondistended. The abdomen is soft. I examined the PEG tube in the left upper quadrant. It appears to be in good position. The PEG site looks good. No surrounding erythema. I did loosen the external bumper slightly to 3 cm, which should be a good distance for her. EXTREMITIES: No peripheral edema. LABORATORY STUDIES: Glucose 119. ASSESSMENT AND PLAN: 1. Oropharyngeal dysphagia. 2. Dementia. 3. Postoperative day 1, status post PEG tube placement performed yesterday by Dr. Mcgee. The patient is tolerating tube feeds. PEG site looks good. I loosened the external bumper slightly to 3 cm. GI will sign off at this time. Please call back anytime with questions or concerns. Job ID: [id number]
== END 2019-12-22 17:05 | DRG 640 ==
LOC: ERS 18:11 → T4-A 21:26
PROVIDERS: ADMIT Emergency Medicine; ATTEND Emergency Medicine
PROC: 0DH63UZ Insertion of Feeding Device into Stomach, Percutaneous Approach (ICD-10-PCS; principal; 2019-12-14)
DX: E87.0 Hyperosmolality and hypernatremia (principal); R40.2312 Coma scale, best motor response, none, at arrival to emergency department; R40.2212 Coma scale, best verbal response, none, at arrival to emergency department; G93.41 Metabolic encephalopathy; E43 Unspecified severe protein-calorie malnutrition; N39.0 Urinary tract infection, site not specified; Z68.1 Body mass index [BMI] 19.9 or less, adult; E87.2 Acidosis; Z51.5 Encounter for palliative care; I10 Essential (primary) hypertension; E11.9 Type 2 diabetes mellitus without complications; G20 Parkinson's disease; F02.80 Dementia in other diseases classified elsewhere, unspecified severity, without behavioral disturbance, psychotic disturbance, mood disturbance, and anxiety; R40.2142 Coma scale, eyes open, spontaneous, at arrival to emergency department; E86.9 Volume depletion, unspecified; E78.5 Hyperlipidemia, unspecified; E86.0 Dehydration; R53.81 Other malaise; E87.6 Hypokalemia; F32.9 Major depressive disorder, single episode, unspecified; F41.9 Anxiety disorder, unspecified; G30.9 Alzheimer's disease, unspecified; R13.12 Dysphagia, oropharyngeal phase; Z88.0 Allergy status to penicillin; Z79.899 Other long term (current) drug therapy; Z79.4 Long term (current) use of insulin; Z79.82 Long term (current) use of aspirin; Z87.891 Personal history of nicotine dependence
CPT/HCPCS: 36415; 36416; 51701; 80048; 80053; 81003; 81015; 83605; 85025; 85027; 85610; 85730; 87086; 93005; 94760; 96365; A4353; J0696; J1650; J1956; J2001; J2704; J3010; J3370; J3490

== ENCOUNTER 2020-01-28 09:24 | Emergency (ER) | payer MEDICARE, OTHER ==
[2020-01-28 10:21] LABS: #Basophils 0.1 thou/uL (0.0-0.2); #Eosinphils 0.1 thou/uL (0.0-0.7); #Lymphocytes 1.9 thou/uL (1.20-3.40); #Monocytes 0.5 thou/uL (0.11-0.59); #Neutrophils 6.2 thou/uL (1.40-6.50); %Basophils 0.6 % (0.0-1.0); %Eosinophils 0.8 % (0.0-10.0); %Lymphocytes 21.3 % (21.0-51.0); %Monocytes 6.2 % (0.0-10.0); %Neutrophils 71.1 % (42.0-75.0); Hemoglobin 13.3 g/dL (12.0-16.0); Mean Corpuscular HGB CONC 32.1 g/dL (32.0-36.0); Mean Corpuscular Volume 87.1 fL (78.0-98.0); Mean Platelet Volume 8.7 fL (7.4-10.4); Platelet Count 231 thou/uL (130-400); RBC Distribution Width 13.4 % (11.5-14.5); Red Blood Cell (RBC) Count 4.76 mill/uL (4.20-5.40); White Blood Cell (WBC) Count 8.7 thou/uL (4.8-10.8)
[2020-01-28 10:22] LABS: Prothrombin Time 12.8 sec (12.0-14.7)
[2020-01-28 10:49] LABS: ALT (SGPT) 23 U/L (8-55); AST (SGOT) 16 U/L (5-34); Albumin 3.9 g/dL (3.4-4.8); Alkaline Phosphatase 100 U/L (40-110); Anion Gap 14 mmol/L (10-20); BUN (Urea Nitrogen) 22 mg/dL (9.8-20.1); Bilirubin, Total 0.4 mg/dL (0.2-1.2); Calc. Creatinine Clearance 0 mL/min (70-130); Calcium 9.9 mg/dL (7.8-10.44); Carbon Dioxide 29 mmol/L (23-31); Chloride 101 mmol/L (98-107); Estimated GFR-MDRD Greater than 90; Globulin 3.2 g/dL (2.4-3.5); Glucose 125 mg/dL (83-110); Potassium 4.5 mmol/L (3.5-5.1); Protein, Total 7.1 g/dL (6.0-8.3); Sodium 139 mmol/L (136-145)
== END 2020-01-28 18:35 | disposition home or self-care (01) ==
LOC: ERS 09:24
DX: K92.1 Melena (principal); E11.9 Type 2 diabetes mellitus without complications; I10 Essential (primary) hypertension; F03.90 Unspecified dementia, unspecified severity, without behavioral disturbance, psychotic disturbance, mood disturbance, and anxiety; F02.80 Dementia in other diseases classified elsewhere, unspecified severity, without behavioral disturbance, psychotic disturbance, mood disturbance, and anxiety; Z79.899 Other long term (current) drug therapy; Z79.4 Long term (current) use of insulin; Z79.891 Long term (current) use of opiate analgesic
CPT/HCPCS: 36415; 80053; 82274; 85025; 85610; 86900; 86901; 99285

== ENCOUNTER 2020-07-10 17:51 | Inpatient (IN) | payer MEDICARE, MEDICAID ==
[2020-07-10] MEDS ORDERED: Acetaminophen 325 MG Suppository ONE (19:06)
[2020-07-10] MEDS ORDERED: Acetaminophen 650 MG Suppository ONE (19:06)
[2020-07-10] MEDS ORDERED: Cefepime 2 GM VIAL ONE (19:06)
[2020-07-10 19:11] LABS: #Eosinphils 0.1 thou/uL (0.0-0.7); #Lymphocytes 1.5 thou/uL (1.20-3.40); #Monocytes 0.5 thou/uL (0.11-0.59); %Basophils 0.2 % (0.0-1.0); %Eosinophils 0.9 % (0.0-10.0); %Lymphocytes 24.6 % (21.0-51.0); %Monocytes 8.5 % (0.0-10.0); %Neutrophils 65.8 % (42.0-75.0); Hemoglobin 12.8 g/dL (12.0-16.0); Mean Corpuscular HGB CONC 32.5 g/dL (32.0-36.0); Mean Corpuscular Volume 86.2 fL (78.0-98.0); Mean Platelet Volume 8.2 fL (7.4-10.4); Platelet Count 194 thou/uL (130-400); RBC Distribution Width 13.2 % (11.5-14.5); Red Blood Cell (RBC) Count 4.58 mill/uL (4.20-5.40); White Blood Cell (WBC) Count 6.1 thou/uL (4.8-10.8)
[2020-07-10 19:15] LABS: Bilirubin Negative (Negative); Blood, Urine Negative (Negative); Clarity Clear (Clear); Glucose, Urine (Dipstick) Normal (Negative); Ketone, Urine Negative (Negative); Leukocyte 500 Leu/uL (Negative); Nitrite Negative (Negative); Protein, Urine (Dipstick) 30 mg/dL (Neg-Trace); Specific Gravity, Urine 1.028 (1.002-1.036); Squamous Epithelial 0-3 HPF (0-3); Urobilinogen Normal mg/dL (Less than 2); WBC/HPF Greater than 50 HPF (0-3)
[2020-07-10 19:24] LABS: ALT (SGPT) 68 U/L (8-55); AST (SGOT) 31 U/L (5-34); Albumin 3.2 g/dL (3.4-4.8); Alkaline Phosphatase 89 U/L (40-110); Anion Gap 17 mmol/L (10-20); BUN (Urea Nitrogen) 31 mg/dL (9.8-20.1); Bilirubin, Total 0.3 mg/dL (0.2-1.2); Calc. Creatinine Clearance 0 mL/min (70-130); Calcium 8.8 mg/dL (7.8-10.44); Carbon Dioxide 23 mmol/L (23-31); Chloride 104 mmol/L (98-107); Estimated GFR-MDRD Greater than 90; Globulin 3.3 g/dL (2.4-3.5); Glucose 111 mg/dL (83-110); Potassium 4.5 mmol/L (3.5-5.1); Protein, Total 6.5 g/dL (6.0-8.3); Sodium 139 mmol/L (136-145)
[2020-07-10 19:32] LABS: Bacteria/HPF 1+ HPF (None Seen); Yeast-Budding 2+ HPF (None Seen)
[2020-07-10 19:33] LABS: Calcium Oxalate Crystals Rare HPF (None Seen)
--- NOTE | 2020-07-10 20:07 | RAD ---
Chest one view HISTORY: Fever. COMPARISON: 09/28/2019. FINDINGS: Cardiac silhouette is magnified by projection. Pulmonary vasculature is unremarkable. Shall ow inspiration accentuates pulmonary markings. Mediastinum is midline with aortic calcification. No lobar consolidation or evidence of pneumothorax. IMPRESSION : Stable radiographic appearance of the chest. No active cardiopulmonary abnormalities are demonstrated .
--- NOTE | 2020-07-10 20:55 | CT ---
CT head noncontrast HISTORY: Altered mental status. COMPARISON: 09/28/2019. FINDINGS: There is no evidence of acute intracranial hemorrhage or infarct. Diffuse cortical atrophy and chronic ischemic small vessel disease similar in appearance to the prior exam. There is no mass effect or shift of midline structures. IMPRESSION : No acute intracranial abnormalities are demonstrated.
[2020-07-10] MEDS ORDERED: Vancomycin 1.5 GRAM/300 ML BAG 1.5 GM in Premix Bag 1 BAG IVPB SCH (21:15)
[2020-07-11] MEDS ORDERED: Acetaminophen 650 MG Suppository PR PRN (01:09)
[2020-07-11] MEDS ORDERED: Sodium Chloride 0.9% 1,000 ML IV SCH (01:15)
[2020-07-11] MEDS ORDERED: HumaLOG 300 UNITS/3 ML VIAL SC PRN (04:44)
[2020-07-11] MEDS ORDERED: Dextrose 50% Abboject 50 ML SYRINGE SLOW IVP PRN (04:44)
[2020-07-11] MEDS ORDERED: Dextrose 5% in Water 1,000 ML IV PRN (04:44)
--- NOTE | 2020-07-11 05:12 | HP ---
REASON FOR ADMISSION: Change in mental status. HISTORY OF PRESENT ILLNESS: This is a 75-year-old female patient, who was sent from [facility] for increased confusion. She is demented and has Parkinson disease, and at baseline, she is not very talkative, but as per prison, she has not been responding at all. EMS brought the patient to the emergency room. It was noted that she was rooming with a patient who tested positive for COVID-19. In the ER, sepsis alert was initiated because of tachypnea and fever. She was given a dose of vancomycin and cefepime. Her urinalysis reflected infection. Currently, she is on Med/Surge, appears to be comfortable, but still noncommunicative, nonverbal, contracted. I did review her records, and the patient was admitted to our hospital in December 2019, for hyponatremia and dehydration. She remained hospitalized for 8 days. During her stay, she was started on IV fluids. She had a PEG tube placed. PAST MEDICAL HISTORY: 1. Parkinson. 2. Dementia. 3. High blood pressure. 4. Diabetes type 2. 5. Frequent UTIs. 6. Anxiety. 7. Depression. SOCIAL HISTORY: She resides in a prison. ALLERGIES: TO PENICILLIN, BUT CAN TOLERATE CEPHALOSPORIN. REVIEW OF SYSTEM: Unable to obtain due to her confusion. FAMILY SAMPLE: Unable to obtain due to her confusion. PHYSICAL EXAMINATION: GENERAL: She is nonverbal. She opens her eyes. She is contracted. Her upper extremities are very rigid. VITAL SIGNS: Her blood pressure is 119/55. Her heart rate is 79. Saturating 98% on room air. Temperature initially 102.6, recheck is 99.1. HEENT: Head is nontraumatic, normocephalic. Pupils equal, reactive. Extraocular movements are intact. NECK: Supple. No adenopathy. No murmur. Thyroid is not palpable. Trachea is midline. No supraclavicular adenopathy. HEART: S1, S2 regular. No murmur. No gallops. No friction rubs. No displacement of PMI. LUNGS: Poor respiratory efforts. ABDOMEN: Bowel sounds are positive. Nontender. EXTREMITIES: No lower extremity edema. No cyanosis. NEURO EXAM: Unable to assess. She is contracted. She is rigid. She has cogwheel rigidity, also nonverbal. LABORATORY DATA: Blood work shows WBC 6.1, hemoglobin 12.8, and platelets of 194. Sodium 139, potassium 4.5, BUN 31, creatinine 0.64. Urinalysis shows infection. A chest x-ray shows no active cardiopulmonary abnormality. A brain CT shows no acute abnormality. ASSESSMENT AND PLAN: This is a 75-year-old female patient, presenting with increased confusion. She was febrile. Most likely, she does have sepsis secondary to urinary tract infection. Neurology: The patient has dementia and Parkinson disease. We are awaiting the prison send us the list of her medications, so we can restart them. The patient does have a urinary tract infection. We will have her on cefepime, awaiting urine culture and sensitivity. The patient is pending a COVID-19 test. She tested negative on Friday, which was 4 days ago. For her diabetes, she will be on insulin sliding scale. Metformin will be held. For deep vein thrombosis prophylaxis, she will be on Lovenox. In regard of her code status, she is a full code as per the prison paperwork. Job ID: [id number]
[2020-07-11] MEDS: Dextrose 5 % And 0.9 % NaCl 1,000 ML IV SCH ×3 (05:39→20:39)
[2020-07-11 06:02] VITALS: BMI 23.7
[2020-07-11] MEDS: Cefepime 2 GM in Sodium Chloride 0.9% 100 ML IVPB SCH ×2 (06:18→19:09)
[2020-07-11] MEDS: Enoxaparin Sodium 40 MG/0.4 ML SYRINGE SC SCH (08:25)
[2020-07-11] MEDS ORDERED: Cefepime 2 GM in Sodium Chloride 0.9% 100 ML IVPB SCH (09:00)
[2020-07-11] MEDS: Vancomycin 1 GM in Premix Bag 1 BAG IVPB SCH ×2 (12:01→22:58)
[2020-07-11 14:12] LABS: SARS-CoV-2 MS2 Positive; SARS-CoV-2 N Gene Negative; SARS-CoV-2 S Gene Negative; SARS-CoV-2 by NAA Not Detected (NotDetected); SARS-CoV-2 orf1ab Negative
[2020-07-11] MEDS: Acetaminophen 325 MG TAB PO PRN (15:56)
[2020-07-11] MEDS: metFORMIN 500 MG TAB PO SCH (15:57)
[2020-07-11] MEDS: Carbidopa/Levodopa 25-100 mg Tablet PO SCH (20:40)
[2020-07-11] MEDS ORDERED: Senokot S 8.6-50 MG TAB PO SCH (21:00)
[2020-07-12] MEDS: Cefepime 2 GM in Sodium Chloride 0.9% 100 ML IVPB SCH ×2 (05:28→17:20)
[2020-07-12] MEDS: Acetaminophen 325 MG TAB PO PRN ×2 (05:33→20:58)
[2020-07-12 06:29] LABS: Hemoglobin 12.5 g/dL (12.0-16.0); Mean Corpuscular Hemoglobin 28.3 pg (27.0-31.0); Mean Corpuscular Volume 91.3 fL (78.0-98.0); Mean Platelet Volume 7.8 fL (7.4-10.4); Platelet Count 186 thou/uL (130-400); RBC Distribution Width 13.3 % (11.5-14.5)
[2020-07-12 06:38] LABS: CRP (Inflammatory) 0.55 mg/dL (= or < 0.5); Phosphorus 2.3 mg/dL (2.3-4.7)
[2020-07-12 06:39] LABS: Anion Gap 14 mmol/L (10-20); BUN (Urea Nitrogen) 19 mg/dL (9.8-20.1); Calc. Creatinine Clearance 83 mL/min (70-130); Calcium 8.8 mg/dL (7.8-10.44); Carbon Dioxide 19 mmol/L (23-31); Chloride 110 mmol/L (98-107); Estimated GFR-MDRD Greater than 90; Glucose 103 mg/dL (83-110); Magnesium 1.7 mg/dL (1.6-2.6); Potassium 4.1 mmol/L (3.5-5.1); Sodium 139 mmol/L (136-145)
[2020-07-12 06:47] LABS: Band 24 % (5-11); Lymphocytes 33 % (21-51); MDiff Complete? YES; Monocytes 4 % (0-10); Neutrophil 38 % (42-75); RBC Morphology Normal
[2020-07-12] MEDS: metFORMIN 500 MG TAB PO SCH ×2 (07:47→16:48)
[2020-07-12] MEDS: Enoxaparin Sodium 40 MG/0.4 ML SYRINGE SC SCH (07:47)
[2020-07-12] MEDS: Saccharomyces boulardii 250 MG CAP PO SCH (07:47)
[2020-07-12] MEDS: Aspirin 81 mg Enteric Coated Tablet PO SCH (07:47)
[2020-07-12] MEDS: Carbidopa/Levodopa 25-100 mg Tablet PO SCH ×2 (07:48→20:58)
[2020-07-12] MEDS: Donepezil HCl 5 MG TAB PO SCH (07:48)
[2020-07-12] MEDS: Amlodipine 5 MG TAB PO SCH (07:49)
--- NOTE | 2020-07-12 07:56 | ULT ---
US Renal Bilateral STANDARD: 07/12/2020 12:00 AM CLINICAL HISTORY: Recurrent urinary tract infections. STUDY: Renal ultrasound COMPARISON: None. FINDINGS: Right kidney: Echogenicity: Normal. Masses/cysts: None. Hydronephrosis: None. Calcifications: None. Length: 8.8 cm Left kidney: Echogenicity: Normal. Masses/cysts: None. Hydronephrosis: None. Calcifications: None. Length: 10.7 cm There is a moderate amount of debris in the urinary bladder which is distended. IMPRESSION: Urinary bladder debris; otherwise unremarkable exam.
[2020-07-12] MEDS ORDERED: Spironolactone 25 MG TAB PO SCH (08:00)
[2020-07-12] MEDS ORDERED: Oxybutynin 5 MG TAB PO SCH (09:00)
[2020-07-12] MEDS: Vancomycin 1 GM in Premix Bag 1 BAG IVPB SCH ×2 (10:20→23:18)
--- NOTE | 2020-07-12 16:19 | PDOC.HOSPP ---
- Subjective Encounter Date: 07/12/20 Encounter Time: 10:00 Subjective: Patient seen and examined for sepsis due to UTI. No overnight issues. Tolerating PEG tube feeding. Not safe for any consistency per speech therapy. - Objective Vital Signs & Weight: Vital Signs (12 hours) Temp Pulse Resp BP Pulse Ox 07/12/20 11:01 99.0 F 63 18 141/56 H 98 07/12/20 08:00 93 L 07/12/20 07:49 63 07/12/20 07:02 100.0 F H 63 16 134/63 93 L 07/12/20 05:33 100.2 F H Weight Admit Weight 138 lb 6.4 oz Weight 138 lb 6.4 oz I&O: 07/11/20 07/12/20 07/13/20 06:59 06:59 06:59 Intake Total 3745 Output Total 1400 Balance 2345 Result Diagrams: 07/12/20 06:02 07/12/20 06:02 Additional Labs: Accuchecks 07/12/20 07/12/20 07/12/20 15:36 11:00 06:00 POC Glucose 120 H 110 H 98 07/12/20 07/11/20 02:02 15:55 POC Glucose 105 H 143 H Abnormal Lab Results - Last 48 hrs 07/10/20 18:30: Urine Protein 30 A, Ur Leukocyte Esterase 500 A, Urine RBC 4-6 A, Urine WBC Greater than 50 A, Calcium Oxalate Crystal Rare A, Amorphous Crystals Rare A, Urine Bacteria 1+ A, Urine Yeast (Budding) 2+ A 07/10/20 18:59: BUN 31 H, ALT 68 H, Albumin 3.2 L, Albumin/Globulin Ratio 1.0 L 07/12/20 06:02: Chloride 110 H, Carbon Dioxide 19 L, Creatinine 0.58 L 07/12/20 06:02: MCHC 31.0 L, Neutrophils % (Manual) 38 L, Band Neuts % (Manual) 24 H 07/12/20 06:02: C-Reactive Protein 0.55 H Microbiology - Entire Visit 07/10/20 19:30 Venous blood - Left Hand Blood Culture - Preliminary Coagulase Neg Staphylococcus 07/10/20 18:59 Venous blood - Left Hand Blood Culture - Preliminary NO GROWTH AT 48 HOURS 07/10/20 18:30 Urine Straight Catheter Urine Culture - Preliminary NO GROWTH AT 12 HOURS Radiology Reviewed by me: Yes (Chest x-raynegative for infiltrate) Hospitalist ROS - Review of Systems ROS unobtainable: due to mental status - Medication Medications: Active Medications Generic Name Dose Route Start Last Admin Trade Name Freq PRN Reason Stop Dose Admin Acetaminophen 650 mg 07/11/20 10:16 07/12/20 05:33 Acetaminophen 325 Mg Tab PO 650 mg Q4H PRN Administration Fever/Mild Pain Amlodipine Besylate 5 mg 07/12/20 09:00 07/12/20 07:49 Amlodipine 5 Mg Tab PO 5 mg DAILY CARLOS Administration Aspirin 81 mg 07/12/20 09:00 07/12/20 07:47 Aspirin 81 Mg Enteric Coated Tablet PO 81 mg DAILY CARLOS Administration Carbidopa/Levodopa 1 tab 07/11/20 21:00 07/12/20 07:48 Carbidopa/Levodopa 25-100 Mg Tablet PO 1 tab BID CARLOS Administration Donepezil HCl 5 mg 07/12/20 09:00 07/12/20 07:48 Donepezil Hcl 5 Mg Tab PO 5 mg DAILY CARLOS Administration Enoxaparin Sodium 40 mg 07/11/20 09:00 07/12/20 07:47 Enoxaparin Sodium 40 Mg/0.4 Ml Syringe SC 40 mg 0900 CARLOS Administration Cefepime HCl 2 gm/ Sodium 100 mls @ 200 mls/hr 07/11/20 06:00 07/12/20 05:28 Chloride IVPB 100 mls 0600,1800 CARLOS Administration Vancomycin HCl 1 gm/ Device 200 mls @ 200 mls/hr 07/11/20 11:00 07/12/20 10:20 IVPB 200 mls 1100,2300 CARLOS Administration Dextrose/Sodium Chloride 1,000 mls @ 30 mls/hr 07/11/20 19:16 07/11/20 20:39 D5 0.9% Ns IV 1,000 mls .Q24H CARLOS Administration Memantine 20 mg 07/12/20 09:00 07/12/20 07:48 Memantine Hcl 10 Mg Tab PO 20 mg DAILY CARLOS Administration Metformin HCl 500 mg 07/11/20 17:00 07/12/20 07:47 Metformin 500 Mg Tab PO 500 mg BID-WM CARLOS Administration Oxybutynin Chloride 5 mg 07/12/20 09:00 07/12/20 07:48 Oxybutynin 5 Mg Tab PO 5 mg DAILY CARLOS Administration Quetiapine Fumarate 25 mg 07/11/20 21:00 07/11/20 20:40 Quetiapine Fumarate 25 Mg Tab PO 25 mg HS CARLOS Administration Saccharomyces Boulardii 250 mg 07/12/20 09:00 07/12/20 07:47 Saccharomyces Boulardii 250 Mg Cap PO 250 mg DAILY CARLOS Administration Spironolactone 25 mg 07/12/20 08:00 07/12/20 07:49 Spironolactone 25 Mg Tab PO 25 mg QAM-WM CARLOS Administration - Exam General Appearance: ill appearing Neck: supple, no JVD Heart: RRR, no gallops, no rubs, normal peripheral pulses Respiratory: no wheezes, no rales, no ronchi, normal chest expansion Gastrointestinal: soft, normal bowel sounds, no guarding, no rigidity Extremities: no cyanosis Neurological - other findings: Neuro/psychunable to assess due to current mentation Hosp A/P - Plan DVT proph w/SCDs Sepsis due to urinary tract infectionPOA Toxic metabolic encephalopathy Dementia Parkinson disease Diabetes mellitus type 2 Hypomagnesemia Anxiety History of frequent UTIs Swallow dysfunction status post PEG tube Penicillin allergy Urinary retentionpost void on 07/12 was around 600 mLrepeat 6 hours later was 150 mL Plan: Continue current antibiotics (vancomycin and cefepime). Monitor vancomycin level. Continue tube feeding. DVT prophylaxis with Lovenox. Continue carbidopa-levodopa with Namenda check KUB in a.m. to rule out impaction causing urinary retention. Recheck postvoid residual in a.m. Discontinue oxybutynin. A.m. labs. Reduce IV fluid. Replace magnesium.
[2020-07-12] MEDS ORDERED: Magnesium 2 GM/50 ML 2 GM in Premix Bag 1 BAG IVPB SCH (16:45)
[2020-07-12] MEDS: Dextrose 5 % And 0.9 % NaCl 1,000 ML IV SCH (17:23)
[2020-07-12] MEDS: Polyethylene Glycol 3350 17 GM Packet PO SCH (20:58)
[2020-07-12 22:32] LABS: Vancomycin, Trough 17.3 ug/mL
[2020-07-13] MEDS: Cefepime 2 GM in Sodium Chloride 0.9% 100 ML IVPB SCH (05:29)
[2020-07-13] MEDS: Polyethylene Glycol 3350 17 GM Packet PO SCH ×2 (07:59→20:26)
[2020-07-13] MEDS: Enoxaparin Sodium 40 MG/0.4 ML SYRINGE SC SCH (07:59)
[2020-07-13] MEDS: Carbidopa/Levodopa 25-100 mg Tablet PO SCH ×2 (07:59→20:29)
[2020-07-13] MEDS: metFORMIN 500 MG TAB PO SCH ×2 (08:00→16:23)
[2020-07-13] MEDS: Donepezil HCl 5 MG TAB PO SCH (08:00)
[2020-07-13] MEDS: Amlodipine 5 MG TAB PO SCH (08:00)
[2020-07-13] MEDS: Aspirin 81 mg Enteric Coated Tablet PO SCH (08:00)
[2020-07-13] MEDS: Saccharomyces boulardii 250 MG CAP PO SCH (08:00)
--- NOTE | 2020-07-13 08:18 | RAD ---
Radiograph abdomen one view: 07/13/2020 8:09 AM HISTORY: 75-year-old female with constipation. Rule out stool impaction. FINDINGS: There is a moderate amount of stool in the rectum, and a small amount visualized in the rest of the c olon. Large amount of bowel gas throughout the colon. No small bowel dilation. PEG tube present. IMPRESSION: 1.) Large amount of colonic gas. 2) percutaneous gastrostomy tube.
[2020-07-13] MEDS: Vancomycin 1 GM in Premix Bag 1 BAG IVPB SCH (10:42)
--- NOTE | 2020-07-13 16:10 | PDOC.HOSPP ---
- Subjective Encounter Date: 07/13/20 Encounter Time: 10:30 non-verbal Subjective: Patient seen and examined for sepsis with encephalopathy/UTI. No overnight events. Tolerating PEG tube feeding. Post void residual okay per RN. Had bowel movement. - Objective Vital Signs & Weight: Vital Signs (12 hours) Temp Pulse Resp BP Pulse Ox 07/13/20 08:00 99.8 F H 75 18 141/71 H 99 Weight Admit Weight 138 lb 6.4 oz Weight 138 lb 6.4 oz I&O: 07/12/20 07/13/20 07/14/20 06:59 06:59 06:59 Intake Total 3745 200 Output Total 1400 1000 Balance 2345 -800 Result Diagrams: 07/12/20 06:02 07/12/20 06:02 Additional Labs: Accuchecks 07/13/20 07/13/20 07/13/20 11:18 05:11 01:07 POC Glucose 136 H 108 H 176 H Abnormal Lab Results - Last 48 hrs 07/12/20 06:02: Chloride 110 H, Carbon Dioxide 19 L, Creatinine 0.58 L 07/12/20 06:02: MCHC 31.0 L, Neutrophils % (Manual) 38 L, Band Neuts % (Manual) 24 H 07/12/20 06:02: C-Reactive Protein 0.55 H Microbiology - Entire Visit 07/10/20 18:30 Urine Straight Catheter Urine Culture - Final Presumptive Carrie albicans 07/10/20 19:30 Venous blood - Left Hand Blood Culture - Preliminary Coagulase Neg Staphylococcus 07/10/20 18:59 Venous blood - Left Hand Blood Culture - Preliminary NO GROWTH AT 48 HOURS Radiology Reviewed by me: Yes (KUBmoderate amount of stool in the rectum) Hospitalist ROS - Review of Systems ROS unobtainable: due to mental status - Medication Medications: Active Medications Generic Name Dose Route Start Last Admin Trade Name Freq PRN Reason Stop Dose Admin Acetaminophen 650 mg 07/11/20 10:16 07/12/20 20:58 Acetaminophen 325 Mg Tab PO 650 mg Q4H PRN Administration Fever/Mild Pain Amlodipine Besylate 5 mg 07/12/20 09:00 07/13/20 08:00 Amlodipine 5 Mg Tab PO 5 mg DAILY CARLOS Administration Aspirin 81 mg 07/12/20 09:00 07/13/20 08:00 Aspirin 81 Mg Enteric Coated Tablet PO 81 mg DAILY CARLOS Administration Carbidopa/Levodopa 1 tab 07/11/20 21:00 07/13/20 07:59 Carbidopa/Levodopa 25-100 Mg Tablet PO 1 tab BID CARLOS Administration Donepezil HCl 5 mg 07/12/20 09:00 07/13/20 08:00 Donepezil Hcl 5 Mg Tab PO 5 mg DAILY CARLOS Administration Enoxaparin Sodium 40 mg 07/11/20 09:00 07/13/20 07:59 Enoxaparin Sodium 40 Mg/0.4 Ml Syringe SC 40 mg 0900 CARLOS Administration Cefepime HCl 2 gm/ Sodium 100 mls @ 200 mls/hr 07/11/20 06:00 07/13/20 05:29 Chloride IVPB 100 mls 0600,1800 CARLOS Administration Vancomycin HCl 1 gm/ Device 200 mls @ 200 mls/hr 07/11/20 11:00 07/13/20 10:42 IVPB 200 mls 1100,2300 CARLOS Administration Dextrose/Sodium Chloride 1,000 mls @ 30 mls/hr 07/11/20 19:16 07/12/20 17:23 D5 0.9% Ns IV Not Given .Q24H CARLOS Memantine 20 mg 07/12/20 09:00 07/13/20 08:00 Memantine Hcl 10 Mg Tab PO 20 mg DAILY CARLOS Administration Metformin HCl 500 mg 07/11/20 17:00 07/13/20 08:00 Metformin 500 Mg Tab PO 500 mg BID-WM CARLOS Administration Polyethylene Glycol 17 gm 07/12/20 21:00 07/13/20 07:59 Polyethylene Glycol 3350 17 Gm Packet PO 17 gm BID CARLOS Administration Quetiapine Fumarate 25 mg 07/11/20 21:00 07/12/20 20:58 Quetiapine Fumarate 25 Mg Tab PO 25 mg HS CARLOS Administration Saccharomyces Boulardii 250 mg 07/12/20 09:00 07/13/20 08:00 Saccharomyces Boulardii 250 Mg Cap PO 250 mg DAILY CARLOS Administration - Exam General Appearance: ill appearing Neck: supple, no JVD Heart: RRR, no gallops Respiratory: no wheezes, no ronchi Gastrointestinal: soft, no guarding, no rigidity Gastrointestinal - other findings: PEG tube Extremities: no cyanosis Hosp A/P - Plan DVT proph w/SCDs Sepsis due to urinary tract infection Toxic metabolic encephalopathy Dementia Parkinson disease Diabetes mellitus type 2 Hypomagnesemia Anxiety History of frequent UTIs Swallow dysfunction status post PEG tube Constipation Penicillin allergy Urinary retentionpost void on 07/12 was around 600 mLrepeat 6 hours later was 150 mL Plan: Discontinue IV fluids. Discontinue vancomycin. Change cefepime to oral Omnicef. Oxybutynin discontinued due to urinary retention. Continue MiraLAX. Add Senokot-S. Blood culture 1 of 2+ for coagulase-negativeprobably contaminant. Continue other medications as above. [facility]able [facility] in a.m. if stable
[2020-07-13] MEDS: Dextrose 5 % And 0.9 % NaCl 1,000 ML IV SCH (16:27)
[2020-07-13] MEDS: Senokot S 8.6-50 MG TAB PER TUBE SCH (20:26)
[2020-07-13] MEDS: Cefdinir 300 MG CAP PER TUBE SCH (20:26)
[2020-07-13] MEDS: Acetaminophen 325 MG TAB PO PRN (20:29)
[2020-07-13] MEDS ORDERED: Senokot S 8.6-50 MG TAB PER TUBE SCH (21:00)
[2020-07-14 07:00] VITALS: BP 153/76; TEMP 99.4
[2020-07-14] MEDS: metFORMIN 500 MG TAB PO SCH (08:03)
[2020-07-14] MEDS: Amlodipine 5 MG TAB PO SCH (08:03)
[2020-07-14] MEDS: Donepezil HCl 5 MG TAB PO SCH (08:03)
[2020-07-14] MEDS: Saccharomyces boulardii 250 MG CAP PO SCH (08:03)
[2020-07-14] MEDS: Senokot S 8.6-50 MG TAB PER TUBE SCH (08:03)
[2020-07-14] MEDS: Cefdinir 300 MG CAP PER TUBE SCH (08:03)
[2020-07-14] MEDS: Polyethylene Glycol 3350 17 GM Packet PO SCH (08:03)
[2020-07-14] MEDS: Aspirin 81 mg Enteric Coated Tablet PO SCH (08:03)
[2020-07-14] MEDS: Carbidopa/Levodopa 25-100 mg Tablet PO SCH (08:05)
--- NOTE | 2020-07-14 16:03 | PDOC.DS.DS ---
Provider - Provider Date of Admission: 07/10/20 22:20 Date of Discharge: 07/14/20 Admitting Provider: Joon Manning MD Consultations: None Primary Care Physician: Unknown Course - Hospital Course Hospital Course: Patient is a 75-year-old [facility] resident with dementia and recurrent UTIs was brought in with altered mentation. Patient's roommate also tested positive for COVID-19. Her work-up was consistent with sepsis due to UTI. COVID-19 testing came back negative. Urine cultures however came back negative. She will complete total of 7 days of antibiotics. She had issues with constipation that resolved. She also had transient urinary retention probably from constipation that has resolved. Oxybutynin will be held for now. Blood culture 1 of 2 was positive for coagulase-negative staph that is probably a contaminant. Final diagnosis: Sepsis due to urinary tract infection Toxic metabolic encephalopathy Dementia Parkinson disease Diabetes mellitus type 2 Hypomagnesemia Anxiety History of frequent UTIs Swallow dysfunction s/p PEG tube Constipation Penicillin allergy Transient urinary retentionresolvedoxybutynin discontinued Time in coordinating the discharge of this patient was 38 minutes. Resuscitation Status: 07/11/20 04:46 Resuscitation Status Routine Resuscitation Status: FULL: Full Resuscitation - Labs Lab Results: 07/12/20 06:02 07/12/20 06:02 Microbiology - Entire Visit 07/10/20 19:30 Venous blood - Left Hand Blood Culture - Final Coagulase Neg Staphylococcus 07/10/20 18:30 Urine Straight Catheter Urine Culture - Final Presumptive Carrie albicans 07/10/20 18:59 Venous blood - Left Hand Blood Culture - Preliminary NO GROWTH AT 48 HOURS - Physical Exam Vitals: Vital Signs (12 hours) Temp Pulse Resp BP Pulse Ox 07/14/20 08:03 77 07/14/20 08:00 97 07/14/20 06:57 99.4 F 77 17 153/76 H 97 07/14/20 04:38 98.2 F 72 16 144/63 H 96 Weight Admit Weight 138 lb 6.4 oz Weight 138 lb 6.4 oz Physical Exam: The patient was seen and examined on the day of discharge. Plan - Discharge Medications Home Medications: Medication Instructions Recorded Confirmed Type Amlodipine Besylate [amLODIPine 5 mg PO DAILY 09/15/17 07/11/20 History Besylate] metFORMIN [Glucophage] 500 mg PO BID-WM 09/15/17 07/11/20 History Donepezil HCl [Aricept] 5 mg PO DAILY tab 10/07/19 07/11/20 Rx Memantine HCl [Namenda] 20 mg PO DAILY tab 10/07/19 07/11/20 Rx Spironolactone [Aldactone] 25 mg PO QAM-WM tab 10/07/19 07/11/20 Rx Acetaminophen 650 mg Q4HR PRN 12/15/19 07/11/20 History Enoxaparin Sodium [Lovenox] 40 mg DAILY 12/15/19 07/11/20 History Arginine/Ascorbate Sod/Dipak Ac 1 packet PO BID 07/11/20 07/11/20 History [Arginaid Powder] Ascorbic Acid [Vitamin C] 1,000 mg PO DAILY 07/11/20 07/11/20 History Carbidopa/Levodopa 1 each PER TUBE BID 07/11/20 07/11/20 History [Carbidopa-Levodopa 25-100 Tab] Cholecalciferol [Vitamin D3] 1,000 unit PO DAILY 07/11/20 07/11/20 History QUEtiapine Fumarate [SEROquel] 25 mg PO BID 07/11/20 07/11/20 History Zinc 50 mg PO DAILY 07/11/20 07/11/20 History Cefdinir [Omnicef] 300 mg PER TUBE BID cap 07/14/20 Rx Polyethylene Glycol 3350 [Miralax] 17 gm PO BID #0 pk 07/14/20 Rx Saccharomyces boulardii [Florastor] 250 mg PO DAILY cap 07/14/20 Rx Sennosides/Docusate Sodium 2 tab PER TUBE BID tab 07/14/20 Rx [Senokot S] Allergies: Penicillins Allergy (Intermediate, Verified 09/29/19 00:38) Rash - Follow up Plan Referrals: Unknown,Unknown [Primary Care Provider] - Disposition: [facility] Quality - Care Measures CORE MEASURES:: N/A
--- NOTE | 2020-07-22 16:31 | EKG ---
Test Reason : Blood Pressure : / mmHG Vent. Rate : 076 BPM Atrial Rate : 076 BPM P-R Int : 130 ms QRS Dur : 068 ms QT Int : 366 ms P-R-T Axes : 037 018 020 degrees QTc Int : 411 ms Normal sinus rhythm Normal ECG Confirmed by BRENDEN GUZMAN DO ([id number]), content editor YVES MONTANEZ ([id number]) on 07/22/2020 4:31:09 PM Referred By: Confirmed By:BRENDEN GUMZAN DO
== END 2020-07-14 16:46 | DRG 871 ==
LOC: ERS 17:51 → T4-A 22:20
PROVIDERS: ADMIT Internal Medicine; ATTEND Internal Medicine
DX: A41.9 Sepsis, unspecified organism (principal); G92 Toxic encephalopathy; N39.0 Urinary tract infection, site not specified; E11.9 Type 2 diabetes mellitus without complications; I10 Essential (primary) hypertension; E83.42 Hypomagnesemia; G20 Parkinson's disease; F41.9 Anxiety disorder, unspecified; F32.9 Major depressive disorder, single episode, unspecified; F02.80 Dementia in other diseases classified elsewhere, unspecified severity, without behavioral disturbance, psychotic disturbance, mood disturbance, and anxiety; Z88.0 Allergy status to penicillin; Z79.899 Other long term (current) drug therapy; Z87.891 Personal history of nicotine dependence; Z79.82 Long term (current) use of aspirin; Z79.84 Long term (current) use of oral hypoglycemic drugs; K59.00 Constipation, unspecified; Z20.828 Contact with and (suspected) exposure to other viral communicable diseases
CPT/HCPCS: 36415; 36416; 51701; 70450; 71045; 74018; 76770; 80048; 80053; 80202; 81003; 81015; 83605; 83735; 84100; 85025; 86140; 87040; 87086; 87149; 87635; 93005; 96365; 96366; 96367; J0692; J1650; J3370; J3475; J3490; U0003

== ENCOUNTER 2020-08-29 08:35 | Inpatient (IN) | payer MEDICARE, MEDICAID ==
[2020-08-29] MEDS ORDERED: Vancomycin 1 GM/200 ML BAG ONE (09:09)
[2020-08-29] MEDS ORDERED: Cefepime 2 GM VIAL ONE ×2 (09:09→09:33)
[2020-08-29 09:21] LABS: Hemoglobin 10.9 g/dL (12.0-16.0); Mean Corpuscular HGB CONC 31.2 g/dL (32.0-36.0); Mean Corpuscular Hemoglobin 26.2 pg (27.0-31.0); Mean Platelet Volume 9.9 fL (7.4-10.4); Platelet Count 321 thou/uL (130-400); RBC Distribution Width 14.2 % (11.5-14.5); Red Blood Cell (RBC) Count 4.15 mill/uL (4.20-5.40); White Blood Cell (WBC) Count 13.9 thou/uL (4.8-10.8)
[2020-08-29 09:41] LABS: Band 15 % (5-11); Lymphocytes 13 % (21-51); MDiff Complete? YES; Monocytes 3 % (0-10); Neutrophil 69 % (42-75); Platelet Morphology Comment Appears Adequate; Polychromasia SLIGHT = 2-3 cells (100X) (0-2/hpf)
[2020-08-29 09:43] LABS: ALT (SGPT) 33 U/L (8-55); AST (SGOT) 17 U/L (5-34); Albumin 2.7 g/dL (3.4-4.8); Alkaline Phosphatase 82 U/L (40-110); Anion Gap 16 mmol/L (10-20); BUN (Urea Nitrogen) 35 mg/dL (9.8-20.1); Bilirubin, Total 0.3 mg/dL (0.2-1.2); Calc. Creatinine Clearance 0 mL/min (70-130); Calcium 8.6 mg/dL (7.8-10.44); Carbon Dioxide 25 mmol/L (23-31); Chloride 120 mmol/L (98-107); Globulin 3.6 g/dL (2.4-3.5); Glucose 403 mg/dL (83-110); Lipase 19 U/L (8-78); Magnesium 2.6 mg/dL (1.6-2.6); Potassium 4.1 mmol/L (3.5-5.1); Protein, Total 6.3 g/dL (6.0-8.3); Sodium 157 mmol/L (136-145)
--- NOTE | 2020-08-29 10:10 | RAD ---
PORTABLE CHEST: HISTORY: Fever, shortness of breath. COMPARISON: 07/10/2020. FINDINGS: Streaky atelectasis and/or infiltrate in the right medial lung base is seen today. Lungs are otherwise clear and unchanged. Vasculature normal. Heart and mediastinum unremarkable wit h aortic calcification again noted. IMPRESSION: Streaky atelectasis and/or infiltrate in the right medial lung base. POS: AGW
--- NOTE | 2020-08-29 10:27 | CT ---
CT ABDOMEN WITH CONTRAST CT PELVIS WITH CONTRAST: DATE: 08/29/2020 HISTORY: 75-year-old female with left-sided abdominal pain and fever with sepsis. COMPARISON: 12/31/2015 TECHNIQUE: IV injection of iodinated contrast media: administered. Oral contrast media:Not administered FINDINGS: The coccyx is from the distal tip of the sacrum, and is mildly displaced anteriorly relativ e to it. Previous CT did not have sagittal images, and therefore the position of the coccyx cannot be compared with the prior study. However, there is a new finding of severe thinning of the superficial soft tissues overlying the dist al sacrum and proximal coccyx, associated with another new finding of diffuse fat stranding consistent with edema, in the soft tissues surrounding the coccyx and distal sacrum, both dorsal and ventral to the bony structures. New finding of superficial soft tissue defect posterior to and abutting the dorsal surface of common the coccyx. The presacral fat stranding broadly fans out to the right and left, abutting the posterior aspect of the perirectal space. There is another new finding of stool distending the rectum, which has cross-sectional dimensions of 6.5 x 5.5 cm. The rectal wall thickness is 5 mm. The stool extends external to the anus. Moderate amount of colonic stool in the descending and sigmoid colon. No signs of colonic diverticulitis, intrapelvic abscess, ascites, pneumoperitoneum, or small bowel di lation. Normal appendix, kidneys, liver, and spleen. Atherosclerosis without aneurysm of abdominal aorta and its branches. PEG tube in stomach. Nonspecific mild patchy densities at the base of the right lower lobe: Atelectasis versus pneumonia. No pleural effusion. IMPRESSION: 1) sacrococcygeal decubitus ulcer with inflammation of soft tissues circumferentially around the cocc yx and distal sacrum, suggestive of cellulitis and possible osteomyelitis. 2) stool distended rectum, with possibility of stercoral proctitis. 3.) No abscess within abdominal cavity or pelvic cavity. 4) patchy pulmonary opacities in the right lower lobe: Pneumonia versus atelectasis. 5) percutaneous gastrostomy tube.
[2020-08-29 10:39] LABS: Actual Bicarbonate (HCO3a) 23.7 mEq/L (22-28); Analyzer IN Cardio ER; Base Excess (BEa) 0.5 mEq/L (-2.0 to +3.0); CO2 Tension 32.8 mmHg (35.0-45.0); Calcium, Ionized (arterial) 1.14 mmol/L (1.12-1.30); Carboxyhemoglobin (COHb) 0.3 gm% (0.0-3.0); Hemoglobin (Hb) 10.3 g/dL (12.0-16.0); O2 Tension (PaO2), arterial 60.1 mmHg (> 70.0); Potassium - ABG Lab 3.72 mmol/L (3.70-5.30); pH, Arterial 7.48 (7.35-7.45)
[2020-08-29] MEDS ORDERED: Bisacodyl 5 MG TAB PO PRN (11:24)
[2020-08-29] MEDS ORDERED: Acetaminophen 325 MG TAB PO PRN (11:24)
[2020-08-29] MEDS ORDERED: Senokot S 8.6-50 MG TAB PO PRN (11:24)
[2020-08-29] MEDS ORDERED: Ondansetron PF 4 MG/2 ML Vial IVP PRN (11:24)
[2020-08-29] MEDS ORDERED: Dextrose 5% in Water 1,000 ML IV PRN (11:41)
[2020-08-29] MEDS ORDERED: Dextrose 50% Abboject 50 ML SYRINGE SLOW IVP PRN (11:41)
[2020-08-29] MEDS ORDERED: Sodium Chloride 0.9% 1,000 ML IV SCH ×2 (11:45→13:15)
[2020-08-29 12:42] LABS: Lactic Acid 3.7 mmol/L (0.5-2.2)
[2020-08-29] MEDS ORDERED: Morphine 4 MG/ML VIAL ONE (13:01)
[2020-08-29 13:02] LABS: SARS-CoV-2 NAA Rapid Test Not Detected (NotDetected)
[2020-08-29] MEDS ORDERED: Iopamidol-370 76% 500 ML 1 ML ONE (13:17)
[2020-08-29 13:46] LABS: Bilirubin Negative (Negative); Blood, Urine Small (Negative); Glucose, Urine (Dipstick) >=1000 mg/dL (Negative); Ketone, Urine Negative (Negative); Leukocyte Negative (Negative); Nitrite Negative (Negative); Protein, Urine (Dipstick) Negative (Neg-Trace); Urobilinogen 0.2 mg/dL (Less than 2)
[2020-08-29 13:49] LABS: Clarity Clear (Clear)
[2020-08-29 13:51] LABS: Other Microscopic Description Less than 2 mL rec'd
[2020-08-29 13:52] LABS: Bacteria/HPF None Seen HPF (None Seen); RBC/HPF 0-3 HPF (0-3); Squamous Epithelial 0-3 HPF (0-3); WBC/HPF 0-3 HPF (0-3)
[2020-08-29] MEDS ORDERED: Heparin 1,000 UNITS/ML VIAL ONE (15:11)
--- NOTE | 2020-08-29 15:33 | HP ---
CHIEF COMPLAINT: Respiratory failure. HISTORY OF PRESENT ILLNESS: The patient is 75-year-old female, who initially was brought into the hospital for tachypnea and low oxygen saturations per the jail. I did call [facility], who stated that the patient's oxygen saturations last night were around 88% and this morning was 82%. She appeared to be more tachypneic. At baseline, the patient does not follow commands, however, she will say one words and she will look at you when you do things with her and also she responds to painful stimulation. However, this morning, she was doing none of those things. At this time, EMS was called and the patient was brought into the hospital. In the ED, the patient did have a CT of abdomen and pelvis, which indicated significant sacral wounds, most likely decubitus, concern for possible cellulitis and osteomyelitis and that is why she was admitted to the hospital. Past medical history, all of this is from the notes since the patient is unable to provide any history. PAST MEDICAL HISTORY: She has history of Parkinson's. She has dementia, hypertension, diabetes, and frequent UTIs. SOCIAL HISTORY: She is a jail resident per the records that I reviewed. No history of smoking or alcohol use or drug use. She is currently a full code. ALLERGIES: ALLERGIC TO PENICILLIN, BUT AGAIN SHE CAN TOLERATE CEPHALOSPORINS. SHE DID RECEIVE CEPHALOSPORINS IN THE ER. REVIEW OF SYSTEMS: Unable to obtain. FAMILY HISTORY: Again per the notes, no significant family history. PHYSICAL EXAMINATION: VITAL SIGNS: Temperature of 98.7, blood pressure 117/45, pulse 69, respiratory rate 17, and oxygen saturation 97% on room air. GENERAL: She is awake. She does moan on stimulation; however, she does not follow any commands. CV: S1 and S2 present. No murmurs, rubs, or gallops. LUNGS: Clear to auscultation. No rhonchi or wheezes noted. ABDOMEN: Soft and nontender. Bowel sounds are present x2. She does have a PEG tube. EXTREMITIES: She has 1 to 2+ lower extremity pitting edema. NEURO: She is unable to move any extremity on command. She has some upper extremity contraction and some muscle wasting is noted. SKIN: She has decubitus ulcer to her sacrum area. LABORATORY RESULTS: As of the following; WBCs of 13.9, hemoglobin of 10.9, hematocrit of 34.8, and platelets of 321. Chemistries; sodium of 157, potassium 4.1, BUN of 35, and creatinine of 0.81. Her lactic acid was 2.8. Her CRP was 7. Her BNP was 146, and her serum osmolality was 353. Her urine did not show any acute abnormalities. She did have a chest x-ray, which indicated possible right lower streaky atelectasis or infiltrate in the right medial lung base. She also had a CT of abdomen and pelvis which indicated sacrococcygeal decubitus also with inflammation of the soft tissue circumferentially around the coccyx and distal sacrum suggestive of cellulitis and possible osteomyelitis. Stool distention in the rectum, possibly . No abscess noted. Patchy pulmonary opacities in the right lower lung, pneumonia versus atelectasis. ASSESSMENT AND PLAN: The patient is a 75-year-old female, who presents to the hospital with acute hypoxic respiratory failure. 1. Acute hypoxic respiratory failure. She was noted to have saturations of 88 at the jail yesterday and 82% today and that is the reason she was transferred here. However, here she has been 95% and 96% on room air. Chest x-ray again shows some possible pneumonia versus atelectasis. She does have some bandemia. I will start her on antibiotics that will cover her sacrum wound and also her lungs. I will do anaerobic coverage also for possible aspiration. 2. Sepsis, most likely secondary due to cellulitis on her decubitus versus aspiration pneumonia. We will continue the broad-spectrum antibiotics and we will continue to monitor. 3. Decubitus. Since she has a significant decubitus ulcer, we will get Wound Care to see this patient. We will get Infectious Disease to see this patient. She may require an MRI for further evaluation. I have started her on vancomycin and cefepime. I will also add some Flagyl for anaerobic coverage and then will go from there. 4. Deep venous thrombosis prophylaxis. We will put the patient on subcu Lovenox. 5. Leukocytosis with bandemia. Again, this is most likely secondary to her underlying infection. We will continue to monitor. 6. Lactic acidosis. Again, we will start her on some gentle hydration and continue to monitor her slowly. 7. Hyponatremia. She appears to be dehydrated. We will start her on some free water and also I will give her some half-normal saline. Job ID: [id number]
[2020-08-29 15:43] LABS: Bilirubin Negative (Negative); Blood, Urine Negative (Negative); Clarity Clear (Clear); Glucose, Urine (Dipstick) Greater than 1000 mg/dL (Negative); Ketone, Urine Negative (Negative); Leukocyte Negative Leu/uL (Negative); Nitrite Negative (Negative); Protein, Urine (Dipstick) 30 mg/dL (Neg-Trace); RBC/HPF 0-3 HPF (0-3); Specific Gravity, Urine 1.036 (1.002-1.036); Squamous Epithelial None Seen HPF (0-3); Urobilinogen Normal mg/dL (Less than 2); Yeast-Hyphae Rare HPF (None Seen); pH, Urine 6.5 (5.0-9.0)
[2020-08-29 15:50] LABS: Bacteria/HPF None Seen HPF (None Seen)
[2020-08-29] MEDS: metroNIDAZOLE 500 MG in Premix Bag 1 BAG IVPB SCH ×2 (17:26→23:50)
[2020-08-29 19:54] VITALS: BMI 23.3
[2020-08-29] MEDS: Cefepime 2 GM in Sodium Chloride 0.9% 100 ML IVPB SCH (21:31)
[2020-08-30 07:18] LABS: #Eosinphils 0.1 thou/uL (0.0-0.7); #Lymphocytes 1.1 thou/uL (1.20-3.40); #Monocytes 0.3 thou/uL (0.11-0.59); #Neutrophils 10.5 thou/uL (1.40-6.50); %Basophils 0.3 % (0.0-1.0); %Eosinophils 0.6 % (0.0-10.0); %Lymphocytes 9.1 % (21.0-51.0); %Monocytes 2.7 % (0.0-10.0); %Neutrophils 87.3 % (42.0-75.0); Hemoglobin 9.3 g/dL (12.0-16.0); Mean Corpuscular HGB CONC 30.6 g/dL (32.0-36.0); Mean Corpuscular Hemoglobin 26.2 pg (27.0-31.0); Mean Corpuscular Volume 85.6 fL (78.0-98.0); Platelet Count 248 thou/uL (130-400); Red Blood Cell (RBC) Count 3.55 mill/uL (4.20-5.40); White Blood Cell (WBC) Count 12.1 thou/uL (4.8-10.8)
[2020-08-30 07:29] LABS: Anion Gap 13 mmol/L (10-20); BUN (Urea Nitrogen) 27 mg/dL (9.8-20.1); Calc. Creatinine Clearance 80 mL/min (70-130); Calcium 7.9 mg/dL (7.8-10.44); Carbon Dioxide 24 mmol/L (23-31); Chloride 125 mmol/L (98-107); Glucose 258 mg/dL (83-110); Potassium 3.5 mmol/L (3.5-5.1); Sodium 158 mmol/L (136-145)
[2020-08-30] MEDS: metroNIDAZOLE 500 MG in Premix Bag 1 BAG IVPB SCH ×3 (08:30→23:15)
[2020-08-30] MEDS: Enoxaparin Sodium 40 MG/0.4 ML SYRINGE SC SCH (08:30)
[2020-08-30] MEDS: Cefepime 2 GM in Sodium Chloride 0.9% 100 ML IVPB SCH ×2 (08:33→20:21)
[2020-08-30] MEDS ORDERED: Vancomycin 1.5 GRAM/300 ML BAG 1.5 GM in Premix Bag 1 BAG IVPB SCH (09:00)
[2020-08-30] MEDS: Vancomycin HCl 1.25 GM in Sodium Chloride 0.9% 250 ML 250 ML IVPB SCH (09:30)
[2020-08-30] MEDS: HumaLOG 300 UNITS/3 ML VIAL SC PRN (10:51)
--- NOTE | 2020-08-30 14:27 | PDOC.HOSPP ---
- Subjective Encounter Date: 08/30/20 Encounter Time: 11:15 Subjective: is awake, non verbal, not in distress - Objective Vital Signs & Weight: Vital Signs (12 hours) Temp Pulse Resp BP Pulse Ox 08/30/20 12:12 97.4 F L 62 20 118/60 96 08/30/20 08:11 97.4 F L 65 16 126/79 96 08/30/20 03:10 97.4 F L 64 20 122/76 97 Weight Admit Weight 136 lb 3.2 oz Weight 136 lb 3.225 oz I&O: 08/29/20 08/30/20 08/31/20 06:59 06:59 06:59 Intake Total 200 Output Total 400 Balance -200 Result Diagrams: 08/30/20 06:47 08/30/20 06:47 Additional Labs: Accuchecks 08/30/20 08/30/20 08/29/20 09:47 03:19 23:13 POC Glucose 225 H 246 H 276 H 08/29/20 21:05 POC Glucose 290 H Hospitalist ROS - Medication Medications: Active Medications Generic Name Dose Route Start Last Admin Trade Name Freq PRN Reason Stop Dose Admin Enoxaparin Sodium 40 mg 08/30/20 09:00 08/30/20 08:30 Enoxaparin Sodium 40 Mg/0.4 Ml Syringe SC 40 mg 0900 CARLOS Administration Cefepime HCl 2 gm/ Sodium 100 mls @ 200 mls/hr 08/29/20 21:00 08/30/20 08:33 Chloride IVPB 100 mls Q12HR CARLOS Administration Metronidazole 500 mg/ Device 100 mls @ 100 mls/hr 08/29/20 16:00 08/30/20 08:30 IVPB 100 mls 0000,0800,1600 CARLOS Administration Vancomycin HCl 1.25 gm/ Sodium 250 mls @ 166.667 mls/hr 08/30/20 10:00 09:30 Chloride IVPB 250 mls 1000 CARLOS Administration Insulin Human Lispro 0 units 08/29/20 11:41 08/30/20 10:51 Humalog 300 Units/3 Ml Vial SC 3 unit .MILD SLIDING SCALE PRN Administration Mild Correctional Scale - Exam General Appearance: ill appearing Eye: PERRL, anicteric sclera ENT: no oropharyngeal lesions, dry oral mucosa Neck: supple, no JVD Heart: RRR, no murmur Respiratory: no wheezes, no rales, rhonchi Gastrointestinal: soft, non-distended, normal bowel sounds Gastrointestinal - other findings: peg+ Extremities: no cyanosis, no edema Neurological - other findings: has flexion contractures of upper extremity, aphasia, not oriented Hosp A/P (1) Osteomyelitis of sacrum Code(s): M46.28 - OSTEOMYELITIS OF VERTEBRA, SACRAL AND SACROCOCCYGEAL REGION Status: Acute (2) Severe dehydration Code(s): E86.0 - DEHYDRATION Status: Acute (3) Sacral decubitus ulcer, stage IV Code(s): L89.154 - PRESSURE ULCER OF SACRAL REGION, STAGE 4 Status: Acute (4) FTT (failure to thrive) in adult Status: Chronic (5) Severe protein-calorie malnutrition Code(s): E43 - UNSPECIFIED SEVERE PROTEIN-CALORIE MALNUTRITION Status: Acute (6) Aspiration pneumonia Code(s): J69.0 - PNEUMONITIS DUE TO INHALATION OF FOOD AND VOMIT Status: Acute Qualifiers: Aspiration pneumonia type: due to regurgitated food (7) Sepsis Code(s): A41.9 - SEPSIS, UNSPECIFIED ORGANISM Status: Acute Qualifiers: Sepsis type: sepsis due to unspecified organism Sepsis acute organ dysfunction status: without acute organ dysfunction Qualified Code(s): A41.9 - Sepsis, unspecified organism (8) Acute metabolic encephalopathy Code(s): G93.41 - METABOLIC ENCEPHALOPATHY Status: Acute (9) Hypernatremia Code(s): E87.0 - HYPEROSMOLALITY AND HYPERNATREMIA Status: Acute (10) Anxiety and depression Code(s): F41.8 - OTHER SPECIFIED ANXIETY DISORDERS Status: Chronic (11) Dementia Code(s): F03.90 - UNSPECIFIED DEMENTIA WITHOUT BEHAVIORAL DISTURBANCE Status: Chronic Qualifiers: Dementia type: Lewy body dementia (12) Diabetes type 2, controlled Code(s): E11.9 - TYPE 2 DIABETES MELLITUS WITHOUT COMPLICATIONS Status: Chronic Qualifiers: Diabetes mellitus [facility] insulin use: without door frame assembler machine use (13) Hypertension Code(s): I10 - ESSENTIAL (PRIMARY) HYPERTENSION Status: Chronic Qualifiers: (14) Parkinson disease Code(s): G20 - PARKINSON'S DISEASE Status: Chronic - Plan has multiple med issues with very poor prognosis gentle iv hydration, wound care, cefepime, vanc and flagyl d/w daughter Ms.Michelle Sandy [phone], gave full updates and poor [facility] prognosis she wants her to be full code for now, she may visit her when she can drive from [place] (its snowing there now) pt is hospice appropriate if family agrees to alternate glucerna 1 can qid with 200ml free water qid.
[2020-08-30] MEDS ORDERED: Sodium Chloride 0.45% 1,000 ML IV SCH (14:45)
--- NOTE | 2020-08-30 15:15 | CON ---
DATE OF CONSULTATION: REASON FOR CONSULTATION: Presacral decubitus ulcer stage IV. HISTORY OF PRESENT ILLNESS: A 75-year-old patient who I have seen in the beginning of this year when she presented with a history of Lewy body dementia and striatonigral degeneration. Had been on treatment before and has had progression of her disease. When I saw her, she had been able to walk, but there was worsening of her functional state. She was admitted and we thought that the deterioration is most likely due to progression of her chronic degenerative disease. In the meantime, she has been transferred to a intermediate and she was seen again in December 2019 with hypernatremia, UTI, mild lactic acidosis, hypertension, and she was discharged on Norvasc, metformin, oxybutynin, aspirin, Sinemet, donepezil, memantine. The next admission was on July 14, 2020, and she received a diagnosis of sepsis, toxic metabolic encephalopathy, dementia, urinary retention. Oxybutynin was discontinued. So now she presents with a very large stage IV decubitus ulcer which developed unfortunately. The main reason for presentation was respiratory symptoms with fever, diaphoresis, and the wound was discovered after she was admitted to the emergency room. Initial findings, BP 130/66, heart rate 80, temperature 98.6, O2 saturation 94. She was diaphoretic, chronically ill appearing, unable to interact with examiner. There was tenderness in the left lower quadrant. There was a large presacral decubitus ulcer with bone exposure. She had an abdomen and pelvis CT which demonstrated sacral coccygeal DU with inflammation of soft tissues around the coccyx and distal sacrum, possible osteomyelitis, stool distended rectum, stercoral proctitis, patchy pulmonary opacities in the right lower lobe, and a percutaneous gastrostomy tube. Other findings on admission, white cell count 13.9, hemoglobin 10.9, platelets 321 with 15% bands. PH 7.48, pCO2 of 32, PO2 of 60. Sodium 157, creatinine 0.81, glucose 403. Liver profile normal. CRP 7.52 and BNP was 146. Albumin 2.7, globulin 3.6. Urinalysis was normal. SARS-CoV2 PCR not detected on August 29. Influenza negative. In terms of cultures, we have 2 sets of blood cultures, preliminary information negative thus far and urine culture no growth 24 hours. There was a chest x-ray on admission as well, which showed streaky atelectasis. Currently, Ms. Savage is in the 3rd floor. I believe she has a do not resuscitate advance directive. She does not establish eye contact, does not move much. Her eyes are open, stares at a distance. Has not had diarrhea yet. PAST MEDICAL HISTORY: Dementia with Lewy body and parkinsonian features as well, type 2 diabetes, urinary tract infections, hypertension. SOCIAL HISTORY: Transferred recently to [facility]. Former smoker, quit in 75. ALLERGIES: PENICILLIN WITH RASH. FAMILY HISTORY: Type 2 diabetes. CURRENT MEDICATIONS: 1. Cefepime. 2. Dextrose. 3. Flagyl. 4. Vancomycin. PHYSICAL EXAMINATION: VITAL SIGNS: Temperature has been normal since admission, blood pressure 118/60, heart rate 62, respiratory rate 20, O2 saturation 96%. SKIN: Shows a stage IV large sacral decubitus ulcer. There is kind of a dark grayish tissue at the base covering the coccyx and sacrum and there is a very deep area of ulceration with necrotic margins in some parts of the edges. A little bit of erythema mostly around 12 to 2 o'clock. GENERAL: The patient is diffusely stiff. She does not interact with the examiner. HEENT: Pupils are constricted. She has a lot of debris in the oral cavity with very desiccated teeth enamel. NECK: No jugular vein distention. LUNGS: Symmetric air entry with faint basilar crackles on the right side. HEART: S1, S2, regular rate with soft aortic murmur. ABDOMEN: Bhat, not distended. Gastrostomy tube in place with normal-appearing exit site. Has an indwelling Ramírez catheter which was inserted upon admission, I believe, and she has a peripheral IV access. Diffuse stiffness. EXTREMITIES: I cannot elicit any motion in her extremities. She has no edema. Pulses are 1+ in dorsalis pedis. Plantar responses are upgoing. NEUROLOGIC: She stares at a distance, does not interact with the examiner. I could not hear any sounds. Does not follow commands. LABORATORY DATA: Followup labs, white cell count 12.1, hemoglobin 9.3, platelets 248. The last creatinine was 0.59. Sodium 158. ASSESSMENT: Dementia with Lewy body plus Parkinson's and progressive deterioration over the past few months. Now, she has developed this complication with a very severe stage IV ulceration in the presacral region with cellulitis, may have early osteomyelitis as well. The periosteum seems to be intact in most of the exposed area of the sacral coccygeal region. She also may have aspiration pneumonia on top of that. Dementia with Lewy body is a progressive disease. The duration is variable anywhere from 2 to 20 years until the time of , but usually when the patient starts to deteriorate, the progression happens quickly. So I suspect that she does not have many months left in her lifespan. At this point, I would encourage palliative care rather than aggressive interventions. I do not think she would benefit from aggressive interventions at this point in time. I guess you could give her a short term course of antimicrobial therapy, but putting a PICC line and giving her long-term IV antimicrobial therapy would not be recommended since I think it would be associated with adverse consequences than true benefit. Job ID: [id number] JEANNE
[2020-08-30] MEDS: Dextrose 5% in Water 1,000 ML IV SCH (17:30)
[2020-08-30] MEDS ORDERED: FLU VACC QS2020-21(65YR UP)/PF 240 MCG/0.7 ML SYRINGE IM ONE (21:00)
--- NOTE | 2020-08-30 23:20 | CON ---
DATE OF CONSULTATION: 08/30/2020 SERVICE: Nephrology. REASON FOR CONSULTATION: Hypernatremia. REQUESTING PROVIDER: Dr. Rosette Pizarro. HISTORY OF PRESENT ILLNESS: A 75-year-old female with known history of Lewy body dementia with chronic debilitation and senior care resident, who was admitted due to mental status change of decreased responsiveness as well as hypoxia. The patient was tachycardic on presentation, was thought to have sacral decubitus ulcer and possible UTI associated with sepsis and was started on broad-spectrum antibiotics and IV fluid. She, however, was noted to have hypernatremia of 157 on presentation, which got worse to 158, hence Nephrology consult. Note that the above history was obtained from review of medical record that this patient is currently nonverbal. PAST MEDICAL HISTORY: 1. Dementia with Lewy body. 2. Parkinsonism. 3. Chronic debilitation. 4. Type 2 diabetes. 5. Urinary tract infections. 6. Hypertension. PAST SURGICAL HISTORY: Unknown. FAMILY HISTORY: Cannot be obtained due to the patient's condition. SOCIAL HISTORY: The patient is a senior care resident. There was no history of smoking, alcohol, or recreational drug use. ALLERGIES: PENICILLIN. MEDICATIONS: Prior to hospital medications are as follows: 1. Lovenox 40 mg daily. 2. Aricept 5 mg daily. 3. Oxybutynin 5 mg daily. 4. Amlodipine 5 mg daily. 5. Spironolactone 25 mg daily. 6. Carbidopa/levodopa 25/100. 7. Insulin subcutaneously per sliding scale. 8. Metformin 500 mg b.i.d. 9. Aspirin 81 mg daily. 10. Seroquel 25 mg. 11. Memantine 10 mg. 12. Acetaminophen p.r.n. Current hospital medications are as follows; 1. Sodium chloride infusion half-normal saline at 100 mL/h. 2. Cefepime 2 g every 12 hours. 3. Metronidazole 500 mg t.i.d. 4. Vancomycin 1.25 g daily. 5. Lovenox 40 mg daily. 6. Sliding scale insulin. REVIEW OF SYSTEMS: Could not be performed due to the patient's condition. PHYSICAL EXAMINATION: VITAL SIGNS: Temperature 97.4, pulse 73, respiratory rate 20, SpO2 of 97% on room air, blood pressure is 131/64. GENERAL: Chronically ill-looking elderly female in no obvious distress. The patient is awake, but nonconversational. HEENT: Normocephalic with marked alopecia. Oral mucosa is dry. NECK: Symmetrical. CARDIOVASCULAR: Regular rhythm and rate with normal heart sounds 1 and 2. RESPIRATORY: Good air entry with few transmitted breath sounds. No obvious crackle or rhonchi or use of accessory muscles appreciated. GI: Abdomen is full, soft, nontender with normal bowel sounds. PEG tube noted. EXTREMITIES: Mild edema of the lower extremities noted. Bilateral footdrop also noted. PHOTOGRAPHY SPOTTER: The patient is awake, but not-conversational. She also does not obey commands. SKIN: Decubitus ulcer of the sacral area with dressing noted. DIAGNOSTIC DATA: CBC earlier today showed WBC count of 12.1, hemoglobin of 9.3, MCV of 85.6, and platelet of 248. On presentation yesterday, WBC was 13.9, hemoglobin 10.9. Arterial blood gas performed on presentation showed pH of 7.48, pCO2 of 32.8, and PO2 of 60 with ionized calcium of 1.14. Chemistry earlier today showed sodium 158, potassium 3.5, chloride 125, CO2 of 24, BUN 27, creatinine 0.59, glucose 258, calcium 7.9. On presentation, however, the patient had sodium of 157, potassium of 4.1, chloride of 120, CO2 25, BUN 35, creatinine 0.81, glucose 403. LFTs were unremarkable. Total protein was 6.3 and albumin 2.7. Urinalysis on presentation showed yellow clear urine with pH of 6.5, specific gravity of 1.036, positive protein. Glucose markedly elevated greater than 1000, negative ketone, blood, nitrite, bilirubin, leukocyte esterase. Microscopy showed 0 to 3 rbc and 11 to 20 wbc with no bacteria seen. ASSESSMENT: 1. Hypernatremia: This is due to free water deficit. The patient has been getting intravenous fluids since admission. 2. Presumed sepsis from sacral decubitus ulcer and urinary tract infection. Osteomyelitis also should be considered. 3. Dementia with Lewy body as well as Parkinson's. 4. Chronic debilitation. 5. Dysphagia, on trach tube. PLAN: We will substitute half-normal saline with dextrose water. We will recheck electrolytes in the morning. Diuretic therapy with thiazide type diuretics is considered and contemplated in view of hypernatremia and some fluid overload. Antibiotics as per Infectious Disease. Many thanks for involving us in the care of this patient. We will follow along with you. Job ID: [id number]
[2020-08-31] MEDS: Dextrose 5% in Water 1,000 ML IV SCH ×2 (05:28→12:14)
[2020-08-31] MEDS: Enoxaparin Sodium 40 MG/0.4 ML SYRINGE SC SCH (08:19)
[2020-08-31] MEDS: metroNIDAZOLE 500 MG in Premix Bag 1 BAG IVPB SCH ×2 (08:23→16:02)
[2020-08-31] MEDS: Cefepime 2 GM in Sodium Chloride 0.9% 100 ML IVPB SCH ×2 (08:37→21:56)
[2020-08-31 09:55] LABS: Vancomycin, Trough 8.3 ug/mL
--- NOTE | 2020-08-31 09:55 | CON ---
DATE OF CONSULTATION: 08/31/2020 CHIEF COMPLAINT: Decubitus wound. HISTORY OF PRESENT ILLNESS: This is a 75-year-old female with dementia who is a [facility] resident. She presents with a history of fever, UTI, possible pneumonia. She was found to have sacral decubitus wound. I was consulted for the sacral decubitus wound. CT scan shows it to be a stage IV. PAST MEDICAL HISTORY: Includes Lewy body dementia, Parkinson disease, type 2 diabetes, UTI, hypertension. SURGICAL HISTORY: Unknown. SOCIAL HISTORY: Former smoker. long-term resident. ALLERGIES: PENICILLIN. REVIEW OF SYSTEMS: Otherwise unable to obtain. PHYSICAL EXAMINATION: VITAL SIGNS: Her pulse is 60, respirations 18. She is afebrile. CHEST: Coarse breath sounds. HEART: Regular rate. ABDOMEN: Soft, nontender. Her sacral decubitus wound is dressed. There is no purulence. LABORATORY DATA: White blood cell count yesterday was 12, hemoglobin is 9.3. Creatinine was 0.59 yesterday, sodium of 158. On admission, her COVID was negative. CT scan on 08/29 showed sacral decubitus ulcer, soft tissue inflammatory change, possible osteomyelitis. ASSESSMENT: Likely stage IV sacral decubitus wound with underlying osteomyelitis. Very poor prognosis, not able to be off this wound. PLAN: The only treatment would be large incision significant debridement with ongoing significant wound care needs in the future. I would recommend not being aggressive, not treating this surgically, treat with antibiotics. Comfort measures only. We will discuss with family. Job ID: [id number]
[2020-08-31] MEDS: Vancomycin HCl 1.25 GM in Sodium Chloride 0.9% 250 ML 250 ML IVPB SCH (10:49)
[2020-08-31] MEDS ORDERED: Vancomycin 1.5 GRAM/300 ML BAG 1.5 GM in Premix Bag 1 BAG IVPB SCH (11:00)
[2020-08-31] MEDS: Vancomycin HCl 1.75 GM in Sodium Chloride 0.9% 500 ML IVPB SCH (12:12)
[2020-08-31 14:05] LABS: Anion Gap 12 mmol/L (10-20); BUN (Urea Nitrogen) 18 mg/dL (9.8-20.1); Calc. Creatinine Clearance 79 mL/min (70-130); Calcium 7.9 mg/dL (7.8-10.44); Carbon Dioxide 24 mmol/L (23-31); Chloride 115 mmol/L (98-107); Glucose 291 mg/dL (83-110); Sodium 148 mmol/L (136-145)
[2020-08-31] MEDS ORDERED: Dextrose 5% in Water 1,000 ML IV SCH (14:07)
--- NOTE | 2020-08-31 14:13 | PDOC.HOSPP ---
- Subjective Encounter Date: 08/31/20 Encounter Time: 12:15 Subjective: is more awake and tries to talk but are not legible daughter at bedside - Objective Vital Signs & Weight: Vital Signs (12 hours) Temp Pulse Resp BP Pulse Ox 08/31/20 11:05 97.9 F 60 16 145/82 H 99 08/31/20 08:06 97.4 F L 60 18 144/91 H 100 08/31/20 03:11 97.3 F L 60 20 138/81 93 L Weight Admit Weight 136 lb 3.2 oz Weight 136 lb 3.225 oz I&O: 08/30/20 08/31/20 09/01/20 06:59 06:59 06:59 Intake Total 200 2200 Output Total 400 950 Balance -200 1250 Result Diagrams: 08/30/20 06:47 08/31/20 13:30 Additional Labs: Accuchecks 08/31/20 08/31/20 08/30/20 11:00 03:14 23:15 POC Glucose 304 H 272 H 230 H 08/30/20 08/30/20 19:28 14:22 POC Glucose 183 H 160 H Hospitalist ROS - Medication Medications: Active Medications Generic Name Dose Route Start Last Admin Trade Name Freq PRN Reason Stop Dose Admin Enoxaparin Sodium 40 mg 08/30/20 09:00 08/31/20 08:19 Enoxaparin Sodium 40 Mg/0.4 Ml Syringe SC 40 mg 0900 CARLOS Administration Cefepime HCl 2 gm/ Sodium 100 mls @ 200 mls/hr 08/29/20 21:00 08/31/20 08:37 Chloride IVPB 100 mls Q12HR CARLOS Administration Metronidazole 500 mg/ Device 100 mls @ 100 mls/hr 08/29/20 16:00 08/31/20 08:23 IVPB 100 mls 0000,0800,1600 CARLOS Administration Vancomycin HCl 1.75 gm/ Sodium 500 mls @ 250 mls/hr 08/31/20 11:00 08/31/20 12:12 Chloride IVPB 500 mls 1100 CARLOS Administration Insulin Human Lispro 0 units 08/29/20 11:41 08/30/20 10:51 Humalog 300 Units/3 Ml Vial SC 3 unit .MILD SLIDING SCALE PRN Administration Mild Correctional Scale - Exam General Appearance: ill appearing Eye: PERRL, anicteric sclera ENT: no oropharyngeal lesions, dry oral mucosa Neck: supple, no JVD Heart: RRR, no murmur Respiratory: no wheezes, no rales, rhonchi Gastrointestinal: soft, non-tender, non-distended, normal bowel sounds Gastrointestinal - other findings: peg+, large sacral decub Extremities: no cyanosis, no edema Neurological - other findings: has contractures of all 4 extre, foot drop Hosp A/P (1) Osteomyelitis of sacrum Code(s): M46.28 - OSTEOMYELITIS OF VERTEBRA, SACRAL AND SACROCOCCYGEAL REGION Status: Acute (2) Severe dehydration Code(s): E86.0 - DEHYDRATION Status: Acute (3) Sacral decubitus ulcer, stage IV Code(s): L89.154 - PRESSURE ULCER OF SACRAL REGION, STAGE 4 Status: Acute (4) FTT (failure to thrive) in adult Status: Chronic (5) Severe protein-calorie malnutrition Code(s): E43 - UNSPECIFIED SEVERE PROTEIN-CALORIE MALNUTRITION Status: Acute (6) Aspiration pneumonia Code(s): J69.0 - PNEUMONITIS DUE TO INHALATION OF FOOD AND VOMIT Status: Acute Qualifiers: Aspiration pneumonia type: due to regurgitated food (7) Sepsis Code(s): A41.9 - SEPSIS, UNSPECIFIED ORGANISM Status: Acute Qualifiers: Sepsis type: sepsis due to unspecified organism Sepsis acute organ dysfunction status: without acute organ dysfunction Qualified Code(s): A41.9 - Sepsis, unspecified organism (8) Acute metabolic encephalopathy Code(s): G93.41 - METABOLIC ENCEPHALOPATHY Status: Acute (9) Hypernatremia Code(s): E87.0 - HYPEROSMOLALITY AND HYPERNATREMIA Status: Acute (10) Anxiety and depression Code(s): F41.8 - OTHER SPECIFIED ANXIETY DISORDERS Status: Chronic (11) Dementia Code(s): F03.90 - UNSPECIFIED DEMENTIA WITHOUT BEHAVIORAL DISTURBANCE Status: Chronic Qualifiers: Dementia type: Lewy body dementia (12) Diabetes type 2, controlled Code(s): E11.9 - TYPE 2 DIABETES MELLITUS WITHOUT COMPLICATIONS Status: Chronic Qualifiers: Diabetes mellitus longterm insulin use: without filler leaf cutter long use (13) Hypertension Code(s): I10 - ESSENTIAL (PRIMARY) HYPERTENSION Status: Chronic Qualifiers: (14) Parkinson disease Code(s): G20 - PARKINSON'S DISEASE Status: Chronic - Plan has multiple med issues with very poor prognosis gentle iv hydration, wound care, cefepime, vanc and flagyl d/w daughter Ms.Michelle Sandy [phone], gave full updates and poor longterm prognosis, and at bedside 08/31. she wants her to be full code for now and wants ltac eval pt is hospice appropriate if family agrees to alternate glucerna 1 can qid with 200ml free water qid. CM for ltac eval will get picc line for ertapenem iv x 3 weeks, wound vac will be placed, d/w and . add lantus for dm uncontrolled, decrease d5w to 50mls/hr, plan is to increase free water via peg if her residuals are good, d/w .
[2020-08-31 14:14] LABS: Potassium 2.9 mmol/L (3.5-5.1)
--- NOTE | 2020-08-31 16:21 | PDOC.NEPPN ---
- Subjective Encounter Date: 08/31/20 Subjective: Seen in follow up for hyponatremia. No new problem. Remained non conversational. - Objective Vital Signs & Weight: Vital Signs (12 hours) Temp Pulse Resp BP Pulse Ox 08/31/20 11:05 97.9 F 60 16 145/82 H 99 08/31/20 08:06 97.4 F L 60 18 144/91 H 100 Weight Admit Weight 136 lb 3.2 oz Weight 136 lb 3.225 oz I&O: 08/30/20 08/31/20 09/01/20 06:59 06:59 06:59 Intake Total 200 2200 Output Total 400 950 Balance -200 1250 Result Diagrams: 08/30/20 06:47 08/31/20 13:30 Additional Labs: Accuchecks 08/31/20 08/31/20 08/31/20 15:38 11:00 03:14 POC Glucose 248 H 304 H 272 H 08/30/20 08/30/20 23:15 19:28 POC Glucose 230 H 183 H Nephrology ROS - Medication Medications: Active Medications Generic Name Dose Route Start Last Admin Trade Name Freq PRN Reason Stop Dose Admin Enoxaparin Sodium 40 mg 08/30/20 09:00 08/31/20 08:19 Enoxaparin Sodium 40 Mg/0.4 Ml Syringe SC 40 mg 0900 CARLOS Administration Cefepime HCl 2 gm/ Sodium 100 mls @ 200 mls/hr 08/29/20 21:00 08/31/20 08:37 Chloride IVPB 100 mls Q12HR CARLOS Administration Metronidazole 500 mg/ Device 100 mls @ 100 mls/hr 08/29/20 16:00 08/31/20 16:02 IVPB 100 mls 0000,0800,1600 CARLOS Administration Vancomycin HCl 1.75 gm/ Sodium 500 mls @ 250 mls/hr 08/31/20 11:00 08/31/20 12:12 Chloride IVPB 500 mls 1100 CARLOS Administration Dextrose/Water 1,000 mls @ 50 mls/hr 08/31/20 14:07 08/31/20 16:03 D5w IV 1,000 mls .Q20H CARLOS Administration Insulin Human Lispro 0 units 08/29/20 11:41 08/30/20 10:51 Humalog 300 Units/3 Ml Vial SC 3 unit .MILD SLIDING SCALE PRN Administration Mild Correctional Scale Potassium Chloride 40 meq 08/31/20 15:30 08/31/20 16:04 Potassium Chloride 20 Meq Packet PO 09/01/20 03:31 40 meq Q6H CARLOS Administration - Exam General - other findings: awake but non conversational Eye: anicteric sclera ENT: normocephalic atraumatic Neck: symmetric Respiratory - other findings: fair air entry bilaterally Cardiovascular: RRR Gastrointestinal: soft, non-tender, non-distended, normal bowel sounds Gastrointestinal - other findings: PEG tube noted Extremities: no edema Extremities - other findings: bilateral foot drop noted Neurological - other findings: awake but non conversational. Increase tone of limbs Nephrology Results - Labs Result Diagrams: 08/30/20 06:47 08/31/20 13:30 Lab results: WBC 12.1 thou/uL (4.8-10.8) H 08/30/20 06:47 Hgb 9.3 g/dL (12.0-16.0) L 08/30/20 06:47 Hct 30.4 % (36.0-47.0) L 08/30/20 06:47 MCV 85.6 fL (78.0-98.0) 08/30/20 06:47 Plt Count 248 thou/uL (130-400) 08/30/20 06:47 Neutrophils % 87.3 % (42.0-75.0) H 08/30/20 06:47 Band Neuts % (Manual) 15 % (5-11) H 08/29/20 09:07 ESR Westergren Greater than 130 mm/hr (Less than 30) H 08/29/20 09:07 ABG pH 7.48 (7.35-7.45) H 08/29/20 10:35 ABG pCO2 32.8 mmHg (35.0-45.0) L 08/29/20 10:35 ABG pO2 60.1 mmHg (> 70.0) 08/29/20 10:35 Sodium 148 mmol/L (136-145) H 08/31/20 13:30 Potassium 2.9 mmol/L (3.5-5.1) L* 08/31/20 13:30 Chloride 115 mmol/L (98-107) H 08/31/20 13:30 Carbon Dioxide 24 mmol/L (23-31) 08/31/20 13:30 BUN 18 mg/dL (9.8-20.1) 08/31/20 13:30 Creatinine 0.60 mg/dL (0.6-1.1) 08/31/20 13:30 Glucose 291 mg/dL (83-110) H 08/31/20 13:30 Lactic Acid 3.7 mmol/L (0.5-2.2) H 08/29/20 12:17 Calcium 7.9 mg/dL (7.8-10.44) 08/31/20 13:30 Total Bilirubin 0.3 mg/dL (0.2-1.2) 08/29/20 09:07 AST 17 U/L (5-34) 08/29/20 09:07 ALT 33 U/L (8-55) 08/29/20 09:07 Alkaline Phosphatase 82 U/L (40-110) 08/29/20 09:07 Troponin I 0.014 ng/mL (< 0.028) 08/29/20 09:07 C-Reactive Protein 7.52 mg/dL (= or < 0.5) H 08/29/20 09:07 B-Natriuretic Peptide 146.0 pg/mL (0-100) H 08/29/20 09:07 Serum Total Protein 6.3 g/dL (6.0-8.3) 08/29/20 09:07 Albumin 2.7 g/dL (3.4-4.8) L 08/29/20 09:07 Lipase 19 U/L (8-78) 08/29/20 09:07 Urine Ketones Negative mg/dL (Negative) 08/29/20 14:18 Urine Blood Negative (Negative) 08/29/20 14:18 Urine Nitrite Negative (Negative) 08/29/20 14:18 Ur Leukocyte Esterase Negative Amos/uL (Negative) 08/29/20 14:18 Urine RBC 0-3 HPF (0-3) 08/29/20 14:18 Urine WBC 11-20 HPF (0-3) A 08/29/20 14:18 Ur Squamous Epith Cells None Seen HPF (0-3) 08/29/20 14:18 Urine Bacteria None Seen HPF (None Seen) 08/29/20 14:18 Sodium 148 mmol/L (136-145) H 08/31/20 13:30 Potassium 2.9 mmol/L (3.5-5.1) L* 08/31/20 13:30 Chloride 115 mmol/L (98-107) H 08/31/20 13:30 Carbon Dioxide 24 mmol/L (23-31) 08/31/20 13:30 Anion Gap 12 mmol/L (10-20) 08/31/20 13:30 BUN 18 mg/dL (9.8-20.1) 08/31/20 13:30 Creatinine 0.60 mg/dL (0.6-1.1) 08/31/20 13:30 Glucose 291 mg/dL (83-110) H 08/31/20 13:30 Calcium 7.9 mg/dL (7.8-10.44) 08/31/20 13:30 Magnesium 2.6 mg/dL (1.6-2.6) 08/29/20 09:07 Albumin 2.7 g/dL (3.4-4.8) L 08/29/20 09:07 Nephrology AP PN - Plan ASSESSMENT: Hypernatremia: Due to free water deficit. Improving with hypotonic IVF. Hypokalemia Presumed sepsis from sacral decubitus ulcer/ostemyelitis and urinary tract infection. Dementia with Lewy body as well as Parkinsonism. Chronic debilitation. Dysphagia on tube feeding via PEG tube. Plan Replete serum potassium with K phos Get serum phosporus and magnesium Continue hypotonic IVF. Increase free water flushes Other treatments as per primary attending.
[2020-08-31 16:53] LABS: Phosphorus 2.2 mg/dL (2.3-4.7)
[2020-08-31] MEDS ORDERED: Potassium Phosphate 15 MMOL in Sodium Chloride 0.9% 250 ML 250 ML IVPB SCH (17:30)
[2020-08-31] MEDS: HumaLOG 300 UNITS/3 ML VIAL SC PRN (17:53)
[2020-08-31] MEDS: Potassium Bicarbonate/Cit Ac 20 MEQ TAB PO SCH (21:57)
[2020-08-31] MEDS: Insulin Glargine 15 UNITS in Pre-Filled Syringe 1 EACH SC SCH (22:03)
[2020-09-01] MEDS: metroNIDAZOLE 500 MG in Premix Bag 1 BAG IVPB SCH ×4 (00:42→23:21)
[2020-09-01] MEDS: Potassium Bicarbonate/Cit Ac 20 MEQ TAB PO SCH (04:01)
[2020-09-01] MEDS: HumaLOG 300 UNITS/3 ML VIAL SC PRN ×2 (05:31→16:45)
[2020-09-01 06:19] LABS: Albumin 2.1 g/dL (3.4-4.8); Anion Gap 13 mmol/L (10-20); BUN (Urea Nitrogen) 16 mg/dL (9.8-20.1); Calc. Creatinine Clearance 74 mL/min (70-130); Calcium 7.7 mg/dL (7.8-10.44); Carbon Dioxide 22 mmol/L (23-31); Chloride 114 mmol/L (98-107); Glucose 306 mg/dL (83-110); Magnesium 1.9 mg/dL (1.6-2.6); Potassium 5.2 mmol/L (3.5-5.1); Sodium 144 mmol/L (136-145)
[2020-09-01] MEDS: Enoxaparin Sodium 40 MG/0.4 ML SYRINGE SC SCH (09:03)
[2020-09-01] MEDS: Cefepime 2 GM in Sodium Chloride 0.9% 100 ML IVPB SCH ×2 (09:04→20:45)
--- NOTE | 2020-09-01 09:35 | PDOC.NEPPN ---
- Subjective Encounter Date: 09/01/20 Subjective: Seen in follow up for hypernatremia. No new problem. Tolerating tube feeding. - Objective Vital Signs & Weight: Vital Signs (12 hours) Temp Pulse Resp BP Pulse Ox 09/01/20 07:58 98.1 F 72 16 136/70 100 09/01/20 04:01 98.2 F 66 20 97/52 L 96 09/01/20 00:00 98.5 F 67 20 112/54 L 96 Weight Admit Weight 136 lb 3.2 oz Weight 136 lb 3.225 oz I&O: 08/31/20 09/01/20 09/02/20 06:59 06:59 06:59 Intake Total 2200 3550 Output Total 950 975 Balance 1250 2575 Result Diagrams: 08/30/20 06:47 09/01/20 05:28 Additional Labs: Accuchecks 09/01/20 08/31/20 08/31/20 05:09 21:17 15:38 POC Glucose 244 H 157 H 248 H 08/31/20 11:00 POC Glucose 304 H Nephrology ROS - Medication Medications: Active Medications Generic Name Dose Route Start Last Admin Trade Name Freq PRN Reason Stop Dose Admin Enoxaparin Sodium 40 mg 08/30/20 09:00 09/01/20 09:03 Enoxaparin Sodium 40 Mg/0.4 Ml Syringe SC 40 mg 0900 CARLOS Administration Cefepime HCl 2 gm/ Sodium 100 mls @ 200 mls/hr 08/29/20 21:00 09/01/20 09:04 Chloride IVPB 100 mls Q12HR CARLOS Administration Metronidazole 500 mg/ Device 100 mls @ 100 mls/hr 08/29/20 16:00 09/01/20 09:03 IVPB 100 mls 0000,0800,1600 CARLOS Administration Vancomycin HCl 1.75 gm/ Sodium 500 mls @ 250 mls/hr 08/31/20 11:00 08/31/20 12:12 Chloride IVPB 500 mls 1100 CARLOS Administration Insulin Glargine 15 units/ 0.15 mls @ 0 mls/hr 08/31/20 21:00 08/31/20 22:03 Miscellaneous Medication SC 0.15 mls BID CARLOS Administration Insulin Human Lispro 0 units 08/29/20 11:41 09/01/20 05:31 Humalog 300 Units/3 Ml Vial SC 3 unit .MILD SLIDING SCALE PRN Administration Mild Correctional Scale - Exam General - other findings: awake but non conversational Eye: anicteric sclera ENT: normocephalic atraumatic Neck: symmetric Respiratory - other findings: far air entry bilaterally Cardiovascular: RRR Gastrointestinal: soft, non-tender, normal bowel sounds Gastrointestinal - other findings: PEG tube noted Extremities - other findings: trace to mild edema of the elbows noted. Bilateral foot drop noted Neurological - other findings: sedated Nephrology Results - Labs Result Diagrams: 08/30/20 06:47 09/01/20 05:28 Lab results: WBC 12.1 thou/uL (4.8-10.8) H 08/30/20 06:47 Hgb 9.3 g/dL (12.0-16.0) L 08/30/20 06:47 Hct 30.4 % (36.0-47.0) L 08/30/20 06:47 MCV 85.6 fL (78.0-98.0) 08/30/20 06:47 Plt Count 248 thou/uL (130-400) 08/30/20 06:47 Neutrophils % 87.3 % (42.0-75.0) H 08/30/20 06:47 Band Neuts % (Manual) 15 % (5-11) H 08/29/20 09:07 ESR Westergren Greater than 130 mm/hr (Less than 30) H 08/29/20 09:07 ABG pH 7.48 (7.35-7.45) H 08/29/20 10:35 ABG pCO2 32.8 mmHg (35.0-45.0) L 08/29/20 10:35 ABG pO2 60.1 mmHg (> 70.0) 08/29/20 10:35 Sodium 144 mmol/L (136-145) 09/01/20 05:28 Potassium 5.2 mmol/L (3.5-5.1) H 09/01/20 05:28 Chloride 114 mmol/L (98-107) H 09/01/20 05:28 Carbon Dioxide 22 mmol/L (23-31) L 09/01/20 05:28 BUN 16 mg/dL (9.8-20.1) 09/01/20 05:28 Creatinine 0.64 mg/dL (0.6-1.1) 09/01/20 05:28 Glucose 306 mg/dL (83-110) H 09/01/20 05:28 Lactic Acid 3.7 mmol/L (0.5-2.2) H 08/29/20 12:17 Calcium 7.7 mg/dL (7.8-10.44) L 09/01/20 05:28 Total Bilirubin 0.3 mg/dL (0.2-1.2) 08/29/20 09:07 AST 17 U/L (5-34) 08/29/20 09:07 ALT 33 U/L (8-55) 08/29/20 09:07 Alkaline Phosphatase 82 U/L (40-110) 08/29/20 09:07 Troponin I 0.014 ng/mL (< 0.028) 08/29/20 09:07 C-Reactive Protein 7.52 mg/dL (= or < 0.5) H 08/29/20 09:07 B-Natriuretic Peptide 146.0 pg/mL (0-100) H 08/29/20 09:07 Serum Total Protein 6.3 g/dL (6.0-8.3) 08/29/20 09:07 Albumin 2.1 g/dL (3.4-4.8) L 09/01/20 05:28 Lipase 19 U/L (8-78) 08/29/20 09:07 Urine Ketones Negative mg/dL (Negative) 08/29/20 14:18 Urine Blood Negative (Negative) 08/29/20 14:18 Urine Nitrite Negative (Negative) 08/29/20 14:18 Ur Leukocyte Esterase Negative Amos/uL (Negative) 08/29/20 14:18 Urine RBC 0-3 HPF (0-3) 08/29/20 14:18 Urine WBC 11-20 HPF (0-3) A 08/29/20 14:18 Ur Squamous Epith Cells None Seen HPF (0-3) 08/29/20 14:18 Urine Bacteria None Seen HPF (None Seen) 08/29/20 14:18 Sodium 144 mmol/L (136-145) 09/01/20 05:28 Potassium 5.2 mmol/L (3.5-5.1) H 09/01/20 05:28 Chloride 114 mmol/L (98-107) H 09/01/20 05:28 Carbon Dioxide 22 mmol/L (23-31) L 09/01/20 05:28 Anion Gap 13 mmol/L (10-20) 09/01/20 05:28 BUN 16 mg/dL (9.8-20.1) 09/01/20 05:28 Creatinine 0.64 mg/dL (0.6-1.1) 09/01/20 05:28 Glucose 306 mg/dL (83-110) H 09/01/20 05:28 Calcium 7.7 mg/dL (7.8-10.44) L 09/01/20 05:28 Phosphorus 2.0 mg/dL (2.3-4.7) L 09/01/20 05:28 Magnesium 1.9 mg/dL (1.6-2.6) 09/01/20 05:28 Albumin 2.1 g/dL (3.4-4.8) L 09/01/20 05:28 Nephrology AP PN - Plan ASSESSMENT: Hypernatremia: Due to free water deficit. Resolved with hypotonic IVF. Hypokalemia: Corrected Metabolic acidosis: Improved. Presumed sepsis from sacral decubitus ulcer/ostemyelitis and urinary tract infection. Dementia with Lewy body as well as Parkinsonism. Chronic debilitation. Dysphagia on tube feeding via PEG tube. Plan DC IVF. Increase free water flushes via PEG Other treatments as per primary attending. Can be discharged from nephrology point of view.
[2020-09-01] MEDS: Insulin Glargine 15 UNITS in Pre-Filled Syringe 1 EACH SC SCH (11:36)
[2020-09-01] MEDS: Vancomycin HCl 1.75 GM in Sodium Chloride 0.9% 500 ML IVPB SCH (12:08)
--- NOTE | 2020-09-01 14:33 | PDOC.HOSPP ---
- Subjective Encounter Date: 09/01/20 Encounter Time: 11:15 Subjective: awake, does not interact or follow - Objective Vital Signs & Weight: Vital Signs (12 hours) Temp Pulse Resp BP Pulse Ox 09/01/20 10:41 98.9 F 75 18 96/59 L 100 09/01/20 08:00 100 09/01/20 07:58 98.1 F 72 16 136/70 100 09/01/20 04:01 98.2 F 66 20 97/52 L 96 Weight Admit Weight 136 lb 3.2 oz Weight 136 lb 3.225 oz I&O: 08/31/20 09/01/20 09/02/20 06:59 06:59 06:59 Intake Total 2200 3550 Output Total 950 975 Balance 1250 2575 Result Diagrams: 08/30/20 06:47 09/01/20 05:28 Additional Labs: Accuchecks 09/01/20 09/01/20 08/31/20 10:52 05:09 21:17 POC Glucose 284 H 244 H 157 H 08/31/20 15:38 POC Glucose 248 H Hospitalist ROS - Medication Medications: Active Medications Generic Name Dose Route Start Last Admin Trade Name Freq PRN Reason Stop Dose Admin Enoxaparin Sodium 40 mg 08/30/20 09:00 09/01/20 09:03 Enoxaparin Sodium 40 Mg/0.4 Ml Syringe SC 40 mg 0900 CARLOS Administration Cefepime HCl 2 gm/ Sodium 100 mls @ 200 mls/hr 08/29/20 21:00 09/01/20 09:04 Chloride IVPB 100 mls Q12HR CARLOS Administration Metronidazole 500 mg/ Device 100 mls @ 100 mls/hr 08/29/20 16:00 09/01/20 09:03 IVPB 100 mls 0000,0800,1600 CARLOS Administration Vancomycin HCl 1.75 gm/ Sodium 500 mls @ 250 mls/hr 08/31/20 11:00 09/01/20 12:08 Chloride IVPB 500 mls 1100 CARLOS Administration Insulin Human Lispro 0 units 08/29/20 11:41 09/01/20 05:31 Humalog 300 Units/3 Ml Vial SC 3 unit .MILD SLIDING SCALE PRN Administration Mild Correctional Scale - Exam General Appearance: ill appearing Eye: anicteric sclera ENT: no oropharyngeal lesions, dry oral mucosa Neck: supple, no JVD Heart: RRR, no murmur Respiratory: no wheezes, no rales, rhonchi Gastrointestinal: soft, non-tender, non-distended, normal bowel sounds Gastrointestinal - other findings: peg+ Extremities: no cyanosis, no edema Extremities - other findings: has contractures of all extremities Hosp A/P (1) Osteomyelitis of sacrum Code(s): M46.28 - OSTEOMYELITIS OF [place]TEBRA, SACRAL AND SACROCOCCYGEAL REGION Status: Acute (2) Severe dehydration Code(s): E86.0 - DEHYDRATION Status: Acute (3) Sacral decubitus ulcer, stage IV Code(s): L89.154 - PRESSURE ULCER OF SACRAL REGION, STAGE 4 Status: Acute (4) FTT (failure to thrive) in adult Status: Chronic (5) Severe protein-calorie malnutrition Code(s): E43 - UNSPECIFIED SEVERE PROTEIN-CALORIE MALNUTRITION Status: Acute (6) Aspiration pneumonia Code(s): J69.0 - PNEUMONITIS DUE TO INHALATION OF FOOD AND VOMIT Status: Acute Qualifiers: Aspiration pneumonia type: due to regurgitated food (7) Sepsis Code(s): A41.9 - SEPSIS, UNSPECIFIED ORGANISM Status: Acute Qualifiers: Sepsis type: sepsis due to unspecified organism Sepsis acute organ dysfunc tion status: without acute organ dysfunction Qualified Code(s): A41.9 - Sepsis, unspecified organism (8) Acute metabolic encephalopathy Code(s): G93.41 - METABOLIC ENCEPHALOPATHY Status: Acute (9) Hypernatremia Code(s): E87.0 - HYPEROSMOLALITY AND HYPERNATREMIA Status: Resolved (10) Anxiety and depression Code(s): F41.8 - OTHER SPECIFIED ANXIETY DISORDERS Status: Chronic (11) Dementia Code(s): F03.90 - UNSPECIFIED DEMENTIA WITHOUT BEHAVIORAL DISTURBANCE Status: Chronic Qualifiers: Dementia type: Lewy body dementia (12) Diabetes type 2, controlled Code(s): E11.9 - TYPE 2 DIABETES MELLITUS WITHOUT COMPLICATIONS Status: Chronic Qualifiers: Diabetes mellitus [place] [employer] insulin use: without fdc use (13) Hypertension Code(s): I10 - ESSENTIAL (PRIMARY) HYPERTENSION Status: Chronic Qualifiers: (14) Parkinson disease Code(s): G20 - PARKINSON'S DISEASE Status: Chronic - Plan has multiple med issues with very poor prognosis wound care, cefepime, vanc and flagyl d/w daughter Ms.Michelle Sandy [phone], gave full updates and poor fdc prognosis, and at bedside 08/31, over phone on 09/2020. she wants her to be full code for now and wants ltac eval pt is hospice appropriate if family agrees glucerna 1 can qid with q2h free water as tolerated, is off iv fluids, electrolytes are corrected. CM for ltac eval PICC line pending increase lantus for dm uncontrolled Plan is to switch to invanz daily on dc to ltac if she is accepted.
[2020-09-01] MEDS: Insulin Glargine 20 UNITS in Pre-Filled Syringe SC SCH (20:45)
[2020-09-02] MEDS: HumaLOG 300 UNITS/3 ML VIAL SC PRN ×3 (06:12→16:22)
[2020-09-02 06:44] LABS: #Eosinphils 0.2 thou/uL (0.0-0.7); #Lymphocytes 1.4 thou/uL (1.20-3.40); #Monocytes 0.3 thou/uL (0.11-0.59); #Neutrophils 7.8 thou/uL (1.40-6.50); %Basophils 0.2 % (0.0-1.0); %Eosinophils 1.9 % (0.0-10.0); %Lymphocytes 14.1 % (21.0-51.0); %Monocytes 3.3 % (0.0-10.0); %Neutrophils 80.5 % (42.0-75.0); Mean Corpuscular HGB CONC 30.9 g/dL (32.0-36.0); Mean Corpuscular Hemoglobin 25.5 pg (27.0-31.0); Mean Corpuscular Volume 82.6 fL (78.0-98.0); Mean Platelet Volume 9.6 fL (7.4-10.4); Platelet Count 276 thou/uL (130-400); RBC Distribution Width 14.7 % (11.5-14.5); Red Blood Cell (RBC) Count 3.51 mill/uL (4.20-5.40); White Blood Cell (WBC) Count 9.7 thou/uL (4.8-10.8)
[2020-09-02 07:04] LABS: ALT (SGPT) 33 U/L (8-55); AST (SGOT) 38 U/L (5-34); Albumin 1.9 g/dL (3.4-4.8); Alkaline Phosphatase 71 U/L (40-110); Anion Gap 12 mmol/L (10-20); BUN (Urea Nitrogen) 16 mg/dL (9.8-20.1); Bilirubin, Total 0.2 mg/dL (0.2-1.2); Calc. Creatinine Clearance 80 mL/min (70-130); Calcium 7.4 mg/dL (7.8-10.44); Carbon Dioxide 23 mmol/L (23-31); Chloride 112 mmol/L (98-107); Globulin 2.5 g/dL (2.4-3.5); Glucose 288 mg/dL (83-110); Potassium 3.6 mmol/L (3.5-5.1); Protein, Total 4.4 g/dL (6.0-8.3); Sodium 143 mmol/L (136-145)
[2020-09-02] MEDS: Enoxaparin Sodium 40 MG/0.4 ML SYRINGE SC SCH (08:54)
[2020-09-02] MEDS: Folic Acid 1 MG TAB PO SCH (08:55)
[2020-09-02] MEDS: Saccharomyces boulardii 250 MG CAP PO SCH (08:55)
[2020-09-02] MEDS: Cyanocobalamin (Vitamin B-12) 1,000 MCG TAB PO SCH (08:55)
[2020-09-02 10:12] LABS: Phosphorus 1.5 mg/dL (2.3-4.7)
--- NOTE | 2020-09-02 10:26 | PDOC.NEPPN ---
- Subjective Encounter Date: 09/02/20 Subjective: No new problem. - Objective Vital Signs & Weight: Vital Signs (12 hours) Temp Pulse Resp BP Pulse Ox 09/02/20 07:16 98.7 F 68 20 129/64 97 09/02/20 04:18 98.6 F 69 18 106/66 94 L 09/02/20 00:01 99 F 68 20 108/67 96 Weight Admit Weight 136 lb 3.2 oz Weight 136 lb 3.225 oz I&O: 09/01/20 09/02/20 09/03/20 06:59 06:59 06:59 Intake Total 3550 1554 Output Total 975 875 Balance 4107 899 Result Diagrams: 09/02/20 05:43 09/02/20 05:43 Additional Labs: Accuchecks 09/02/20 09/01/20 09/01/20 05:34 20:26 14:59 POC Glucose 274 H 180 H 296 H 09/01/20 10:52 POC Glucose 284 H Nephrology ROS - Medication Medications: Active Medications Generic Name Dose Route Start Last Admin Trade Name Freq PRN Reason Stop Dose Admin Cyanocobalamin 1,000 mcg 09/02/20 09:00 09/02/20 08:55 Cyanocobalamin (Vitamin B-12) 1,000 Mcg Tab PO 1,000 mcg DAILY CARLOS Administration Enoxaparin Sodium 40 mg 08/30/20 09:00 09/02/20 08:54 Enoxaparin Sodium 40 Mg/0.4 Ml Syringe SC 40 mg 0900 CARLOS Administration Folic Acid 1 mg 09/02/20 09:00 09/02/20 08:55 Folic Acid 1 Mg Tab PO 1 mg DAILY CARLOS Administration Cefepime HCl 2 gm/ Sodium 100 mls @ 200 mls/hr 08/29/20 21:00 09/01/20 20:45 Chloride IVPB 100 mls Q12HR CARLOS Administration Metronidazole 500 mg/ Device 100 mls @ 100 mls/hr 08/29/20 16:00 09/01/20 23:21 IVPB 100 mls 0000,0800,1600 CARLOS Administration Vancomycin HCl 1.75 gm/ Sodium 500 mls @ 250 mls/hr 08/31/20 11:00 09/01/20 12:08 Chloride IVPB 500 mls 1100 CARLOS Administration Insulin Glargine 20 units/ 0.2 mls @ 0 mls/hr 09/01/20 21:00 09/01/20 20:45 Miscellaneous Medication SC 0.2 mls BID CARLOS Administration Insulin Human Lispro 0 units 08/29/20 11:41 09/02/20 06:12 Humalog 300 Units/3 Ml Vial SC 3 unit .MILD SLIDING SCALE PRN Administration Mild Correctional Scale Saccharomyces Boulardii 250 mg 09/02/20 09:00 09/02/20 08:55 Saccharomyces Boulardii 250 Mg Cap PO 250 mg DAILY CARLOS Administration - Exam General - other findings: Awake. Non conversational ENT: normocephalic atraumatic Respiratory - other findings: fair air entry with transmitted sound Cardiovascular: RRR Gastrointestinal: soft, non-distended, normal bowel sounds Gastrointestinal - other findings: Gastric tube noted Neurological - other findings: awake. non verbal. regards and acknowledges presence Nephrology Results - Labs Result Diagrams: 09/02/20 05:43 09/02/20 05:43 Lab results: WBC 9.7 thou/uL (4.8-10.8) 09/02/20 05:43 Hgb 9.0 g/dL (12.0-16.0) L 09/02/20 05:43 Hct 29.0 % (36.0-47.0) L 09/02/20 05:43 MCV 82.6 fL (78.0-98.0) 09/02/20 05:43 Plt Count 276 thou/uL (130-400) 09/02/20 05:43 Neutrophils % 80.5 % (42.0-75.0) H 09/02/20 05:43 Band Neuts % (Manual) 15 % (5-11) H 08/29/20 09:07 ESR Westergren Greater than 130 mm/hr (Less than 30) H 08/29/20 09:07 ABG pH 7.48 (7.35-7.45) H 08/29/20 10:35 ABG pCO2 32.8 mmHg (35.0-45.0) L 08/29/20 10:35 ABG pO2 60.1 mmHg (> 70.0) 08/29/20 10:35 Sodium 143 mmol/L (136-145) 09/02/20 05:43 Potassium 3.6 mmol/L (3.5-5.1) 09/02/20 05:43 Chloride 112 mmol/L (98-107) H 09/02/20 05:43 Carbon Dioxide 23 mmol/L (23-31) 09/02/20 05:43 BUN 16 mg/dL (9.8-20.1) 09/02/20 05:43 Creatinine 0.59 mg/dL (0.6-1.1) L 09/02/20 05:43 Glucose 288 mg/dL (83-110) H 09/02/20 05:43 Lactic Acid 3.7 mmol/L (0.5-2.2) H 08/29/20 12:17 Calcium 7.4 mg/dL (7.8-10.44) L 09/02/20 05:43 Total Bilirubin 0.2 mg/dL (0.2-1.2) 09/02/20 05:43 AST 38 U/L (5-34) H 09/02/20 05:43 ALT 33 U/L (8-55) 09/02/20 05:43 Alkaline Phosphatase 71 U/L (40-110) 09/02/20 05:43 Troponin I 0.014 ng/mL (< 0.028) 08/29/20 09:07 C-Reactive Protein 7.52 mg/dL (= or < 0.5) H 08/29/20 09:07 B-Natriuretic Peptide 146.0 pg/mL (0-100) H 08/29/20 09:07 Serum Total Protein 4.4 g/dL (6.0-8.3) L 09/02/20 05:43 Albumin 1.9 g/dL (3.4-4.8) L 09/02/20 05:43 Lipase 19 U/L (8-78) 08/29/20 09:07 Urine Ketones Negative mg/dL (Negative) 08/29/20 14:18 Urine Blood Negative (Negative) 08/29/20 14:18 Urine Nitrite Negative (Negative) 08/29/20 14:18 Ur Leukocyte Esterase Negative Amos/uL (Negative) 08/29/20 14:18 Urine RBC 0-3 HPF (0-3) 08/29/20 14:18 Urine WBC 11-20 HPF (0-3) A 08/29/20 14:18 Ur Squamous Epith Cells None Seen HPF (0-3) 08/29/20 14:18 Urine Bacteria None Seen HPF (None Seen) 08/29/20 14:18 Sodium 143 mmol/L (136-145) 09/02/20 05:43 Potassium 3.6 mmol/L (3.5-5.1) 09/02/20 05:43 Chloride 112 mmol/L (98-107) H 09/02/20 05:43 Carbon Dioxide 23 mmol/L (23-31) 09/02/20 05:43 Anion Gap 12 mmol/L (10-20) 09/02/20 05:43 BUN 16 mg/dL (9.8-20.1) 09/02/20 05:43 Creatinine 0.59 mg/dL (0.6-1.1) L 09/02/20 05:43 Glucose 288 mg/dL (83-110) H 09/02/20 05:43 Calcium 7.4 mg/dL (7.8-10.44) L 09/02/20 05:43 Phosphorus 1.5 mg/dL (2.3-4.7) L 09/02/20 09:29 Magnesium 2.0 mg/dL (1.6-2.6) 09/02/20 09:29 Albumin 1.9 g/dL (3.4-4.8) L 09/02/20 05:43 Nephrology AP PN - Plan ASSESSMENT: Hypernatremia: Due to free water deficit. Resolved with hypotonic IVF. Hypokalemia: Corrected Metabolic acidosis: Improved. Presumed sepsis from sacral decubitus ulcer/ostemyelitis and urinary tract infection. Dementia with Lewy body as well as Parkinsonism. Chronic debilitation. Dysphagia on tube feeding via PEG tube. Hypophosphatemia Plan Replete plasma phosporus with 30 mmol of potassium phosphate Continue free water flushes via PEG Other treatments as per primary attending. Nephrology will sign off
[2020-09-02] MEDS ORDERED: Potassium Phosphate 30 MMOL in Sodium Chloride 0.9% 250 ML 250 ML IVPB SCH (10:30)
[2020-09-02] MEDS: Insulin Glargine 20 UNITS in Pre-Filled Syringe SC SCH ×2 (10:42→20:47)
[2020-09-02] MEDS: metroNIDAZOLE 500 MG in Premix Bag 1 BAG IVPB SCH ×2 (10:42→17:10)
[2020-09-02] MEDS ORDERED: Potassium Phosphate 15 MMOL in Sodium Chloride 0.9% 250 ML 250 ML IVPB SCH (10:45)
[2020-09-02] MEDS: Cefepime 2 GM in Sodium Chloride 0.9% 100 ML IVPB SCH ×2 (11:57→20:48)
[2020-09-02] MEDS: Vancomycin HCl 1.75 GM in Sodium Chloride 0.9% 500 ML IVPB SCH (12:37)
--- NOTE | 2020-09-02 15:21 | EKG ---
Test Reason : Blood Pressure : / mmHG Vent. Rate : 079 BPM Atrial Rate : 079 BPM P-R Int : 126 ms QRS Dur : 082 ms QT Int : 378 ms P-R-T Axes : 052 018 026 degrees QTc Int : 433 ms Normal sinus rhythm Normal ECG Confirmed by DAVID AVALOS, JANY ([id number]), visual effects editor YVES MONTANEZ ([id number]) on 09/02/2020 3:20:57 PM Referred By: Confirmed By:JANY HERNANDEZ MD
--- NOTE | 2020-09-02 17:27 | PDOC.HOSPP ---
- Subjective Encounter Date: 09/02/20 Encounter Time: 10:00 non-verbal Subjective: Patient seen and examined for sepsis. No overnight events. Family at the bedside. Tolerating PEG tube feeding. - Objective Vital Signs & Weight: Vital Signs (12 hours) Temp Pulse Resp BP Pulse Ox 09/02/20 15:50 98.7 F 68 18 131/50 L 98 09/02/20 11:22 98.9 F 68 18 110/57 L 98 09/02/20 07:16 98.7 F 68 20 129/64 97 Weight Admit Weight 136 lb 3.2 oz Weight 136 lb 3.225 oz I&O: 09/01/20 09/02/20 09/03/20 06:59 06:59 06:59 Intake Total 3550 1554 1040 Output Total 975 875 Balance 2575 679 1040 Result Diagrams: 09/02/20 05:43 09/02/20 05:43 Additional Labs: Accuchecks 09/02/20 09/02/20 09/02/20 16:01 11:24 05:34 POC Glucose 171 H 257 H 274 H 09/01/20 20:26 POC Glucose 180 H Abnormal Lab Results - Last 48 hrs 09/01/20 05:28: Potassium 5.2 H, Chloride 114 H, Carbon Dioxide 22 L, Calcium 7.7 L, Phosphorus 2.0 L, Albumin 2.1 L 09/02/20 05:43: Chloride 112 H, Creatinine 0.59 L, Calcium 7.4 L, AST 38 H, Serum Total Protein 4.4 L, Albumin 1.9 L, Albumin/Globulin Ratio 0.8 L 09/02/20 05:43: RBC 3.51 L, Hgb 9.0 L, Hct 29.0 L, MCH 25.5 L, MCHC 30.9 L, RDW 14.7 H, Neutrophils % 80.5 H, Lymphocytes % 14.1 L, Neutrophils # 7.8 H 09/02/20 09:29: Phosphorus 1.5 L Microbiology - Entire Visit 08/29/20 09:16 Venous blood - Right Arm Blood Culture - Preliminary NO GROWTH AT 48 HOURS 08/29/20 09:07 Venous blood - Left Arm Blood Culture - Preliminary NO GROWTH AT 48 HOURS 08/29/20 13:25 Urine Straight Catheter Urine Culture - Final Radiology Reviewed by me: Yes (CT abdomen reviewed) Hospitalist ROS - Review of Systems ROS unobtainable: due to mental status - Medication Medications: Active Medications Generic Name Dose Route Start Last Admin Trade Name Shay PRN Reason Stop Dose Admin Cyanocobalamin 1,000 mcg 09/02/20 09:00 09/02/20 08:55 Cyanocobalamin (Vitamin B-12) 1,000 Mcg Tab PO 1,000 mcg DAILY CARLOS Administration Enoxaparin Sodium 40 mg 08/30/20 09:00 09/02/20 08:54 Enoxaparin Sodium 40 Mg/0.4 Ml Syringe SC 40 mg 0900 CARLOS Administration Folic Acid 1 mg 09/02/20 09:00 09/02/20 08:55 Folic Acid 1 Mg Tab PO 1 mg DAILY CARLOS Administration Cefepime HCl 2 gm/ Sodium 100 mls @ 200 mls/hr 08/29/20 21:00 09/02/20 11:57 Chloride IVPB 100 mls Q12HR CARLOS Administration Metronidazole 500 mg/ Device 100 mls @ 100 mls/hr 08/29/20 16:00 09/02/20 17:10 IVPB 100 mls 0000,0800,1600 CARLOS Administration Vancomycin HCl 1.75 gm/ Sodium 500 mls @ 250 mls/hr 08/31/20 11:00 09/02/20 12:37 Chloride IVPB 500 mls 1100 CARLOS Administration Insulin Glargine 20 units/ 0.2 mls @ 0 mls/hr 09/01/20 21:00 09/02/20 10:42 Miscellaneous Medication SC 0.2 mls BID CARLOS Administration Insulin Human Lispro 0 units 08/29/20 11:41 09/02/20 16:22 Humalog 300 Units/3 Ml Vial SC 2 unit .MILD SLIDING SCALE PRN Administration Mild Correctional Scale Saccharomyces Boulardii 250 mg 09/02/20 09:00 09/02/20 08:55 Saccharomyces Boulardii 250 Mg Cap PO 250 mg DAILY CARLOS Administration - Exam General Appearance: ill appearing Heart: RRR, no gallops Respiratory: rales, rhonchi Gastrointestinal: soft, no guarding, no rigidity Extremities: no cyanosis Neurological - other findings: Neuro/psychcannot assess due to current mentation Hosp A/P - Plan DVT proph w/SCDs Severe sepsis due to infected sacral decubitus ulcer with cellulitis and possible early osteomyelitis/aspiration pneumoniaPOA Toxic metabolic encephalopathyPOA Severe dehydration with osmolality of 353 on admission Hypokalemia Hypophosphatemia Lactic acidosis Chronic anemia Dementia Parkinson disease Hypokalemia 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 Sandy at bedside. Continue IV vancomycin with cefepime. Monitor vancomycin level. Replace potassium and phosphorus. Await LTAC eval. Change sliding scale to moderate continue other medications as above. Await PICC line placement and Invanz 1 g daily for 3 weeks at LTAC. Recheck labs in a.m.
[2020-09-03] MEDS: metroNIDAZOLE 500 MG in Premix Bag 1 BAG IVPB SCH ×3 (00:24→15:12)
[2020-09-03] MEDS: HumaLOG 300 UNITS/3 ML VIAL SC PRN ×3 (06:00→17:03)
[2020-09-03 06:48] LABS: Hemoglobin 9.2 g/dL (12.0-16.0); Mean Corpuscular HGB CONC 29.9 g/dL (32.0-36.0); Mean Corpuscular Hemoglobin 24.7 pg (27.0-31.0); Mean Corpuscular Volume 82.7 fL (78.0-98.0); Mean Platelet Volume 9.4 fL (7.4-10.4); Platelet Count 272 thou/uL (130-400); RBC Distribution Width 15.3 % (11.5-14.5)
[2020-09-03 07:01] LABS: ALT (SGPT) 45 U/L (8-55); AST (SGOT) 51 U/L (5-34); Albumin 1.9 g/dL (3.4-4.8); Alkaline Phosphatase 72 U/L (40-110); Anion Gap 12 mmol/L (10-20); BUN (Urea Nitrogen) 13 mg/dL (9.8-20.1); Bilirubin, Total 0.2 mg/dL (0.2-1.2); Calc. Creatinine Clearance 88 mL/min (70-130); Calcium 7.3 mg/dL (7.8-10.44); Carbon Dioxide 23 mmol/L (23-31); Chloride 109 mmol/L (98-107); Globulin 2.6 g/dL (2.4-3.5); Glucose 222 mg/dL (83-110); Magnesium 2.1 mg/dL (1.6-2.6); Protein, Total 4.5 g/dL (6.0-8.3); Sodium 140 mmol/L (136-145)
[2020-09-03 08:26] LABS: Band 2 % (5-11); Eosinophils 1 % (0-10); Hypochromia SLIGHT = 6-15 cells (100X) (0-5/hpf); Lymphocytes 14 % (21-51); MDiff Complete? YES; Monocytes 4 % (0-10); Neutrophil 79 % (42-75); Platelet Morphology Comment Appears Adequate; Polychromasia SLIGHT = 2-3 cells (100X) (0-2/hpf); Schistocytes SLIGHT = 2-5 cells (100X) (0-1/hpf)
[2020-09-03] MEDS: Cefepime 2 GM in Sodium Chloride 0.9% 100 ML IVPB SCH ×2 (09:07→21:50)
[2020-09-03] MEDS: Cyanocobalamin (Vitamin B-12) 1,000 MCG TAB PO SCH (09:10)
[2020-09-03] MEDS: Enoxaparin Sodium 40 MG/0.4 ML SYRINGE SC SCH (09:10)
[2020-09-03] MEDS: Folic Acid 1 MG TAB PO SCH (09:10)
[2020-09-03] MEDS: Saccharomyces boulardii 250 MG CAP PO SCH (09:10)
[2020-09-03] MEDS: Insulin Glargine 20 UNITS in Pre-Filled Syringe SC SCH ×2 (09:11→21:50)
[2020-09-03] MEDS ORDERED: Potassium Phosphate 30 MMOL in Sodium Chloride 0.9% 500 ML IVPB SCH (10:15)
[2020-09-03] MEDS: Vancomycin 1 GM in Premix Bag 1 BAG IVPB SCH (12:55)
[2020-09-03] MEDS: Vancomycin HCl 1.75 GM in Sodium Chloride 0.9% 500 ML IVPB SCH (13:00)
--- NOTE | 2020-09-03 18:34 | PDOC.HOSPP ---
- Subjective Encounter Date: 09/03/20 Encounter Time: 14:00 non-verbal Subjective: Patient seen and examined for sepsis. No overnight issues. Mentation slowly improving. - Objective Vital Signs & Weight: Vital Signs (12 hours) Temp Pulse Resp BP Pulse Ox 09/03/20 15:40 98.4 F 70 16 116/67 98 09/03/20 10:45 98.4 F 72 18 107/55 L 96 09/03/20 09:00 97 09/03/20 07:32 97.3 F L 69 16 147/81 H 97 Weight Admit Weight 136 lb 3.2 oz Weight 136 lb 3.225 oz I&O: 09/02/20 09/03/20 09/04/20 06:59 06:59 06:59 Intake Total 1554 3020 1424 Output Total 875 1300 750 Balance 679 1720 674 Result Diagrams: 09/03/20 06:09 09/03/20 06:09 Additional Labs: Accuchecks 09/03/20 09/03/20 09/03/20 15:42 10:43 05:01 POC Glucose 188 H 201 H 223 H 09/02/20 20:32 POC Glucose 179 H Abnormal Lab Results - Last 48 hrs 09/02/20 05:43: Chloride 112 H, Creatinine 0.59 L, Calcium 7.4 L, AST 38 H, Serum Total Protein 4.4 L, Albumin 1.9 L, Albumin/Globulin Ratio 0.8 L 09/02/20 05:43: RBC 3.51 L, Hgb 9.0 L, Hct 29.0 L, MCH 25.5 L, MCHC 30.9 L, RDW 14.7 H, Neutrophils % 80.5 H, Lymphocytes % 14.1 L, Neutrophils # 7.8 H 09/02/20 09:29: Phosphorus 1.5 L 09/03/20 06:09: Chloride 109 H, Creatinine 0.54 L, Calcium 7.3 L, Phosphorus 2.0 L, AST 51 H, Serum Total Protein 4.5 L, Albumin 1.9 L, Albumin/Globulin Ratio 0.7 L 09/03/20 06:09: WBC 11.0 H, RBC 3.70 L, Hgb 9.2 L, Hct 30.6 L, MCH 24.7 L, MCHC 29.9 L, RDW 15.3 H, Neutrophils % (Manual) 79 H, Band Neuts % (Manual) 2 L, Lymphocytes % (Manual) 14 L Microbiology - Entire Visit 08/29/20 09:16 Venous blood - Right Arm Blood Culture - Final NO GROWTH IN 5 DAYS 08/29/20 09:07 Venous blood - Left Arm Blood Culture - Final NO GROWTH IN 5 DAYS 08/29/20 13:25 Urine Straight Catheter Urine Culture - Final Hospitalist ROS - Review of Systems ROS unobtainable: due to mental status - Medication Medications: Active Medications Generic Name Dose Route Start Last Admin Trade Name Freq PRN Reason Stop Dose Admin Cyanocobalamin 1,000 mcg 09/02/20 09:00 09/03/20 09:10 Cyanocobalamin (Vitamin B-12) 1,000 Mcg Tab PO 1,000 mcg DAILY CARLOS Administration Enoxaparin Sodium 40 mg 08/30/20 09:00 09/03/20 09:10 Enoxaparin Sodium 40 Mg/0.4 Ml Syringe SC 40 mg 0900 CARLOS Administration Folic Acid 1 mg 09/02/20 09:00 09/03/20 09:10 Folic Acid 1 Mg Tab PO 1 mg DAILY CARLOS Administration Cefepime HCl 2 gm/ Sodium 100 mls @ 200 mls/hr 08/29/20 21:00 09/03/20 09:07 Chloride IVPB 100 mls Q12HR CARLOS Administration Metronidazole 500 mg/ Device 100 mls @ 100 mls/hr 08/29/20 16:00 09/03/20 15:12 IVPB 100 mls 0000,0800,1600 CARLOS Administration Insulin Glargine 20 units/ 0.2 mls @ 0 mls/hr 09/01/20 21:00 09/03/20 09:11 Miscellaneous Medication SC 0.2 mls BID CARLOS Administration Vancomycin HCl 1 gm/ Device 200 mls @ 200 mls/hr 09/03/20 13:00 09/03/20 12:55 IVPB 200 mls 0100,1300 CARLOS Administration Insulin Human Lispro 0 units 09/02/20 17:31 09/03/20 17:03 Humalog 300 Units/3 Ml Vial SC 2 units .MODERATE SLIDING SC PRN Administration Moderate Correctional Scale Saccharomyces Boulardii 250 mg 09/02/20 09:00 09/03/20 09:10 Saccharomyces Boulardii 250 Mg Cap PO 250 mg DAILY CARLOS Administration - Exam General Appearance: NAD Neck: supple, no JVD Heart: RRR, no gallops Respiratory: no wheezes, no ronchi Gastrointestinal: soft, non-tender, normal bowel sounds Extremities: no cyanosis Hosp A/P - Plan DVT proph w/SCDs Severe sepsis due to infected sacral decubitus ulcer with cellulitis and possible early osteomyelitis/aspiration pneumoniaPOA Toxic metabolic encephalopathyPOA Severe dehydration with osmolality of 353 on admission Hypokalemia Hypophosphatemia Lactic acidosis Chronic anemia Dementia Parkinson disease Hypokalemia Swallow dysfunction on PEG tube feeding Moderate protein calorie malnutrition Plan: Continue IV vancomycin, cefepime and Flagyl with vancomycin level monitoring. Await LTAC placement. PICC line pending. 3 weeks of IV Invanz 1 g daily with weekly labs per infectious disease. Continue sliding scale. Replace phosphorus. Continue other medications as above. A.m. labs
[2020-09-03] MEDS ORDERED: Saccharomyces boulardii 250 MG CAP PO SCH (21:00)
[2020-09-04] MEDS: metroNIDAZOLE 500 MG in Premix Bag 1 BAG IVPB SCH ×3 (00:51→16:58)
[2020-09-04] MEDS: Vancomycin 1 GM in Premix Bag 1 BAG IVPB SCH ×2 (01:55→15:01)
[2020-09-04] MEDS: HumaLOG 300 UNITS/3 ML VIAL SC PRN ×3 (06:00→17:17)
[2020-09-04 06:12] LABS: #Eosinphils 0.2 thou/uL (0.0-0.7); #Lymphocytes 1.5 thou/uL (1.20-3.40); #Monocytes 0.4 thou/uL (0.11-0.59); #Neutrophils 7.4 thou/uL (1.40-6.50); %Basophils 0.4 % (0.0-1.0); %Eosinophils 2.3 % (0.0-10.0); %Lymphocytes 15.9 % (21.0-51.0); %Monocytes 3.8 % (0.0-10.0); %Neutrophils 77.6 % (42.0-75.0); Hemoglobin 9.4 g/dL (12.0-16.0); Mean Corpuscular HGB CONC 30.6 g/dL (32.0-36.0); Mean Corpuscular Hemoglobin 25.2 pg (27.0-31.0); Mean Corpuscular Volume 82.3 fL (78.0-98.0); Mean Platelet Volume 9.4 fL (7.4-10.4); Platelet Count 313 thou/uL (130-400); RBC Distribution Width 15.7 % (11.5-14.5); Red Blood Cell (RBC) Count 3.72 mill/uL (4.20-5.40); White Blood Cell (WBC) Count 9.5 thou/uL (4.8-10.8)
[2020-09-04 06:18] LABS: INR-International Normal Ratio 1.1; PTT 30.9 sec (22.9-36.1); Prothrombin Time 14.3 sec (12.0-14.7)
[2020-09-04 06:31] LABS: ALT (SGPT) 48 U/L (8-55); AST (SGOT) 47 U/L (5-34); Alkaline Phosphatase 85 U/L (40-110); Anion Gap 14 mmol/L (10-20); BUN (Urea Nitrogen) 12 mg/dL (9.8-20.1); Bilirubin, Total 0.2 mg/dL (0.2-1.2); Calc. Creatinine Clearance 83 mL/min (70-130); Calcium 7.7 mg/dL (7.8-10.44); Carbon Dioxide 24 mmol/L (23-31); Chloride 106 mmol/L (98-107); Globulin 2.9 g/dL (2.4-3.5); Glucose 232 mg/dL (83-110); Potassium 4.5 mmol/L (3.5-5.1); Protein, Total 4.9 g/dL (6.0-8.3); Sodium 139 mmol/L (136-145)
[2020-09-04] MEDS: Cyanocobalamin (Vitamin B-12) 1,000 MCG TAB PO SCH (09:02)
[2020-09-04] MEDS: Cefepime 2 GM in Sodium Chloride 0.9% 100 ML IVPB SCH (09:02)
[2020-09-04] MEDS: Folic Acid 1 MG TAB PO SCH (09:02)
[2020-09-04] MEDS: Saccharomyces boulardii 250 MG CAP PO SCH (09:02)
[2020-09-04] MEDS: Insulin Glargine 20 UNITS in Pre-Filled Syringe SC SCH (09:30)
--- NOTE | 2020-09-04 14:27 | SPC ---
PICC PLACEMENT ULTRASOUND-GUIDED VENOUS ACCESS: (Peripherally inserted central catheter) DATE: 09/04/2020 HISTORY: 75-year-old female with sacrococcygeal infectious spondylitis: Osteomyelitis, with decubitus ulcer. TECHNIQUE: Catheter caliber: 5 Serbian Catheter trim length:47.5 cm Catheter lumen number:single Catheter tip location:Superior vena cava/right atrial junction Vein accessed:left brachial Total fluoroscopy time: 0.3 min. Dose area product: 812 mGy*cm^2 Signed, informed consent was obtained. A tourniquet was applied at the proximal aspect of the arm. Th e arm was prepped and draped in the usual sterile fashion. A 25-gauge needle was used to applied buffered lidocaine superficially. The vein was punctured with a 21-gauge micropuncture needle under u ltrasound guidance. A 0.018 inch guidewire was advanced through the micropuncture needle and into the vein. Under fluoroscopic guidance, the guidewire was advanced to the superior vena cava. The PICC was flushed and trimmed to the appropriate length. The micropuncture needle was exchanged over the guidewire for a 5 Serbian peel-away dilator sheath. The dilator was exchanged over the guidewire for t he PICC, which was then further advanced under fluoroscopy. The sheath and guidewire were removed. The PICC was flushed again and secured in place at the arm after adjustment of tip position. The kristine ent tolerated the procedure well. There was no complication. IMPRESSION: Successful placement of PICC (peripherally inserted central catheter).
[2020-09-04 15:47] LABS: Phosphorus 2.2 mg/dL (2.3-4.7)
[2020-09-04 20:53] VITALS: BP 119/64; TEMP 98.2
--- NOTE | 2020-09-04 22:59 | PDOC.DS.DS ---
Provider - Provider Date of Admission: 08/29/20 16:44 Date of Discharge: 09/04/20 Admitting Provider: Snehal Pro MD Primary Care Physician: Mehran Noguera Course - Hospital Course Hospital Course: Patient is a 75-year-old female with swallow dysfunction currently on PEG tube feeding presented to the hospital by EMS with tachypnea along with low oxygen saturation at the nursing facility. Her O2 saturation was 82% on room air. Chest x-ray in the emergency room showed right lower lobe infiltrate. CT abdomen and pelvis showed sacrococcygeal decubitus ulcer with inflammation of the soft tissue consistent with cellulitis with possible osteomyelitis. There was no abscess noted. The CT scan also showed patchy infiltrate in the right lower lobe. Please refer to the history and physical for further details. The patient was admitted to the hospital with above diagnosis. Patient was evaluated by multiple consultants including general surgery, nephrology and infectious disease. She was started on broad-spectrum antibiotics. She also required wound VAC. A PICC line was placed on 09/04 for IV Invanz 1 g daily for 3 more weeks. She will be discharged to long-term acute care for further management. WBC count on admission was 13.9 that has normalized. ESR on admission was greater than 130. She was found to be dehydrated with serum osmolality of 353 and serum sodium of 157 that improved with IV fluids as well as increasing the water flushes. Patient also had some electrolyte abnormalities which were replaced. Final diagnosis: Severe sepsis due to infected sacral decubitus ulcer with cellulitis and possible early osteomyelitis/aspiration pneumonia Toxic metabolic encephalopathy Severe dehydration with hyper natremia and elevated osmolality on admission Hypokalemia Hypophosphatemia Lactic acidosis Chronic anemia Dementia Parkinson disease Hypomagnesemia Swallow dysfunction on PEG tube feeding Moderate protein calorie malnutrition Resuscitation Status: 08/29/20 11:24 Resuscitation Status Routine Resuscitation Status: FULL: Full Resuscitation - Labs Lab Results: 09/04/20 05:33 09/04/20 05:33 Abnormal Lab Results - Last 48 hrs 09/03/20 06:09: Chloride 109 H, Creatinine 0.54 L, Calcium 7.3 L, Phosphorus 2.0 L, AST 51 H, Serum Total Protein 4.5 L, Albumin 1.9 L, Albumin/Globulin Ratio 0.7 L 09/03/20 06:09: WBC 11.0 H, RBC 3.70 L, Hgb 9.2 L, Hct 30.6 L, MCH 24.7 L, MCHC 29.9 L, RDW 15.3 H, Neutrophils % (Manual) 79 H, Band Neuts % (Manual) 2 L, Lymphocytes % (Manual) 14 L 09/04/20 05:33: Creatinine 0.57 L, Calcium 7.7 L, AST 47 H, Serum Total Protein 4.9 L, Albumin 2.0 L, Albumin/Globulin Ratio 0.7 L 09/04/20 05:33: RBC 3.72 L, Hgb 9.4 L, Hct 30.6 L, MCH 25.2 L, MCHC 30.6 L, RDW 15.7 H, Neutrophils % 77.6 H, Lymphocytes % 15.9 L, Neutrophils # 7.4 H 09/04/20 15:20: Phosphorus 2.2 L Microbiology - Entire Visit 08/29/20 09:16 Venous blood - Right Arm Blood Culture - Final NO GROWTH IN 5 DAYS 08/29/20 09:07 Venous blood - Left Arm Blood Culture - Final NO GROWTH IN 5 DAYS 08/29/20 13:25 Urine Straight Catheter Urine Culture - Final - Physical Exam Vitals: Vital Signs (12 hours) Temp Pulse Resp BP Pulse Ox 09/04/20 20:52 98.2 F 75 17 119/64 99 09/04/20 16:52 98.5 F 73 16 121/53 L 97 09/04/20 12:08 97.8 F 72 14 115/61 94 L Weight Admit Weight 136 lb 3.2 oz Weight 136 lb 3.225 oz Physical Exam: The patient was seen and examined on the day of discharge. Plan - Discharge Medications Prescriptions: Ertapenem [Invanz] 1 gm IVPB Q24HR #20 vial Home Medications: Medication Instructions Recorded Confirmed Type Donepezil HCl [Aricept] 5 mg PO DAILY tab 10/07/19 09/04/20 Rx Memantine HCl [Namenda] 20 mg PO DAILY tab 10/07/19 09/04/20 Rx Carbidopa/Levodopa 1 each PER TUBE BID 07/11/20 09/04/20 History [Carbidopa-Levodopa 25-100 Tab] QUEtiapine Fumarate [SEROquel] 25 mg PO BID 07/11/20 09/04/20 History Cyanocobalamin (Vitamin B-12) 1,000 mcg PO DAILY tab 09/04/20 Rx [Vitamin B-12] Enoxaparin Sodium [Lovenox] 40 mg SC DAILY 09/04/20 09/04/20 History Ertapenem [Invanz] 1 gm IVPB Q24HR #20 vial 09/04/20 Rx Folic Acid [Folvite] 1 mg PO DAILY tab 09/04/20 Rx Insulin Glargine [Lantus Vial] 20 units SC BID vial 09/04/20 Rx Lactobacillus [Floranex] 1 tab PO DAILY 09/04/20 09/04/20 History Allergies: Penicillins Allergy (Intermediate, Verified 09/29/19 00:38) Rash - Discharge Instructions Discharge Instructions:: IV Ertapenem for 3 week Insulin sliding scale - Follow up Plan Referrals: Mehran Noguera [Primary Care Provider] - Disposition: OTHER HOSPITAL IN Quality - Care Measures CORE MEASURES:: N/A
== END 2020-09-04 20:55 | DRG 871 ==
LOC: ERS 08:35 → SURG A 16:44
PROVIDERS: ADMIT Internal Medicine; ATTEND Internal Medicine
PROC: 02HV33Z Insertion of Infusion Device into Superior Vena Cava, Percutaneous Approach (ICD-10-PCS; principal; 2020-09-04)
PROC: B548ZZA Ultrasonography of Superior Vena Cava, Guidance (ICD-10-PCS; 2020-09-04)
DX: A41.9 Sepsis, unspecified organism (principal); L89.154 Pressure ulcer of sacral region, stage 4; J69.0 Pneumonitis due to inhalation of food and vomit; G92 Toxic encephalopathy; J96.01 Acute respiratory failure with hypoxia; E43 Unspecified severe protein-calorie malnutrition; M46.28 Osteomyelitis of vertebra, sacral and sacrococcygeal region; E87.0 Hyperosmolality and hypernatremia; E87.2 Acidosis; N39.0 Urinary tract infection, site not specified; L03.312 Cellulitis of back [any part except buttock and flank]; R65.20 Severe sepsis without septic shock; Z20.822 Contact with and (suspected) exposure to COVID-19; N73.2 Unspecified parametritis and pelvic cellulitis; E86.0 Dehydration; E83.39 Other disorders of phosphorus metabolism; D64.9 Anemia, unspecified; G20 Parkinson's disease; I10 Essential (primary) hypertension; E11.9 Type 2 diabetes mellitus without complications; F41.9 Anxiety disorder, unspecified; F32.9 Major depressive disorder, single episode, unspecified; R13.10 Dysphagia, unspecified; F02.80 Dementia in other diseases classified elsewhere, unspecified severity, without behavioral disturbance, psychotic disturbance, mood disturbance, and anxiety; E87.6 Hypokalemia; E83.42 Hypomagnesemia; Z88.0 Allergy status to penicillin; Z88.1 Allergy status to other antibiotic agents; Z79.82 Long term (current) use of aspirin; Z79.84 Long term (current) use of oral hypoglycemic drugs; Z79.899 Other long term (current) drug therapy; Z68.23 Body mass index [BMI] 23.0-23.9, adult; Z87.891 Personal history of nicotine dependence; Z93.1 Gastrostomy status
CPT/HCPCS: 0240U; 36415; 36416; 36569; 51701; 71045; 74177; 80048; 80053; 80069; 80202; 81003; 81015; 82010; 82805; 83605; 83690; 83735; 83880; 83930; 84100; 84484; 85025; 85610; 85652; 85730; 86140; 87040; 87086; 93005; 96365; 96367; 96375; C1751; J0692; J1644; J1650; J1815; J2270; J3370; J3490; J7030; J7050; Q9967